=== PATIENT | female | born 1940 | race Asian ===

== ENCOUNTER 2018-09-05 22:19 | Inpatient (IN) | payer OTHER ==
[2018-09-05] MEDS ORDERED: ACETAMINOPHEN 1000 MG/100 ML VIAL (NON FORMULARY) IVPB ONE (22:27)
[2018-09-05] MEDS ORDERED: ACETAMINOPHEN INJECTION 100 ML IVPB ONE (22:27)
[2018-09-05] MEDS ORDERED: ETOMIDATE 20 MG/10 ML AMPUL IVPUSH ONE ×2 (22:30→22:34)
[2018-09-05] MEDS ORDERED: LACTATED RINGERS SOLUTION 1,000 ML/1,000 ML INFUS.BAG IV SCH ×2 (22:30→22:45)
[2018-09-05] MEDS ORDERED: SUCCINYLCHOLINE CHLORIDE 200 MG/10 ML VIAL ONE (22:31)
[2018-09-05] MEDS ORDERED: SUCCINYLCHOLINE CHLORIDE 200 MG/10 ML VIAL IVPUSH ONE (22:34)
--- NOTE | 2018-09-05 22:46 | PDOC ---
Attending Attestation - HPI HPI: 09/05/18 23:02 The patient is a 81-year-old female, with a past medical history of dementia, hypertension, hyperlipidemia, and arthritis, who was BIBA from [facility] for sepsis workup. The patient was found unresponsive, tachycardic, with a fever of 106 and a respiratory rate of 46. Patient was intubated upon arrival to protect her airway. HPI limited due to patients clinical condition. - Physicial Exam PE: 09/05/18 23:02 GENERAL: Patient is unresponsive HEENT: (+)Very dry mucous membranes. Normocephalic, atraumatic. Oropharynx is clear. NECK: Supple. No JVD. Carotid pulses 2+ and symmetric, without bruits. No thyromegaly. No lymphadenopathy. CARDIOVASCULAR: (+)Tachycardic. No murmurs, rubs, or gallops. Distal pulses are 2+ and symmetric. PULMONARY: (+)Scattered rhonchi in lungs. No wheezing or rales. ABDOMINAL: Soft. Non-distended. Normoactive bowel sounds. EXTREMITIES: No cyanosis. No clubbing. No edema. No calf tenderness. SKIN: Warm and dry. Normal capillary refill. No rashes. No jaundice. NEUROLOGICAL: Unresponsive - Medical Decision Making 09/05/18 23:56 Patient was intubated, central line was placed, fluids given, antibiotics given , pressors given. <Rasheeda Kim - Last Filed: 09/05/18 23:56> - Resident Resident Name: Parish Astudillo - ED Attending Attestation I have performed the following: I have examined & evaluated the patient, The case was reviewed & discussed with the resident, I agree w/resident's findings & plan, Exceptions are as noted - HPI HPI: 09/05/18 22:45 78 yo female BIBA from [facility] unresponsive,tachycardic,febrile 106.2 - Physicial Exam PE: 09/05/18 22:46 slender 78 yo female found to be unresponsive with fever,tachycardia and respiratory rate of 46 head ncat oropharynx edentulous arches neck supple lungs +rhonchi cvs tachycardia very dry mucus meembranes abd soft skin dry neuro unresponsive - Medical Decision Making 09/06/18 01:33 IMP SEPSIS /SIRS ICU admission <Tammy Etienne - Last Filed: 09/06/18 01:33> Attestations - Attestations 09/05/18 23:09 Documentation prepared by Rasheeda Kim, acting as durable medical equipment repairer for Tammy Etienne MD. <Rasheeda Kim - Last Filed: 09/05/18 23:56> Critical Care Total Critical Care Time (in minutes): 90 Critical Care Statement: The care of this patient involved high complexity decision making to prevent further life threatening deterioration of the patient 's condition and/or to evaluate & treat vital organ system(s) failure or risk of failure. <Rasheeda Kim - Last Filed: 09/05/18 23:56>
--- NOTE | 2018-09-05 23:05 | PDOC ---
History of Present Illness - General Chief Complaint: SIRS, Suspected/Possible Stated Complaint: UNRESPONSIVE Time Seen by Provider: 09/05/18 22:45 - History of Present Illness Initial Comments: 09/05/18 23:00 Ms. Perea is a 78 yo female w/ pmh of HTN, HLD, dementia, and parkinson's BIBA from OR for unresponsiveness. Per usp patient was in her usual state of health at 6pm. Upon arrival patient was non-responsive w/ noted rectal temperature of 106.2. Blood glucose from EMS in 200 range. EMS unable to establish a BP and patient satting in high 80's on non-rebreather. Past History - Past Medical History Allergies/Adverse Reactions: Allergies Allergy/AdvReac Type Severity Reaction Status Date / Time bee pollen Allergy Verified 09/05/18 22:39 Home Medications: Ambulatory Orders Aa/[place] John,[place]/Arg/C/Zn/Cu [Lps Critical Care Liquid] 960 ml PO DAILY Benzocaine/Menthol [Cepacol Sore Throat Lozenge] 1 each MM DAILY 07/08/16 Calcium Carbonate [Calcium Antacid] 300 mg PO DAILY 07/08/16 Calcium Carbonate [Oyster Shell Calcium] 500 mg PO DAILY 07/08/16 Cetirizine HCl [Zyrtec -] 10 mg PO DAILY 07/08/16 Gabapentin 300 mg PO DAILY 07/08/16 Guaifenesin [Siltussin SA] 100 mg PO QID 07/08/16 Hypromellose 0.5% Opth Soln [Artificial Tears] 1 - 2 drop OU QID 07/08/16 [place] 3/Dha/Epa/Other Om3/D3 [[place]-3 + Vitamin D3 Liquid] 200 ml PO DAILY 07/08 Pramipexole Di-HCl [Mirapex] 0.125 mg PO DAILY 07/08/16 Ranitidine [Zantac -] 150 mg PO BID 07/08/16 Simvastatin 20 mg PO DAILY 07/08/16 Venlafaxine HCl ER [Effexor Xr -] 75 mg PO DAILY 07/08/16 Anemia: Yes Cancer: Yes (Brain Tumor (?)) COPD: No HTN: Yes Hypercholesterolemia: Yes - Surgical History Neurologic Surgery: Yes (brain 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 *Physical Exam - Vital Signs Last Vital Signs Temp Pulse Resp BP Pulse Ox 106.1 F H 156 H 46 H 106/80 97 09/05/18 22:20 09/05/18 22:20 09/05/18 22:20 09/05/18 22:20 09/05/18 22:20 - Physical Exam Comments: 09/05/18 23:04 GENERAL: +Patient non-responsive, mucous membranes extremely dry. HEAD: No signs of trauma, normocephalic, atraumatic EYES: PERRLA, sclera anicteric, conjunctiva clear NECK: Normal ROM, supple, no lymphadenopathy, JVD, or masses LUNGS: +Coarse breath sounds appreciated throughout. HEART: +Sinus tach at presentation, normal S1 and S2, no murmurs, rubs or gallops, peripheral pulses normal and equal bilaterally. ABDOMEN: Soft, normoactive bowel sounds. No guarding, no rebound. No masses EXTREMITIES: Normal inspection, Normal range of motion, no edema. No clubbing or cyanosis. NEUROLOGICAL: +Unable to assess SKIN: +Hot, Dry, normal turgor, no rashes or lesions noted. Moderate Sedation - Procedure Monitoring Vital Signs: Procedure Monitoring Vital Signs Temperature 106.1 F H 09/05/18 22:20 Pulse Rate 156 H 09/05/18 22:20 Respiratory Rate 46 H 09/05/18 22:20 Blood Pressure 106/80 09/05/18 22:20 O2 Sat by Pulse Oximetry (%) 97 09/05/18 22:20 Procedures - Central Line Central Line Lumen: triple Central Line Position: internal jugular (R) Anesthesia: 1% Lidocaine Amount of anesthesia (ccs): 1 Complications: none Post Central Line Insertion: sutured, good blood return, position confirmed w/ CXR - Intubation Time of Intubation: 23:00 Intubation Method: orotracheal Blade used: Mac Tube Size (Fr): 7.5 Medications: Etomidate, Succinylcholine Tube position @ lip (cm): 21 Tube position confirmed by: Direct visualization, CO2 detector, Chest x-ray, Breath sounds Breath Sounds after Intubation: equal Intubation Complications: no complications Post Intubation Xray: Yes ED Treatment Course - LABORATORY CBC & Chemistry Diagram: 09/05/18 23:02 09/05/18 23:02 Medical Decision Making - Medical Decision Making 09/05/18 23:03 Sepsis protocol started upon arrival for rectal temp 106.2. Patient was intubated for airway protection using 20mg etomidate and 100mg succinylcholine. De Anda catheter was placed and 2L fluids + tylenol started. Patient currently on ventilator undergoing workup for suspected sepsis. Will also evaluate with Head CT for r/o CVA. 09/06/18 00:26 Central line placed for pressure control. Levophed running as well as versed for sedation. Vanc/Zosyn started for prophylaxis. Patient admitted to ICU for further care. 09/06/18 00:58 Patient noted to go into self limited 30 seconds of vtach. Episode ended before amiodarone could be given. 2gm Magnesium given for prophylaxis. *DC/Admit/Observation/Transfer Diagnosis at time of Disposition: Septic shock - Discharge Dispostion Decision to Admit order: Yes - Referrals - Patient Instructions - Post Discharge Activity
[2018-09-05 23:17] LABS: BASO % 0.2 % (0-2.0); HEMATOCRIT 39.9 % (32.4-45.2); LYMPH % 11.1 % (8-40); MCH 30.4 pg (25.7-33.7); MCHC 32.7 g/dl (32.0-36.0); MEAN CELL VOLUME 93.1 fl (80-96); MEAN PLT VOLUME 8.4 fl (7.5-11.1); MONO % 5.4 % (3.8-10.2); NEUT % 83.3 % (42.8-82.8); PLATELET COUNT 381 K/MM3 (134-434); RBC 4.28 M/mm3 (3.60-5.2); RDW 13.5 % (11.6-15.6); WHITE BLOOD COUNT 20.5 K/mm3 (4.0-10.0)
[2018-09-05 23:19] LABS: URINE APPEARANCE SLCLOUDY; URINE BILIRUBIN NEGATIVE (<2.0 mg/dL); URINE COLOR AMBER; URINE GLUCOSE (UA) NEGATIVE (NEGATIVE); URINE KETONE NEGATIVE (NEGATIVE); URINE LEUK ESTERASE NEGATIVE (NEGATIVE); URINE NITRITE NEGATIVE (NEGATIVE); URINE PROTEIN 1+ (NEGATIVE); URINE UROBILINOGEN 4.0 E.U/dl mg/dL (0.2-1.0)
[2018-09-05 23:23] LABS: EPI CELLS RARE /HPF (FEW); URINE BACTERIA RARE /hpf (NONE SEEN); URINE HYALINE CAST 8 /lpf; URINE MUCUS MANY
[2018-09-05 23:24] LABS: VENOUS PC02 48.4 mmHg (38-52); VENOUS PH 7.26 (7.32-7.42); VENOUS PO2 39.9 mmHg (28-48)
[2018-09-05] MEDS ORDERED: MIDAZOLAM 100 MG/100 ML MG IVPB ONE (23:30)
[2018-09-05 23:31] LABS: INR 1.73 (0.83-1.09); PROTHROMBIN TIME (PATIENT) 20.5 SEC (9.7-13.0)
[2018-09-05 23:34] LABS: ACTIVATED PTT 64.4 SECONDS (25.2-36.5)
[2018-09-05] MEDS: MIDAZOLAM 100 MG in SODIUM CHLORIDE 100 ML IVPB SCH (23:37)
[2018-09-05 23:48] LABS: ALK PHOS 67 U/L (45-117); ANION GAP 14 MMOL/L (8-16); BILIRUBIN,TOTAL 1.3 mg/dL (0.2-1); BLOOD UREA NITROGEN 77 mg/dL (7-18); CALCIUM 10.1 mg/dL (8.5-10.1); CHLORIDE 119 mmol/L (98-107); CO2 21 mmol/L (21-32); CREATININE 3.6 mg/dL (0.55-1.3); GLUCOSE,RANDOM 180 mg/dL (74-106); SGOT/AST 34 U/L (15-37); SGPT/ALT 22 U/L (13-61); SODIUM 153 mmol/L (136-145); TOT PROT 6.7 g/dl (6.4-8.2)
[2018-09-05 23:52] LABS: PLATELET ESTIMATE ADEQUATE
[2018-09-05] MEDS ORDERED: PIPERACILLIN/TAZOB 3.375 GM 3.375 GM in DEXTROSE 5%-WATER - 50 ML IVPB ONE (23:52)
[2018-09-05] MEDS ORDERED: VANCOMYCIN 1 GRAM (PRE-DOCKED) 1,000 MG/250 ML BAG IVPB ONE (23:52)
[2018-09-06] MEDS ORDERED: VANCOMYCIN 1 GRAM (PRE-DOCKED) 1,000 MG/250 ML BAG IVPB ONE (00:03)
[2018-09-06] MEDS ORDERED: PIPERACILLIN/TAZOB 3.375 GM 3.375 GM/50 ML BAG IVPB ONE (00:04)
--- NOTE | 2018-09-06 00:22 | CONSULT ---
Consult Consult Specialty:: Critical Care Referred by:: Dr. Etienne Reason for Consultation:: Intubated needs ICU care - History of Present Illness Chief Complaint: unresponsiveness History of Present Illness: 78F with history of HTN, HLD, Dementia, brought in from [facility]dc for altered mental status eventually being unresponsive. According to sign out received from ER team the patient was in her usual state of health per fdc staff at [facility] around 6pm before becoming unresponsive. Patient presented to the ER BIBA and was noted to be tachycardic, tachypenic, desaturating to 80' s on 100% non rebreather, and febrile to 106.2 per ER staff. ER describes the patient as being very "dry" and under resuscitated and she was given IVF, antipyretics, central line placed, orogastric tube placed, and she was eventually intubated. Per EMS report her blood glucose was 200 in the field. Review of systems not done due to patient being intubated and sedated. - History Source History Provided By: Medical Record, Transfer Record Limitations to Obtaining History: Intubated - Past Medical History Cardio/Vascular: Yes: Hyperlipdemia Gastrointestinal: Yes: GERD Musculoskeletal: Yes: Other (neuropathy, RLS) Rheumatology: Yes: Other (osteoarthritis) - Alcohol/Substance Use Hx Alcohol Use: No - Smoking History Smoking history: Never smoked Have you smoked in the past 12 months: No Home Medications - Allergies Allergies/Adverse Reactions: Allergies Allergy/AdvReac Type Severity Reaction Status Date / Time bee pollen Allergy Verified 09/05/18 22:39 - Home Medications Home Medications: Ambulatory Orders Aa/[place] John,[place]/Arg/C/Zn/Cu [Lps Critical Care Liquid] 960 ml PO DAILY Benzocaine/Menthol [Cepacol Sore Throat Lozenge] 1 each MM DAILY 07/08/16 Calcium Carbonate [Calcium Antacid] 300 mg PO DAILY 07/08/16 Calcium Carbonate [Oyster Shell Calcium] 500 mg PO DAILY 07/08/16 Cetirizine HCl [Zyrtec -] 10 mg PO DAILY 07/08/16 Gabapentin 300 mg PO DAILY 07/08/16 Guaifenesin [Siltussin SA] 100 mg PO QID 07/08/16 Hypromellose 0.5% Opth Soln [Artificial Tears] 1 - 2 drop OU QID 07/08/16 [place] 3/Dha/Epa/Other Om3/D3 [[place]-3 + Vitamin D3 Liquid] 200 ml PO DAILY 07/08 Pramipexole Di-HCl [Mirapex] 0.125 mg PO DAILY 07/08/16 Ranitidine [Zantac -] 150 mg PO BID 07/08/16 Simvastatin 20 mg PO DAILY 07/08/16 Venlafaxine HCl ER [Effexor Xr -] 75 mg PO DAILY 07/08/16 Family Disease History - Family Disease History Family History: Unable to Obtain (intubated) Review of Systems Unable to obtain ROS, reason: intubated/unresponsive - Review of Systems Constitutional: reports: Fever Physical Exam Vital Signs: Vital Signs Temperature 106.1 F H 09/05/18 22:20 Pulse Rate 156 H 09/05/18 22:20 Respiratory Rate 12 09/05/18 22:40 Blood Pressure 106/80 09/05/18 22:20 O2 Sat by Pulse Oximetry (%) 97 09/05/18 22:20 Constitutional: Yes: Other (intubated and sedated) Eyes: Yes: Other (pupils reactive but sluggish; senile arcus) HENT: Yes: Atraumatic, Other (dry mucous membranes) Neck: Yes: Supple, Trachea Midline Cardiovascular: Yes: Regular Rate and Rhythm, Murmur (3/6 systolic murmur best heard at RUSB. Difficult to hear heart sounds due to loud ventilatory sounds and loud ER environement) Respiratory: Yes: Intubated, Other (bronchial breath sounds bilaterally; coarse breath sounds bilaterally) Gastrointestinal: Yes: Soft, Other (bruising all over abdomen) Renal/: Yes: De Anda Present Edema: No Integumentary: Yes: Bruising Neurological: Yes: Other (sedated) Labs: CBC, BMP 09/05/18 23:02 09/05/18 23:02 Imaging - Results Chest X-ray: Image Reviewed EKG: Image Reviewed Assessment/Plan 78F presents from [facility] unresponsive found to be febrile to 106.2 now s/ p intubated. Problem List: Fever Severe Hyperthermia Septic Shock Acute 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 Acute kidney injury Troponinemia-R/O ACS vs Demand Ischemia Hypernatremia coagulopathy r/o DIC Lactic Acidosis Hyperbilirubinemia HTN HLD GERD Alzheimer's Dementia Restless leg syndrome Neuropathy osteoarthritis history of hypocalcemia Plan: Admit to ICU Continue to bolus IVF/Maintenance IVF CVP monitoring Levophed for pressor support Antibiotics-Continue renally doses Zosyn Got vancomycin-check random vanco level and redose PRN ID consult Antipyretics PRN trend lactic acid Unknown source-negative UA negative CXR. consider french scanning patient (CT head chest ABD Pelv) to try and find a source f/u BCx F/U UCx UA negative check urine studies for Osm Urea sodium electrolytes Nephrology consult Cardiology consult trend troponin Check CK CXR noted to show tube at meka and slightly going into the right bronchus. Called respiratory therapist and asked to pull the tube from 22cm at the lip to 19cm at the lip. Repeat CXR ordered Echo Temperature now 100.0 when i assessed the patient trend sodium level trend calcium level replete electrolytes PRN Protonix Hold chemical DVT PPx due to patient being hypercoagulable-INR 1.75 and PTT 65 Will send D Dimer and Fibrinogen to asses if patient is going into DIC Get ABG Trend Bilirubin level Strict I/O's De Anda for urine output monitoring - Keep UOP at least 0.5ml/kg/hr CCTime 60 minutes Case discussed with Dr. Mora-Attending Hospitalist
[2018-09-06] MEDS: NOREPINEPHRINE BITARTRATE 8,000 MCG in DEXTROSE 5%-WATER - 492 ML IV SCH (00:36)
[2018-09-06] MEDS ORDERED: AMIODARONE HCL 150 MG/3 ML VIAL IVPUSH ONE (00:56)
[2018-09-06] MEDS ORDERED: MAGNESIUM SULF 50% (8.12 MEQ/2 ML-1 GM VIAL) IVPB ONE (00:57)
[2018-09-06] MEDS ORDERED: MAGNESIUM 1GM/D5W - 2 GM/200 ML IVPB IVPB ONE (01:00)
[2018-09-06] MEDS ORDERED: SODIUM CHLORIDE 1,000 ML IV STA (01:12)
[2018-09-06] MEDS ORDERED: SODIUM CHLORIDE 1,000 ML IV SCH (01:15)
[2018-09-06] MEDS ORDERED: LACTATED RINGERS SOLUTION 1000 ML INFUS.BAG IV ONE (01:32)
--- NOTE | 2018-09-06 02:06 | HP ---
CHIEF COMPLAINT: unresponsiveness PCP: Kylie History obtained from EMR as patient is unresponsive and nonverbal HISTORY OF PRESENT ILLNESS: 78 yo female w/ pmh of HTN, HLD, dementia, and parkinson's BIBA from [place] for unresponsiveness. Patient was in her usual state of health at 6pm on 09/05. Upon arrival patient was non-responsive w/ noted rectal temperature of 106.2. Patient was intubated for 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 and right IJ was placed for pressor administration. Broad spectrum antibiotics- vancomycin and zosyn were administered. ER course was notable for: (1) right IJ (2) intubation (3) zosyn, vancomycin Recent Travel: unknown PAST MEDICAL HISTORY: HTN, HLD, dementia, and parkinsonism PAST SURGICAL HISTORY: unknown Social History: unknown Smoking: Alcohol: Drugs: Family History: unknown Allergies bee pollen Allergy (Verified 09/05/18 22:39) HOME MEDICATIONS: Home Medications Medication Instructions Recorded Aa/[place] John,[place]/Arg/C/Zn/Cu 960 ml PO DAILY 07/08/16 [Lps Critical Care Liquid] Benzocaine/Menthol [Cepacol Sore 1 each MM DAILY 07/08/16 Throat Lozenge] Calcium Carbonate [Calcium Antacid] 300 mg PO DAILY 07/08/16 Calcium Carbonate [Oyster Shell 500 mg PO DAILY 07/08/16 Calcium] Cetirizine HCl [Zyrtec -] 10 mg PO DAILY 07/08/16 Gabapentin 300 mg PO DAILY 07/08/16 Guaifenesin [Siltussin SA] 100 mg PO QID 07/08/16 Hypromellose 0.5% Opth Soln 1 - 2 drop OU QID 07/08/16 [Artificial Tears] [place] 3/Dha/Epa/Other Om3/D3 200 ml PO DAILY 07/08/16 [[place]-3 + Vitamin D3 Liquid] Pramipexole Di-HCl [Mirapex] 0.125 mg PO DAILY 07/08/16 Ranitidine [Zantac -] 150 mg PO BID 07/08/16 Simvastatin 20 mg PO DAILY 07/08/16 Venlafaxine HCl ER [Effexor Xr -] 75 mg PO DAILY 07/08/16 REVIEW OF SYSTEMS -unable to obtain PHYSICAL EXAMINATION Vital Signs - 24 hr 09/05/18 09/05/18 09/05/18 22:20 22:40 23:00 Temperature 106.1 F H 106.1 F H Pulse Rate 156 H 156 H Pulse Rate [ 156 H Left Radial] Respiratory 46 H 12 156 H Rate Blood Pressure 106/80 106/80 Blood Pressure 106/80 [Right Arm] O2 Sat by Pulse 97 97 Oximetry (%) 09/06/18 09/06/18 09/06/18 00:33 00:36 00:56 Temperature 100 F H Pulse Rate 96 H Pulse Rate [ 94 H 102 H Left Radial] Respiratory 14 Rate Blood Pressure 66/46 L Blood Pressure 66/46 L 99/59 L [Right Arm] O2 Sat by Pulse 100 Oximetry (%) 09/06/18 09/06/18 09/06/18 01:02 01:20 01:24 Temperature Pulse Rate Pulse Rate [ 99 H 95 H Left Radial] Respiratory 15 15 18 Rate Blood Pressure Blood Pressure 93/54 L 92/56 L [Right Arm] O2 Sat by Pulse 100 100 Oximetry (%) 09/06/18 01:44 Temperature Pulse Rate Pulse Rate [ 96 H Left Radial] Respiratory 15 Rate Blood Pressure Blood Pressure 97/59 L [Right Arm] O2 Sat by Pulse 100 Oximetry (%) GENERAL: intubated, unresponsive, sedated HEAD: Normal with no signs of trauma. EYES: Pupils equal, round and reactive to light, extraocular movements intact, sclera anicteric, conjunctiva clear. No lid lag. EARS, NOSE, THROAT: Ears normal, nares patent, oropharynx clear without exudates. Moist mucous membranes. NECK: Normal range of motion, supple without lymphadenopathy, JVD, or masses, right IJ LUNGS: Breath sounds equal, mechanical, no wheezing or crackles appreciated HEART: tachycardia, normal S1 and S2 without murmur, rub or gallop. ABDOMEN: Soft, nontender, not distended, normoactive bowel sounds, no guarding, no rebound, no masses. No hepatomegaly or splenomegaly. MUSCULOSKELETAL: Normal range of motion at all joints. No bony deformities or tenderness. No CVA tenderness. UPPER EXTREMITIES: 2+ pulses, warm, well-perfused. No cyanosis. No clubbing. No peripheral edema. LOWER EXTREMITIES: 2+ pulses, warm, well-perfused. No calf tenderness. No peripheral edema. NEUROLOGICAL: sedated SKIN: Warm, dry, normal turgor, no rashes or lesions noted Elder+ Laboratory Results - last 24 hr 09/05/18 09/05/18 09/05/18 22:45 23:02 23:02 WBC 20.5 H RBC 4.28 Hgb 13.0 Hct 39.9 MCV 93.1 MCH 30.4 MCHC 32.7 RDW 13.5 D Plt Count 381 MPV 8.4 D Absolute Neuts (auto) 17.0 H Total Counted 100 Neutrophils % 83.3 H Neutrophils % (Manual) 85.0 H Band Neutrophils % 2.0 Lymphocytes % 11.1 D Lymphocytes % (Manual) 7.0 L Monocytes % 5.4 Monocytes % (Manual) 6 Eosinophils % 0.0 D Basophils % 0.2 Nucleated RBC % 0 Platelet Estimate Adequate Platelet Comment No clumping noted PT with INR 20.50 H INR 1.73 H PTT (Actin FS) 64.4 H VBG pH POC VBG pCO2 POC VBG pO2 Mixed VBG HCO3 Sodium Potassium Chloride Carbon Dioxide Anion Gap BUN Creatinine Creat Clearance w eGFR Random Glucose Lactic Acid 6.7 H* Calcium Total Bilirubin AST ALT Alkaline Phosphatase Troponin I Total Protein Albumin Urine Color Urine Appearance Urine pH Ur Specific [place] Urine Protein Urine Glucose (UA) Urine Ketones Urine Blood Urine Nitrite Urine Bilirubin Urine Urobilinogen Ur Leukocyte Esterase Urine WBC (Auto) Urine RBC (Auto) Ur Epithelial Cells Urine Bacteria Hyaline Casts Urine Mucus 09/05/18 09/05/18 09/05/18 23:02 23:02 23:02 WBC RBC Hgb Hct MCV MCH MCHC RDW Plt Count MPV Absolute Neuts (auto) Total Counted Neutrophils % Neutrophils % (Manual) Band Neutrophils % Lymphocytes % Lymphocytes % (Manual) Monocytes % Monocytes % (Manual) Eosinophils % Basophils % Nucleated RBC % Platelet Estimate Platelet Comment PT with INR INR PTT (Actin FS) VBG pH 7.26 L POC VBG pCO2 48.4 POC VBG pO2 39.9 Mixed VBG HCO3 20.8 Sodium 153 H Potassium 5.0 Chloride 119 H Carbon Dioxide 21 Anion Gap 14 BUN 77 H Creatinine 3.6 H Creat Clearance w eGFR 12.29 Random Glucose 180 H Lactic Acid Calcium 10.1 Total Bilirubin 1.3 H AST 34 ALT 22 Alkaline Phosphatase 67 Troponin I 2.59 H* Total Protein 6.7 Albumin 3.0 L Urine Color Carli Urine Appearance Slcloudy Urine pH 5.0 Ur Specific [place] 1.024 Urine Protein 1+ H Urine Glucose (UA) Negative Urine Ketones Negative Urine Blood Negative Urine Nitrite Negative Urine Bilirubin Negative Urine Urobilinogen 4.0 e.u/dl H Ur Leukocyte Esterase Negative Urine WBC (Auto) 2 Urine RBC (Auto) 1 Ur Epithelial Cells Rare Urine Bacteria Rare Hyaline Casts 8 Urine Mucus Many EKG reviewed- sinus tachycardia cxr - ET tube appeared to be in past meka in right bronchus, will reposition ASSESSMENT/PLAN: 78yo woman with septic shock with unknown source of infection 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, MODS, HAGMA, severe lactic acidosis. Hypernatremia likely from dehydration. Renal failure may be secondary to sepsis vs prerenal. +troponin might be from demand ischemia but cannot r/o ACS. NO signs of acute ischemia on ekg. -admit to ICU -ventilator and manage setting as per ABG result -blood cultures -urine culture -i/o -daily weight -elder catheter for accurate i/o -trend lactate -send ddimer and fibronogen to r/o DIC -repeat bmp q 4hrs, careful not to overcorrect sodium -IV fluid hydration -c/w pressor, maintain MAP >65 -CT of head/ chest/ abd/pelvis to r/o occult source of infection and r/o acute intracranial insults -avoid contrast due to CROW -zosyn -vancomycin -ID consult -renal consult -cardiology consult -aspirin -plavix -renal lytes, serum and urine osm -avoid uneccessary nephrotoxins -blood glucose monitoring -aim for glucose <180 mg/dl -NPO for now -reposition ET, repeat CXR -SCDs for DVT ppx -patient is full code DIscussed with housestaff critical care time 35min Visit type - Emergency Visit Emergency Visit: Yes ED Registration Date: 09/06/18 Care time: The patient presented to the Emergency Department on the above date and was hospitalized for further evaluation of their emergent condition. - New Patient This patient is new to me today: Yes Date on this admission: 09/06/18 - Critical Care Critical Care patient: Yes Total Critical Care Time (in minutes): 35 Critical Care Statement: The care of this patient involved high complexity decision making to prevent further life threatening deterioration of the patient 's condition and/or to evaluate & treat vital organ system(s) failure or risk of failure.
[2018-09-06] MEDS: LACTATED RINGERS SOLUTION 1,000 ML/1,000 ML INFUS.BAG IV SCH (04:00)
[2018-09-06] MEDS ORDERED: DEXAMETHASONE SOD PHOSPHATE 10 MG/1 ML VIAL IVPUSH ONE (05:22)
[2018-09-06 06:13] LABS: INR 1.4 (0.83-1.09); PROTHROMBIN TIME (PATIENT) 16.6 SEC (9.7-13.0)
[2018-09-06 06:16] LABS: ACTIVATED PTT 52.5 SECONDS (25.2-36.5)
[2018-09-06] MEDS: levETIRAcetam 500 MG/5 ML INJECTION VIAL IVPB SCH ×2 (06:19→21:37)
[2018-09-06 06:27] LABS: BASO % 0.3 % (0-2.0); HEMATOCRIT 35.8 % (32.4-45.2); HEMOGLOBIN 11.2 GM/dL (10.7-15.3); LYMPH % 14.9 % (8-40); MCH 29.2 pg (25.7-33.7); MCHC 31.3 g/dl (32.0-36.0); MEAN CELL VOLUME 93.2 fl (80-96); MEAN PLT VOLUME 8.7 fl (7.5-11.1); MONO % 9.1 % (3.8-10.2); NEUT % 75.7 % (42.8-82.8); PLATELET COUNT 317 K/MM3 (134-434); RBC 3.84 M/mm3 (3.60-5.2); RDW 12.9 % (11.6-15.6); WHITE BLOOD COUNT 16.3 K/mm3 (4.0-10.0)
[2018-09-06 06:28] LABS: ALBUMIN 2.7 g/dl (3.4-5.0); ALK PHOS 58 U/L (45-117); ANION GAP 11 MMOL/L (8-16); BILIRUBIN,TOTAL 1.8 mg/dL (0.2-1); BLOOD UREA NITROGEN 65 mg/dL (7-18); CALCIUM 9.1 mg/dL (8.5-10.1); CHLORIDE 114 mmol/L (98-107); CO2 21 mmol/L (21-32); CREATININE 2.7 mg/dL (0.55-1.3); GLUCOSE,RANDOM 287 mg/dL (74-106); PHOSPHOROUS 2.8 mg/dL (2.5-4.9); POTASSIUM 3.1 mmol/L (3.5-5.1); SGOT/AST 37 U/L (15-37); SGPT/ALT 24 U/L (13-61); SODIUM 147 mmol/L (136-145); TOT PROT 5.8 g/dl (6.4-8.2)
[2018-09-06 07:04] LABS: CARBOXYHEMOGLOBIN 0.9 gm% (0.5-2.0)
--- NOTE | 2018-09-06 07:33 | PN ---
Physical Exam: SUBJECTIVE: Patient seen and examined at bedside. Pt placed on pressors, IV fluids. Off sedation, but nonresponsive and stable overnight. OBJECTIVE: Vital Signs Period Temp Pulse Resp BP Sys/Fried Pulse Ox Last 24 Hr 99 F-106.1 F 90-156 12-156 66-114/46-80 95-100 GENERAL: Intubated. NAD. HEENT: AT/NC. Pupils constricted b/l. Dry mucus membranes. NECK: Supple. LUNGS: CTA B/L. No wheezes noted. HEART: RRR. Normal S1, S2. ABDOMEN: Soft, NT/ND. Normoactive BS in all 4Qs. EXTREMITIES: 2+ pulses, warm, well-perfused, no edema. NEUROLOGICAL: Unable to assess. SKIN: Warm, dry. Laboratory Results - last 24 hr 09/05/18 09/05/18 09/05/18 22:45 23:02 23:02 WBC 20.5 H RBC 4.28 Hgb 13.0 Hct 39.9 MCV 93.1 MCH 30.4 MCHC 32.7 RDW 13.5 D Plt Count 381 MPV 8.4 D Absolute Neuts (auto) 17.0 H Total Counted 100 Neutrophils % 83.3 H Neutrophils % (Manual) 85.0 H Band Neutrophils % 2.0 Lymphocytes % 11.1 D Lymphocytes % (Manual) 7.0 L Monocytes % 5.4 Monocytes % (Manual) 6 Eosinophils % 0.0 D Basophils % 0.2 Nucleated RBC % 0 Platelet Estimate Adequate Platelet Comment No clumping noted PT with INR 20.50 H INR 1.73 H PTT (Actin FS) 64.4 H Fibrinogen D-Dimer VBG pH POC VBG pCO2 POC VBG pO2 Mixed VBG HCO3 Carboxyhemoglobin Methemoglobin Sodium Potassium Chloride Carbon Dioxide Anion Gap BUN Creatinine Creat Clearance w eGFR Random Glucose Lactic Acid 6.7 H* Calcium Phosphorus Magnesium Total Bilirubin AST ALT Alkaline Phosphatase Creatine Kinase Creatine Kinase Index CK-MB (CK-2) Troponin I Total Protein Albumin Urine Color Urine Appearance Urine pH Ur Specific [place] Urine Protein Urine Glucose (UA) Urine Ketones Urine Blood Urine Nitrite Urine Bilirubin Urine Urobilinogen Ur Leukocyte Esterase Urine WBC (Auto) Urine RBC (Auto) Ur Epithelial Cells Urine Bacteria Hyaline Casts Urine Mucus Urine Osmolality Ur Random Sodium Ur Random Potassium Ur Random Chloride Ur Random Urea Nitrogn Urine Creatinine Random Vancomycin 09/05/18 09/05/18 09/05/18 23:02 23:02 23:02 WBC RBC Hgb Hct MCV MCH MCHC RDW Plt Count MPV Absolute Neuts (auto) Total Counted Neutrophils % Neutrophils % (Manual) Band Neutrophils % Lymphocytes % Lymphocytes % (Manual) Monocytes % Monocytes % (Manual) Eosinophils % Basophils % Nucleated RBC % Platelet Estimate Platelet Comment PT with INR INR PTT (Actin FS) Fibrinogen D-Dimer VBG pH 7.26 L POC VBG pCO2 48.4 POC VBG pO2 39.9 Mixed VBG HCO3 20.8 Carboxyhemoglobin Methemoglobin Sodium 153 H Potassium 5.0 Chloride 119 H Carbon Dioxide 21 Anion Gap 14 BUN 77 H Creatinine 3.6 H Creat Clearance w eGFR 12.29 Random Glucose 180 H Lactic Acid Calcium 10.1 Phosphorus Magnesium Total Bilirubin 1.3 H AST 34 ALT 22 Alkaline Phosphatase 67 Creatine Kinase Creatine Kinase Index CK-MB (CK-2) Troponin I 2.59 H* Total Protein 6.7 Albumin 3.0 L Urine Color Carli Urine Appearance Slcloudy Urine pH 5.0 Ur Specific [place] 1.024 Urine Protein 1+ H Urine Glucose (UA) Negative Urine Ketones Negative Urine Blood Negative Urine Nitrite Negative Urine Bilirubin Negative Urine Urobilinogen 4.0 e.u/dl H Ur Leukocyte Esterase Negative Urine WBC (Auto) 2 Urine RBC (Auto) 1 Ur Epithelial Cells Rare Urine Bacteria Rare Hyaline Casts 8 Urine Mucus Many Urine Osmolality Ur Random Sodium Ur Random Potassium Ur Random Chloride Ur Random Urea Nitrogn Urine Creatinine Random Vancomycin 09/06/18 09/06/18 09/06/18 02:08 02:08 02:08 WBC RBC Hgb Hct MCV MCH MCHC RDW Plt Count MPV Absolute Neuts (auto) Total Counted Neutrophils % Neutrophils % (Manual) Band Neutrophils % Lymphocytes % Lymphocytes % (Manual) Monocytes % Monocytes % (Manual) Eosinophils % Basophils % Nucleated RBC % Platelet Estimate Platelet Comment PT with INR INR PTT (Actin FS) Fibrinogen 238.0 D-Dimer 4076 H VBG pH POC VBG pCO2 POC VBG pO2 Mixed VBG HCO3 Carboxyhemoglobin Methemoglobin Sodium Potassium Chloride Carbon Dioxide Anion Gap BUN Creatinine Creat Clearance w eGFR Random Glucose Lactic Acid 3.2 H* Calcium Phosphorus Magnesium Total Bilirubin AST ALT Alkaline Phosphatase Creatine Kinase 191 Creatine Kinase Index 2.2 CK-MB (CK-2) 4.3 H Troponin I 3.41 H* Total Protein Albumin Urine Color Urine Appearance Urine pH Ur Specific [place] Urine Protein Urine Glucose (UA) Urine Ketones Urine Blood Urine Nitrite Urine Bilirubin Urine Urobilinogen Ur Leukocyte Esterase Urine WBC (Auto) Urine RBC (Auto) Ur Epithelial Cells Urine Bacteria Hyaline Casts Urine Mucus Urine Osmolality Ur Random Sodium Ur Random Potassium Ur Random Chloride Ur Random Urea Nitrogn Urine Creatinine Random Vancomycin 09/06/18 09/06/18 09/06/18 02:12 02:12 05:15 WBC RBC Hgb Hct MCV MCH MCHC RDW Plt Count MPV Absolute Neuts (auto) Total Counted Neutrophils % Neutrophils % (Manual) Band Neutrophils % Lymphocytes % Lymphocytes % (Manual) Monocytes % Monocytes % (Manual) Eosinophils % Basophils % Nucleated RBC % Platelet Estimate Platelet Comment PT with INR 16.60 H INR 1.40 H PTT (Actin FS) 52.5 H Fibrinogen D-Dimer VBG pH POC VBG pCO2 POC VBG pO2 Mixed VBG HCO3 Carboxyhemoglobin Methemoglobin Sodium Potassium Chloride Carbon Dioxide Anion Gap BUN Creatinine Creat Clearance w eGFR Random Glucose Lactic Acid Calcium Phosphorus Magnesium Total Bilirubin AST ALT Alkaline Phosphatase Creatine Kinase Creatine Kinase Index CK-MB (CK-2) Troponin I Total Protein Albumin Urine Color Urine Appearance Urine pH Ur Specific [place] Urine Protein Urine Glucose (UA) Urine Ketones Urine Blood Urine Nitrite Urine Bilirubin Urine Urobilinogen Ur Leukocyte Esterase Urine WBC (Auto) Urine RBC (Auto) Ur Epithelial Cells Urine Bacteria Hyaline Casts Urine Mucus Urine Osmolality 589 Ur Random Sodium < 18 L Ur Random Potassium 92.0 Ur Random Chloride 12 L Ur Random Urea Nitrogn 719 Urine Creatinine 339.0 H Random Vancomycin 09/06/18 09/06/18 09/06/18 05:15 05:15 05:15 WBC RBC Hgb Hct MCV MCH MCHC RDW Plt Count MPV Absolute Neuts (auto) Total Counted Neutrophils % Neutrophils % (Manual) Band Neutrophils % Lymphocytes % Lymphocytes % (Manual) Monocytes % Monocytes % (Manual) Eosinophils % Basophils % Nucleated RBC % Platelet Estimate Platelet Comment PT with INR INR PTT (Actin FS) Fibrinogen D-Dimer VBG pH POC VBG pCO2 POC VBG pO2 Mixed VBG HCO3 Carboxyhemoglobin Methemoglobin Sodium 147 H Potassium 3.1 L Chloride 114 H Carbon Dioxide 21 Anion Gap 11 BUN 65 H Creatinine 2.7 H Creat Clearance w eGFR 17.13 Random Glucose 287 H Lactic Acid 2.1 H Calcium 9.1 Phosphorus 2.8 Magnesium 3.0 H Total Bilirubin 1.8 H AST 37 ALT 24 Alkaline Phosphatase 58 Creatine Kinase 298 H Creatine Kinase Index 2.7 CK-MB (CK-2) 8.2 H Troponin I 3.82 H* Total Protein 5.8 L Albumin 2.7 L Urine Color Urine Appearance Urine pH Ur Specific [place] Urine Protein Urine Glucose (UA) Urine Ketones Urine Blood Urine Nitrite Urine Bilirubin Urine Urobilinogen Ur Leukocyte Esterase Urine WBC (Auto) Urine RBC (Auto) Ur Epithelial Cells Urine Bacteria Hyaline Casts Urine Mucus Urine Osmolality Ur Random Sodium Ur Random Potassium Ur Random Chloride Ur Random Urea Nitrogn Urine Creatinine Random Vancomycin 20.2 09/06/18 06:10 WBC RBC Hgb Hct MCV MCH MCHC RDW Plt Count MPV Absolute Neuts (auto) Total Counted Neutrophils % Neutrophils % (Manual) Band Neutrophils % Lymphocytes % Lymphocytes % (Manual) Monocytes % Monocytes % (Manual) Eosinophils % Basophils % Nucleated RBC % Platelet Estimate Platelet Comment PT with INR INR PTT (Actin FS) Fibrinogen D-Dimer VBG pH POC VBG pCO2 POC VBG pO2 Mixed VBG HCO3 Carboxyhemoglobin 0.9 Methemoglobin 0.2 L Sodium Potassium Chloride Carbon Dioxide Anion Gap BUN Creatinine Creat Clearance w eGFR Random Glucose Lactic Acid Calcium Phosphorus Magnesium Total Bilirubin AST ALT Alkaline Phosphatase Creatine Kinase Creatine Kinase Index CK-MB (CK-2) Troponin I Total Protein Albumin Urine Color Urine Appearance Urine pH Ur Specific [place] Urine Protein Urine Glucose (UA) Urine Ketones Urine Blood Urine Nitrite Urine Bilirubin Urine Urobilinogen Ur Leukocyte Esterase Urine WBC (Auto) Urine RBC (Auto) Ur Epithelial Cells Urine Bacteria Hyaline Casts Urine Mucus Urine Osmolality Ur Random Sodium Ur Random Potassium Ur Random Chloride Ur Random Urea Nitrogn Urine Creatinine Random Vancomycin Active Medications Generic Name Dose Route Start Last Admin Trade Name Freq PRN Reason Stop Dose Admin Chlorhexidine Gluconate 1 applic 09/06/18 22:00 Hibiclens For Decolonization - TP HS [facility] Dexamethasone Sodium Phosphate 6 mg 09/06/18 09:00 Decadron Injection - IVPUSH Q6H-IV G[facility] Midazolam HCl 100 mg/ Sodium 100 mls @ 1 mls/hr 09/05/18 23:00 09/05/18 23:37 Chloride IVPB 1 mg/hr TITR GARRISON 1 mls/hr Administration Protocol 1 MG/HR Norepinephrine Bitartrate 8, 500 mls @ 18.75 mls/hr 09/05/18 23:45 09/06/18 00:36 000 mcg/ Dextrose IV 5 mcg/min TITR G[facility]ISON 18.75 mls/hr Administration Protocol 5 MCG/MIN Piperacillin Sod/Tazobactam 50 mls @ 100 mls/hr 09/06/18 18:00 Sod 2.25 gm/ Dextrose IVPB Q8H-IV [facility]ISON Protocol Lactated Ringer's 1,000 ml in 1,000 mls @ 125 mls/hr 09/06/18 01:45 09/06/18 04:00 Lactated Ringers Solution IV 125 mls/hr ASDIR GARR[facility] Administration Piperacillin Sod/Tazobactam 50 mls @ 100 mls/hr 09/06/18 08:00 Sod 2.25 gm/ Dextrose IVPB 09/06/18 08:29 ONCE ONE Protocol Levetiracetam 500 mg 09/06/18 06:15 09/06/18 06:19 Keppra Injection - IVPB 500 mg BID G[facility] Administration Mupirocin 1 applic 09/06/18 10:00 Bactroban Ointment (For Decolonization) - NS 09/11/18 09:59 BID G[facility] Pantoprazole Sodium 40 mg 09/06/18 10:00 Protonix Iv IVPUSH DAILY [facility] ASSESSMENT/PLAN: 78yo woman with septic shock with unknown source of infection 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, MODS, HAGMA, severe lactic acidosis. Hypernatremia likely from dehydration. Renal failure may be secondary to sepsis vs prerenal. Neurology #Multiple brain lesions, edema, midline shift found on head CT -Decadron 6 mg Q6H -Keppra 500 BID -monitor CVP, maintain at 8-12 -Pt came in with fever of 106.9 rectally, there is a possibility this may be central vs. infectious etiology due to significant multiple lesion w/ midline shift on head CT -Neurosurg consulted, recommended to transfer to [facility]. Per night resident , report was given to [facility] neurosurg resident as well as ICU attending. Awaiting callback for accepting physician and available bed at [facility]. #Alzheimer's Dementia -hold home meds Pulmonary #Acute Respiratory Failure 2/2 ? septic shock -Intubated. 12/400/60%/5 -CT chest showed honeycombing and cystic changes w/ pleural thickening and small calcifications on R lung apex. Bibasal atelectatic changes w/ mild pleural thickening and trace b/l pleural effusion; cannot r/o superimposed infiltrates. No evid of SBO. Cardiology #Shock 2/2 sepsis vs. neurogenic -cont IVf -IV pressors, maintain MAP >65 #Elevated troponins, likely 2/2 demand ischemia -2.49>3.41>3.82; repeat trops ordered -EKG showed sinus tachycardia, no evidence of ST-T changes or acute ischemic changes -Echo ordered #HTN -Currently hypotensive 2/2 septic shock -On Levophed 10 #HLD -hold home meds for now GI #GERD -Protonix 40 QD #Hyperbilirubinemia -CTAP showed unremarkable spleen/liver. GB overdistended w/ tiny stones layering at fundus. Pancreas and adrenal glands both unremarkable. Renal #CROW, likely 2/2 dehydration -no evidence of hydronephrosis -IVf -recheck CMP #Hypernatremia -LR @ 125 -recheck CMP #Hypokalemia -KCl 10 mEq x3 bags -replete PRN -recheck K+ ID #Septic Shock 2/2 unknown etiology -Vancomycin and Zosyn given -Per ID, add Cefepime -106.9 rectal temp; may be due to central process, but need to r/o infection first -f/u BCx, UCx -CXR showed b/l apical pleural thickening, chronic post-inflammatory changes noted in R apex w/ peribronchial thickening, cystic changes. #Lactic acidosis -6.7 > 3.2 > 2.1 -IVf given Hematology #Coagulopathy; elevated INR -2U FFP ordered Prophylaxis GI- Protonix 40 IVP QD DVT- SCDs; hold chemical ppx due to elevated INR FEN -LR @ 125 -K+ repleted; recheck CMP -NPO dispo -Spoke to Santos at [facility] regarding status pt transfer. Pt has been accepted to the ICU under Dr. Cueto, however, waiting for available bed. Awaiting call back. Visit type - Emergency Visit Emergency Visit: Yes ED Registration Date: 09/06/18 Care time: The patient presented to the Emergency Department on the above date and was hospitalized for further evaluation of their emergent condition. - New Patient This patient is new to me today: Yes Date on this admission: 09/06/18 - Critical Care Critical Care patient: Yes Total Critical Care Time (in minutes): 40 Critical Care Statement: The care of this patient involved high complexity decision making to prevent further life threatening deterioration of the patient 's condition and/or to evaluate & treat vital organ system(s) failure or risk of failure.
[2018-09-06] MEDS ORDERED: PIPERACILLIN/TAZOB 2.25 GM 2.25 GM in DEXTROSE 5%-WATER - 50 ML IVPB ONE (08:00)
[2018-09-06] MEDS ORDERED: NOREPINEPHRINE BITARTRATE 4 MG/4 ML ML IV ONE (08:44)
[2018-09-06] MEDS: DEXAMETHASONE SOD PHOSPHATE 10 MG/1 ML VIAL IVPUSH SCH ×3 (09:35→21:37)
--- NOTE | 2018-09-06 09:43 | CON.ID ---
Consult Consult Specialty:: infectious disease Referred by:: dr keating - History of Present Illness Chief Complaint: fever 106 History of Present Illness: 78 yo female NHR prior brain surgery 2013 found unresponsive with fever 106 at the [place] she was sent to ED where she was intubated for airway protection she was treated with IVF and vancomycin/zosyn she was started on levophed ct scans of chest abd/pelvis were done- prelim report with bronchiectasis RUL head ct with larg right brain mass with edema and question of bleeding into the orbit there is midline shift now on steroids and keppra she is unresponsive and intubated - History Source History Provided By: Medical Record Limitations to Obtaining History: Clinical Condition - Past Medical History AUDIT INTERN: Yes: Dementia Cardio/Vascular: Yes: HTN, Hyperlipdemia Gastrointestinal: Yes: GERD Musculoskeletal: Yes: Other (neuropathy, RLS) Rheumatology: Yes: Other (osteoarthritis) - Past Surgical History Additional Surgical History: prior brain surgery 2012- details unknown - Alcohol/Substance Use Hx Alcohol Use: No - Smoking History Smoking history: Never smoked Have you smoked in the past 12 months: No - Social History Usual Living Arrangement: [facility] ADL: Support Services 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 Place of : Other ([facility]) History of Recent Travel: No Home Medications - Allergies Allergies/Adverse Reactions: Allergies Allergy/AdvReac Type Severity Reaction Status Date / Time bee pollen Allergy Verified 09/05/18 22:39 - Home Medications Home Medications: Ambulatory Orders Calcium Carbonate [Oyster Shell Calcium] 500 mg PO DAILY 07/08/16 Gabapentin 300 mg PO TID 07/08/16 Pramipexole Di-HCl [Mirapex] 0.125 mg PO DAILY 07/08/16 Ranitidine [Zantac -] 150 mg PO DAILY 07/08/16 Simvastatin 20 mg PO DAILY 07/08/16 Albuterol 2.5/Ipratropium 0.5 [Duoneb -] 3 ml IH QID 09/06/18 Heparin - 5,000 unit SQ BID 09/06/18 Polyvinyl Alcohol [Artificial Tears] 1 drop OD DAILY 09/06/18 Family Disease History - Family Disease History Family History: Unable to Obtain Review of Systems Unable to obtain ROS, reason: unable to obtain Physical Exam Vital Signs: Vital Signs Temperature 97.4 F L 09/06/18 08:00 Pulse Rate 89 09/06/18 08:23 Respiratory Rate 17 09/06/18 08:23 Blood Pressure 124/75 09/06/18 08:00 O2 Sat by Pulse Oximetry (%) 98 09/06/18 08:23 Constitutional: Yes: Thin HENT: Yes: Atraumatic, Normocephalic, Other (orally intubated) Cardiovascular: Yes: Regular Rate and Rhythm Respiratory: Yes: CTA Bilaterally, Diminished Gastrointestinal: Yes: Normal Bowel Sounds, Soft ...Rectal Exam: Yes: Deferred Renal/: No: Bladder Distention Musculoskeletal: Yes: WNL Extremities: Yes: WNL Edema: No Integumentary: Yes: Other (no skin breakdown). No: Rash Neurological: Yes: Unresponsive Labs: CBC, BMP 09/06/18 05:15 09/06/18 05:15 UA negative cultures pending Laboratory Tests 09/05/18 09/05/18 09/06/18 22:45 23:02 02:08 Lactic Acid 6.7 H* Troponin I 2.59 H* 3.41 H* Random Vancomycin 09/06/18 09/06/18 09/06/18 02:08 05:15 05:15 Lactic Acid 3.2 H* Troponin I 3.82 H* Random Vancomycin 20.2 09/06/18 05:15 Lactic Acid 2.1 H Troponin I Random Vancomycin Imaging - Results Chest X-ray: Report Reviewed Cat Scan: Report Reviewed Problem List - Problems (1) Septic shock Code(s): A41.9 - SEPSIS, UNSPECIFIED ORGANISM; R65.21 - SEVERE SEPSIS WITH SEPTIC SHOCK (2) Fever Code(s): R50.9 - FEVER, UNSPECIFIED (3) Hypotension Code(s): I95.9 - HYPOTENSION, UNSPECIFIED (4) 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 Assessment/Plan sepsis suspect fever/hypotension due to AUDIT INTERN process but agree with cultures/antiibotics no history of MDRO vancomycin "on board"- redose by levels will add cefepime and flagyl received zosyn overnight CROW (new)- no evidence of hydronelphrosis- dose antibiotics for crcl 15 positive troponins- f/u cardiology f/u cultures for transfer to [facility] over 45 minutes spent in the care of this critically ill icu patient overall prognosis is poor
[2018-09-06] MEDS ORDERED: PIPERACILLIN/TAZOBACTAM 2.25 GM VIAL IVPB ONE (09:45)
[2018-09-06] MEDS ORDERED: DEXTROSE 5%-WATER - 50 ML IVPB ONE (09:45)
[2018-09-06] MEDS: PANTOPRAZOLE SODIUM 40 MG VIAL IVPUSH SCH (09:49)
[2018-09-06] MEDS ORDERED: CEFEPIME 1 GM in DEXTROSE 5%-WATER - 100 ML IVPB SCH (10:00)
[2018-09-06] MEDS ORDERED: HEPARIN NA (PORCINE) 5,000 UNITS/ML 1ML VIAL SQ SCH (10:00)
[2018-09-06] MEDS: ALBUTEROL SO4 2.5/IPRATROPIUM 0.5 INH SOL 3 ML VIAL.NEB. NEB SCH ×3 (12:00→20:17)
--- NOTE | 2018-09-06 12:26 | PN ---
Progress Note, Physician - Current Medication List Current Medications: Active Medications Albuterol/Ipratropium (Duoneb -) 1 amp NEB RQID [facility]ARRISON Chlorhexidine Gluconate (Hibiclens For Decolonization -) 1 applic TP HS [facility] Dexamethasone Sodium Phosphate (Decadron Injection -) 6 mg IVPUSH Q6H-IV GARRISON Last Admin: 09/06/18 09:35 Dose: 6 mg Midazolam HCl 100 mg/ Sodium (Chloride) 100 mls @ 1 mls/hr IVPB TITR [facility]; Protocol Last Titration: 09/06/18 07:00 Dose: 0 mg/hr, 0 mls/hr Norepinephrine Bitartrate 8, (000 mcg/ Dextrose) 500 mls @ 18.75 mls/hr IV TITR [facility]; Protocol Last Titration: 09/06/18 09:00 Dose: 10 mcg/min, 37.5 mls/hr Lactated Ringer's (Lactated Ringers Solution) 1,000 ml in 1,000 mls @ 125 mls/ hr IV ASDIR [facility] Last Admin: 09/06/18 04:00 Dose: 125 mls/hr Cefepime HCl 1 gm/ Dextrose 100 mls @ 100 mls/hr IVPB DAILY [facility]; Protocol Potassium Chloride (Potassium Chloride 10 Meq Premix Ivpb -) 10 meq in 100 mls @ 100 mls/hr IVPB Q60M [facility] Stop: 09/06/18 13:44 Levetiracetam (Keppra Injection -) 500 mg IVPB BID [facility] Last Admin: 09/06/18 06:19 Dose: 500 mg Mupirocin (Bactroban Ointment (For Decolonization) -) 1 applic NS BID [facility] Stop: 09/11/18 09:59 Pantoprazole Sodium (Protonix Iv) 40 mg IVPUSH DAILY [facility] Last Admin: 09/06/18 09:49 Dose: 40 mg - Objective Vital Signs: Vital Signs Temperature 97.1 F L 09/06/18 10:00 Pulse Rate 85 09/06/18 10:00 Respiratory Rate 12 09/06/18 11:05 Blood Pressure 97/63 09/06/18 10:00 O2 Sat by Pulse Oximetry (%) 98 09/06/18 09:00 Cardiovascular: Yes: S1, S2 Respiratory: Yes: Mechanically Ventilated Gastrointestinal: Yes: Normal Bowel Sounds, Soft Neurological: Yes: Unresponsive Labs: CBC, BMP 12/05/18 05:15 09/06/18 05:15 INR, PTT INR 1.40 (0.83-1.09) H 09/06/18 05:15 Fibrinogen 238.0 mg/dL (238-498) 09/06/18 02:08 Problem List - Problems (1) Neoplasm of brain causing mass effect on adjacent structures Assessment/Plan: Events noted Continue with decadron for tranfer to [facility] neuro Code(s): D49.6 - NEOPLASM OF UNSPECIFIED BEHAVIOR OF BRAIN (2) Elevated troponin Assessment/Plan: Monitor trends cardio Code(s): R74.8 - ABNORMAL LEVELS OF OTHER SERUM ENZYMES (3) Septic shock Assessment/Plan: -must r/o sepsis vs central fever -cultures abx per id Code(s): A41.9 - SEPSIS, UNSPECIFIED ORGANISM; R65.21 - SEVERE SEPSIS WITH SEPTIC SHOCK
--- NOTE | 2018-09-06 12:55 | PN ---
Teaching Attending Note Name of Resident: Naomi Manuel ATTENDING PHYSICIAN STATEMENT I saw and evaluated the patient. I reviewed the resident's note and discussed the case with the resident. I agree with the resident's findings and plan as documented. SUBJECTIVE: Pt seen and examined in the ICU. Remains intubated, unresponsive off sedation. On levophed gtt. OBJECTIVE: Vital Signs Period Temp Pulse Resp BP Sys/Fried Pulse Ox Last 24 Hr 97.1 F-106.1 F 85-156 12-156 66-124/46-80 95-100 Intake & Output 09/03/18 09/04/18 09/05/18 09/06/18 23:59 23:59 23:59 23:59 Intake Total 200 Output Total 400 Balance -200 Weight 69.127 kg 60.237 kg Gen: intubated, unresponsive Neck: supple Heart: RRR Lung: decreased breath sounds at the bases Abd: soft, nontender Ext: no edema CBC, BMP 09/06/18 05:15 09/06/18 05:15 Active Medications Albuterol/Ipratropium (Duoneb -) 1 amp NEB RQID GARRISON Last Admin: 09/06/18 12:00 Dose: 1 amp Chlorhexidine Gluconate (Hibiclens For Decolonization -) 1 applic TP HS GARRISON Dexamethasone Sodium Phosphate (Decadron Injection -) 6 mg IVPUSH Q6H-IV GARRISON Last Admin: 09/06/18 09:35 Dose: 6 mg Midazolam HCl 100 mg/ Sodium (Chloride) 100 mls @ 1 mls/hr IVPB TITR [facility]ARRISON; Protocol Last Titration: 09/06/18 07:00 Dose: 0 mg/hr, 0 mls/hr Norepinephrine Bitartrate 8, (000 mcg/ Dextrose) 500 mls @ 18.75 mls/hr IV TITR GARRISON; Protocol Last Titration: 09/06/18 09:00 Dose: 10 mcg/min, 37.5 mls/hr Lactated Ringer's (Lactated Ringers Solution) 1,000 ml in 1,000 mls @ 125 mls/ hr IV ASDIR GARRISON Last Admin: 09/06/18 04:00 Dose: 125 mls/hr Cefepime HCl 1 gm/ Dextrose 100 mls @ 100 mls/hr IVPB DAILY [facility]ISON; Protocol Potassium Chloride (Potassium Chloride 10 Meq Premix Ivpb -) 10 meq in 100 mls @ 100 mls/hr IVPB Q60M [facility] Stop: 09/06/18 13:44 Levetiracetam (Keppra Injection -) 500 mg IVPB BID [facility] Last Admin: 09/06/18 06:19 Dose: 500 mg Mupirocin (Bactroban Ointment (For Decolonization) -) 1 applic NS BID [facility] Stop: 09/11/18 09:59 Pantoprazole Sodium (Protonix Iv) 40 mg IVPUSH DAILY [facility] Last Admin: 09/06/18 09:49 Dose: 40 mg ASSESSMENT AND PLAN: Multiple Brain Masses with midline shift Acute Hypoxic Respiratory Failure Shock - Septic vs Neurogenic Acute Kidney Injury Lactic Acidosis +Troponins likely Demand Ischemia - empiric antibiotics - f/u cultures - IVF - check CVP, keep 8-12 - titrate pressors to maintain MAP >65 - continue decadron, empiric antiepileptics - EEG - replete lytes - minimize sedation to assess mental status - DVT/GI prophylaxis - transfer to tertiary medical center per neurosurgery recommendations critical care time spent in reviewing chart, evaluating patient and formulating plan 35 min
--- NOTE | 2018-09-06 13:00 | EKG ---
Test Reason : Blood Pressure : / mmHG Vent. Rate : 117 BPM Atrial Rate : 117 BPM P-R Int : 124 ms QRS Dur : 060 ms QT Int : 316 ms P-R-T Axes : 075 074 066 degrees QTc Int : 440 ms SINUS TACHYCARDIA NONSPECIFIC ST ABNORMALITY ABNORMAL ECG WHEN COMPARED WITH ECG OF 08-JUL-2016 14:57, VENT. RATE HAS INCREASED BY 46 BPM Confirmed by DALILA PENA MD ([id number]) on 09/06/2018 12:59:58 PM Referred By: Confirmed By:DALILA PENA MD
[2018-09-06] MEDS: MUPIROCIN 2% TOPICAL OINTMENT FOR DECOLONIZATION NS SCH ×2 (13:33→21:37)
[2018-09-06] MEDS: KCL 10 MEQ IVPB 10 MEQ/100 ML INFUS.BAG IVPB SCH ×3 (13:46→15:03)
--- NOTE | 2018-09-06 13:58 | CONSULT ---
Consult Consult Specialty:: Nephrology Reason for Consultation:: CROW - History of Present Illness Chief Complaint: sent in from [place] for unresponsiveness History of Present Illness: Pt is a 78 year old female with pmhx of HTN, HLD, parkinsons and dementia who was sent in from the [place] for unresponsiveness. Pt was also hypotensive and had a fever of 106.2. She was intubated and admitted to the ICU. She was found to have brain masses with midline shift. I was called to evaluate her for renal failure. She was also hypotensive and required pressors. She is lethargic and unable to give history. 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 History of Recent Travel: No Home Medications - Allergies Allergies/Adverse Reactions: Allergies Allergy/AdvReac Type Severity Reaction Status Date / Time bee pollen Allergy Verified 09/05/18 22:39 - Home Medications Home Medications: Ambulatory Orders Calcium Carbonate [Oyster Shell Calcium] 500 mg PO DAILY 07/08/16 Gabapentin 300 mg PO TID 07/08/16 Pramipexole Di-HCl [Mirapex] 0.125 mg PO DAILY 07/08/16 Ranitidine [Zantac -] 150 mg PO DAILY 07/08/16 Simvastatin 20 mg PO DAILY 07/08/16 Albuterol 2.5/Ipratropium 0.5 [Duoneb -] 3 ml IH QID 09/06/18 Heparin - 5,000 unit SQ BID 09/06/18 Polyvinyl Alcohol [Artificial Tears] 1 drop OD DAILY 09/06/18 Family Disease History - Family Disease History Family History: Unable to Obtain Review of Systems Unable to obtain ROS, reason: intubated, lethargic Physical Exam Vital Signs: Vital Signs Temperature 97.1 F L 09/06/18 10:00 Pulse Rate 76 09/06/18 12:00 Respiratory Rate 12 09/06/18 12:00 Blood Pressure 126/74 09/06/18 12:00 O2 Sat by Pulse Oximetry (%) 98 09/06/18 09:00 Constitutional: Yes: Calm, Moderate Distress HENT: Yes: Atraumatic Cardiovascular: Yes: S1, S2 Respiratory: Yes: Mechanically Ventilated Gastrointestinal: Yes: Soft Renal/: Yes: [place] Present Musculoskeletal: Yes: Muscle Weakness Edema: No Neurological: Yes: Lethargy Labs: CBC, BMP 09/06/18 05:15 09/06/18 05:15 Laboratory Tests 09/05/18 09/05/18 09/05/18 22:45 23:02 23:02 WBC 20.5 H Sodium 153 H Potassium Chloride BUN Creatinine 3.6 H Lactic Acid 6.7 H* Troponin I 09/06/18 09/06/18 09/06/18 02:08 02:08 05:15 WBC 16.3 H Sodium Potassium Chloride BUN Creatinine Lactic Acid 3.2 H* Troponin I 3.41 H* 09/06/18 09/06/18 05:15 05:15 WBC Sodium 147 H Potassium 3.1 L Chloride 114 H BUN 65 H Creatinine 2.7 H Lactic Acid 2.1 H Troponin I 3.82 H* Imaging - Results Chest X-ray: Report Reviewed Cat Scan: Report Reviewed Assessment/Plan Current Medications Generic Name Dose Route Start Last Admin Trade Name Freq PRN Reason Stop Dose Admin Albuterol/Ipratropium 1 amp 09/06/18 12:00 09/06/18 12:00 Duoneb - NEB 1 amp RQID GARRISON Administration Chlorhexidine Gluconate 1 applic 09/06/18 22:00 Hibiclens For Decolonization - TP HS GARRISON Dexamethasone Sodium Phosphate 6 mg 09/06/18 09:00 09/06/18 09:35 Decadron Injection - IVPUSH 6 mg Q6H-IV GARRISON Administration Midazolam HCl 100 mg/ Sodium 100 mls @ 1 mls/hr 09/05/18 23:00 09/06/18 07:00 Chloride IVPB 0 mg/hr TITR GARRISON 0 mls/hr Titration Protocol 1 MG/HR Norepinephrine Bitartrate 8, 500 mls @ 18.75 mls/hr 09/05/18 23:45 09/06/18 09:00 000 mcg/ Dextrose IV 10 mcg/min TITR GARRISON 37.5 mls/hr Titration Protocol 5 MCG/MIN Lactated Ringer's 1,000 ml in 1,000 mls @ 125 mls/hr 09/06/18 01:45 09/06/18 04:00 Lactated Ringers Solution IV 125 mls/hr ASDIR GARRISON Administration Cefepime HCl 1 gm/ Dextrose 100 mls @ 100 mls/hr 09/06/18 10:00 IVPB DAILY GARRISON Protocol Levetiracetam 500 mg 09/06/18 06:15 09/06/18 06:19 Keppra Injection - IVPB 500 mg BID GARRISON Administration Mupirocin 1 applic 09/06/18 10:00 09/06/18 13:33 Bactroban Ointment (For Decolonization) - NS 09/11/18 09:59 1 applic BID GARRISON Administration Pantoprazole Sodium 40 mg 09/06/18 10:00 09/06/18 09:49 Protonix Iv IVPUSH 40 mg DAILY GARRISON Administration Impression 1. CROW 2. shock 3. hypotension 4. acute resp failure 5. brain masses with midline shift 6. lactic acidosis 7. positive troponins 8. hypernatremia 9. hypokalemia Plan - renal function is improving - crow likely from hypotension and shock, likely has atn - cont fluids - sodium is improving - replace potassium - monitor urine output - cont pressors - vent support - pt is being transferred to a [facility] - discussed with ICU team - lactic acid is improving
[2018-09-06] MEDS ORDERED: PT OWN MED DRAWER 7, Y5N ONE (15:00)
--- NOTE | 2018-09-06 15:09 | ECHO ---
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: PHILLIP AMBER Exam:Adult Echocardiogram Study Date: 09/06/2018 12:05 PM Age: 78 yrs Reason For Study: sepsis assess heart fxn to guide resus Doppler Measurements & Calculations MV E max daniel: 53.4 cm/sec Ao V2 max: 127.9 cm/sec MV A max daniel: 78.1 cm/sec Ao max P.5 mmHg MV E/A: 0.68 AI P1/2t: 476.6 msec MV dec time: 0.17 sec AI max daniel: 320.4 cm/sec LV V1 max P.6 mmHg AI max P.5 mmHg LV V1 max: 94.6 cm/sec AI dec slope: 196.9 cm/sec2 PA V2 max: 88.1 cm/sec Med Peak E' Daniel: 4.9 cm/sec PA max P.1 mmHg Med E/e': 10.9 Lat Peak E' Daniel: 7.9 cm/sec Lat E/e': 6.7 Procedure The study was technically difficult with many images being suboptimal in quality. Left Ventricle The left ventricle is not well visualized. The left ventricle is grossly normal size. The left ventri cular ejection fraction is normal. Regional wall motion abnormalities cannot be excluded due to limited visualization. Atria The left atrium is not well visualized. Right atrium not well visualized. Mitral Valve The mitral valve is not well visualized. Tricuspid Valve The tricuspid valve is not well visualized. There is Trace to mild tricuspid regurgitation. Right pauline tricular systolic pressure is normal. Aortic Valve The aortic valve is not well visualized. Mild to moderate aortic regurgitation. Pulmonic Valve The pulmonic valve is not well visualized. Great Vessels The aortic root is not well visualized. Interpretation Summary The study was technically difficult with many images being suboptimal in quality. The left ventricle is not well visualized. The left ventricle is grossly normal size. The left ventricular ejection fraction is normal. Regional wall motion abnormalities cannot be excluded due to limited visualization. The tricuspid valve is not well visualized. The pulmonic valve is not well visualized. The aortic valve is not well visualized. Mild to moderate aortic regurgitation. The mitral valve is not well visualized. The left atrium is not well visualized. Right atrium not well visualized. There is Trace to mild tricuspid regurgitation. Right ventricular systolic pressure is normal. MD Vladimir Reece 09/06/2018 03:08 PM
--- NOTE | 2018-09-06 15:40 | CON.CARD ---
Consult Consult Specialty:: Cardiology Referred by:: Dr. Espinal Reason for Consultation:: elevated troponin - History of Present Illness Chief Complaint: sent from [place] for fever, ams History of Present Illness: 78 year old woman with pmh htn, hld, dementia, parkinsons admitted from [place] with unresponsiveness, fever of 106.2, 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 requiring intubation and mechanical ventilation. JULIANA, elevated lactate, found to have multiple brain masses with edema, midline shift and some hemorrhage and incidentally noted to have an elevated troponin with relatively normal CK. no report of chest pain or sob from [place] pt seen and examined, intubated not on sedation but unresponsive. pt is being transferred to [facility] for neurosurgical evaluation. 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 Cardio/Vascular: Yes: HTN, Hyperlipdemia Gastrointestinal: Yes: GERD Musculoskeletal: Yes: Other (neuropathy, RLS) Rheumatology: Yes: Other (osteoarthritis) - Past Surgical History Additional Surgical History: prior brain surgery 2012- details unknown - Alcohol/Substance Use Hx Alcohol Use: No - Smoking History Smoking history: Never smoked Have you smoked in the past 12 months: No - Social History Usual Living Arrangement: Residential ADL: Support Services 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 History of Recent Travel: No Home Medications - Allergies Allergies/Adverse Reactions: Allergies Allergy/AdvReac Type Severity Reaction Status Date / Time bee pollen Allergy Verified 09/05/18 22:39 - Home Medications Home Medications: Ambulatory Orders Calcium Carbonate [Oyster Shell Calcium] 500 mg PO DAILY 07/08/16 Gabapentin 300 mg PO TID 07/08/16 Pramipexole Di-HCl [Mirapex] 0.125 mg PO DAILY 07/08/16 Ranitidine [Zantac -] 150 mg PO DAILY 07/08/16 Simvastatin 20 mg PO DAILY 07/08/16 Albuterol 2.5/Ipratropium 0.5 [Duoneb -] 3 ml IH QID 09/06/18 Heparin - 5,000 unit SQ BID 09/06/18 Polyvinyl Alcohol [Artificial Tears] 1 drop OD DAILY 09/06/18 Family Disease History - Family Disease History Family History: Denies Review of Systems - Review of Systems Constitutional: reports: Fever, Lethargy. denies: No Symptoms, Chills, Diaphoresis, Loss of Appetite, Malaise, Night Sweats, Unintentional Wgt. Loss, Weakness, Other Eyes: denies: No Symptoms, Blind Spots, Blurred Vision, Double Vision, Eye Pain , Floaters, Photophobia, Recent Change in Vision, Other HENT: denies: No Symptoms, Difficult Swallowing, Ear Discharge, Ear Pain, Epistaxis, Gingival Bleeding, Hearing Loss, Mouth Swelling, Nasal Congestion, Ocular Prosthesis, Throat Pain, Toothache, Ringing in Ears, Other Neck: denies: No Symptoms, Decreased ROM, Lumps, Pain on Movement, Stiffness, Swollen Glands, Tenderness, Other Cardiovascular: denies: No Symptoms, Chest Pain, Edema, Palpitations, Shortness of Breath, Other Respiratory: denies: No Symptoms, Cough, Exercise Intolerance, Hemoptysis, Orthopnea, PND, Snoring, SOB, SOB on Exertion, Wheezing, Other Gastrointestinal: denies: No Symptoms, Abdominal Pain, Bloating, Constipation, Diarrhea, Dysphagia, Indigestion, Melena, Nausea, Rectal Bleeding, Vomiting, Vomiting Blood, Other Genitourinary: denies: No Symptoms, Burning, Discharge, Dysuria, Flank Pain, Frequency, Hematuria, Incontinence, Lesions, Menses, Pain, Testicular Mass, Testicular Pain, Testicular Swelling, Urgency, Vaginal Bleeding, Other Breasts: denies: No Symptoms Reported, See HPI, Breast Implants, Discharge from Nipple, Lumps, Pain, Skin Changes, Other Musculoskeletal: denies: No Symptoms, Back Pain, Crepitus, Decreased ROM, Extremity Pain, Joint Pain, Joint Swelling, Muscle Pain, Muscle Cramps, Muscle Weakness, Other Integumentary: denies: No Symptoms, Blister, Bruising, Change in Color, Eczema, Erythema, Incision, Lesions, Lump, Pallor, Pruritis, Rash, Wound, Other Neurological: reports: Change in LOC, Confusion, Weakness. denies: No Symptoms , Change in Speech, Dizziness, Headache, Incoordination, Numbness, Parasthesia, Pre-Existing Deficit, Seizure, Syncope, Tremors, Unsteady Gait, Other Endocrine: denies: No Symptoms, Excessive Sweating, Flushing, Increased Hunger, Increased Thirst, Intolerance to Cold, Intolerance to Heat, Unexplained Weight Gain, Unexplained Weight Loss, Other Hematology/Lymphatic: denies: No Symptoms, Easily Bruised, Excessive Bleeding, Swollen Glands, Other Psychiatric: denies: No Symptoms, Altered Sleep Pattern, Anxiety, Depression, Hallucinations, Panic, Paranoia, Suicidal, Other Vital Signs: Vital Signs Temperature 96.7 F L 09/06/18 14:00 Pulse Rate 82 09/06/18 14:00 Respiratory Rate 12 09/06/18 14:08 Blood Pressure 124/75 09/06/18 14:00 O2 Sat by Pulse Oximetry (%) 98 09/06/18 09:00 Constitutional: Yes: No Distress HENT: Yes: Atraumatic Respiratory: Yes: Regular, Intubated, Mechanically Ventilated. No: Rales, Rhonchi, SOB, Wheezes Gastrointestinal: Yes: Normal Bowel Sounds Cardiovascular: Yes: Regular Rate and Rhythm. No: Bradycardia, Tachycardia, Pulse Irregular, Gallop, Rub, Varicosities JVD: No Carotid Bruit: No PMI: Non-Displaced Heart Sounds: Yes: S1, S2. No: Split S2, S3, S4, Clicks, Gallop, Rub, Bruit Murmur: No: Systolic Murmur, Diastolic Murmur Edema: No Neurological: Yes: Unresponsive. No: Alert, Oriented Psychiatric: No: Alert, Oriented - Other Data Labs, Other Data: CBC, BMP 09/06/18 05:15 09/06/18 05:15 INR, PTT INR 1.40 (0.83-1.09) H 09/06/18 05:15 Fibrinogen 238.0 mg/dL (238-498) 09/06/18 02:08 Troponin, BNP 09/05/18 09/06/18 09/06/18 23:02 02:08 05:15 Troponin I 2.59 H* 3.41 H* 3.82 H* 09/06/18 13:25 Troponin I 1.65 H* Troponin, BNP 09/05/18 09/06/18 09/06/18 23:02 02:08 05:15 Troponin I 2.59 H* 3.41 H* 3.82 H* 09/06/18 13:25 Troponin I 1.65 H* ekg sinus tach 117bpm no sig st abnl Echo: Report Reviewed Imaging - Results Chest X-ray: Report Reviewed, Image Reviewed EKG: Report Reviewed, Image Reviewed Other: Report Reviewed, Image Reviewed (tele-nsr, sinus tach, sinus arrhythmia, brief episodes psvt) Assessment/Plan 78 year old woman with pmh htn, hld, dementia, parkinsons admitted from [place] with unresponsiveness, fever of 106.2, 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 requiring intubation and mechanical ventilation. JULIANA, elevated lactate, found to have multiple brain masses with edema, midline shift and some hemorrhage and incidentally noted to have an elevated troponin with relatively normal CK. 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
[2018-09-06] MEDS ORDERED: PIPERACILLIN/TAZOB 2.25 GM 2.25 GM in DEXTROSE 5%-WATER - 50 ML IVPB SCH (18:00)
[2018-09-06 19:02] LABS: URINE APPEARANCE CLOUDY; URINE BILIRUBIN NEGATIVE (<2.0 mg/dL); URINE COLOR LTYELLOW; URINE GLUCOSE (UA) 1+ (NEGATIVE); URINE KETONE NEGATIVE (NEGATIVE); URINE LEUK ESTERASE NEGATIVE (NEGATIVE); URINE NITRITE NEGATIVE (NEGATIVE); URINE PROTEIN NEGATIVE (NEGATIVE); URINE UROBILINOGEN NEGATIVE mg/dL (0.2-1.0)
[2018-09-06 19:15] LABS: EPI CELLS RARE /HPF (FEW); URINE MUCUS RARE
[2018-09-06] MEDS: CHLORHEXIDINE GLUCONATE 4% CLEANSER FOR DECOLONIZATION TP SCH (21:37)
[2018-09-06] MEDS: MIDAZOLAM 100 MG in SODIUM CHLORIDE 100 ML IVPB SCH (23:09)
[2018-09-07] MEDS: DEXAMETHASONE SOD PHOSPHATE 10 MG/1 ML VIAL IVPUSH SCH ×4 (02:15→21:18)
[2018-09-07 06:14] LABS: BASO % 0.2 % (0-2.0); HEMATOCRIT 32.2 % (32.4-45.2); HEMOGLOBIN 10.2 GM/dL (10.7-15.3); LYMPH % 7.3 % (8-40); MCH 29.2 pg (25.7-33.7); MCHC 31.6 g/dl (32.0-36.0); MEAN CELL VOLUME 92.2 fl (80-96); MEAN PLT VOLUME 8.9 fl (7.5-11.1); MONO % 2.3 % (3.8-10.2); NEUT % 90.2 % (42.8-82.8); PLATELET COUNT 268 K/MM3 (134-434); RBC 3.49 M/mm3 (3.60-5.2); RDW 12.8 % (11.6-15.6); WHITE BLOOD COUNT 18.8 K/mm3 (4.0-10.0)
[2018-09-07] MEDS: NOREPINEPHRINE BITARTRATE 8,000 MCG in DEXTROSE 5%-WATER - 492 ML IV SCH ×2 (06:46→23:58)
[2018-09-07] MEDS: LACTATED RINGERS SOLUTION 1,000 ML/1,000 ML INFUS.BAG IV SCH (06:47)
--- NOTE | 2018-09-07 07:39 | PN ---
Physical Exam: SUBJECTIVE: Patient seen and examined at bedside. No acute events overnight. Pt now opening eyes. Grimaces to pain. OBJECTIVE: Vital Signs Period Temp Pulse Resp BP Sys/Fried Pulse Ox Last 24 Hr 96.7 F-99.0 F 67-89 12-17 92-129/62-80 98-98 GENERAL: Intubated. NAD. HEENT: AT/NC. LEIGHA. Opens eyes spontaneously. Dry mucus membranes. NECK: Supple. LUNGS: CTA B/L. No wheezes noted. HEART: RRR. Normal S1, S2. ABDOMEN: Soft, NT/ND. Normoactive BS in all 4Qs. EXTREMITIES: 2+ pulses, warm, well-perfused, no edema. NEUROLOGICAL: Grimaces to pain. SKIN: Warm, dry. CBCD WBC 18.8 K/mm3 (4.0-10.0) H 09/07/18 05:30 RBC 3.49 M/mm3 (3.60-5.2) L 09/07/18 05:30 Hgb 10.2 GM/dL (10.7-15.3) L 09/07/18 05:30 Hct 32.2 % (32.4-45.2) L 09/07/18 05:30 MCV 92.2 fl (80-96) 09/07/18 05:30 MCHC 31.6 g/dl (32.0-36.0) L 09/07/18 05:30 RDW 12.8 % (11.6-15.6) 09/07/18 05:30 Plt Count 268 K/MM3 (134-434) 09/07/18 05:30 MPV 8.9 fl (7.5-11.1) 09/07/18 05:30 CMP Sodium 147 mmol/L (136-145) H 09/06/18 05:15 Potassium 3.1 mmol/L (3.5-5.1) L 09/06/18 05:15 Chloride 114 mmol/L (98-107) H 09/06/18 05:15 Carbon Dioxide 21 mmol/L (21-32) 09/06/18 05:15 Anion Gap 11 MMOL/L (8-16) 09/06/18 05:15 BUN 65 mg/dL (7-18) H 09/06/18 05:15 Creatinine 2.7 mg/dL (0.55-1.3) H 09/06/18 05:15 Creat Clearance w eGFR 17.13 (>60) 09/06/18 05:15 Calcium 9.1 mg/dL (8.5-10.1) 09/06/18 05:15 Total Bilirubin 1.8 mg/dL (0.2-1) H 09/06/18 05:15 AST 37 U/L (15-37) 09/06/18 05:15 ALT 24 U/L (13-61) 09/06/18 05:15 Alkaline Phosphatase 58 U/L (45-117) 09/06/18 05:15 Total Protein 5.8 g/dl (6.4-8.2) L 09/06/18 05:15 Albumin 2.7 g/dl (3.4-5.0) L 09/06/18 05:15 Active Medications Albuterol/Ipratropium (Duoneb -) 1 amp NEB RQID GARRISON Last Admin: 09/06/18 20:17 Dose: 1 amp Chlorhexidine Gluconate (Hibiclens For Decolonization -) 1 applic TP HS GARRISON Last Admin: 09/06/18 21:37 Dose: 1 applic Dexamethasone Sodium Phosphate (Decadron Injection -) 6 mg IVPUSH Q6H-IV GARRISON Last Admin: 09/07/18 02:15 Dose: 6 mg Midazolam HCl 100 mg/ Sodium (Chloride) 100 mls @ 1 mls/hr IVPB TITR GARRISON; Protocol Last Admin: 09/06/18 23:09 Dose: Not Given Norepinephrine Bitartrate 8, (000 mcg/ Dextrose) 500 mls @ 18.75 mls/hr IV TITR GARRISON; Protocol Last Admin: 09/07/18 06:46 Dose: Not Given Lactated Ringer's (Lactated Ringers Solution) 1,000 ml in 1,000 mls @ 125 mls/ hr IV ASDIR GARRISON Last Admin: 09/07/18 06:47 Dose: Not Given Metronidazole (Flagyl 500mg Premixed Ivpb -) 500 mg in 100 mls @ 100 mls/hr IVPB TID GARRISON Last Admin: 09/07/18 07:00 Dose: 100 mls/hr Cefepime HCl 2 gm/ Dextrose 100 mls @ 100 mls/hr IVPB DAILY GARRISON; Protocol Levetiracetam (Keppra Injection -) 500 mg IVPB BID COUNT INCLUDES THE [facility] Last Admin: 09/06/18 21:37 Dose: 500 mg Mupirocin (Bactroban Ointment (For Decolonization) -) 1 applic NS BID COUNT INCLUDES THE [facility] Stop: 09/11/18 09:59 Last Admin: 09/06/18 21:37 Dose: 1 applic Pantoprazole Sodium (Protonix Iv) 40 mg IVPUSH DAILY COUNT INCLUDES THE [facility] Last Admin: 09/06/18 09:49 Dose: 40 mg ASSESSMENT/PLAN: 78yo woman with septic shock with unknown source of infection 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, MODS, HAGMA, severe lactic acidosis. Hypernatremia likely from dehydration. Renal failure may be secondary to sepsis vs prerenal. Neurology #Multiple brain lesions, edema, midline shift found on head CT -Decadron 6 mg Q6H -Keppra 500 BID -monitor CVP, maintain at 8-12 -Pt came in with fever of 106.9 rectally, there is a possibility this may be central vs. infectious etiology due to significant multiple lesion w/ midline shift on head CT -09/06: Neurosurg consulted, recommended to transfer to [facility]. Per night resident, report was given to [facility] neurosurg resident as well as ICU attending. Awaiting callback for accepting physician and available bed at [facility]. -09/07: Contacted [facility] again. Still awaiting bed. #Alzheimer's Dementia -hold home meds Pulmonary #Acute Respiratory Failure 2/2 ? septic shock -Intubated. 12/400/60%/5 -CT chest showed honeycombing and cystic changes w/ pleural thickening and small calcifications on R lung apex. Bibasal atelectatic changes w/ mild pleural thickening and trace b/l pleural effusion; cannot r/o superimposed infiltrates. No evid of SBO. Cardiology #Shock 2/2 sepsis vs. neurogenic -cont IVf -IV pressors, maintain MAP >65 #Elevated troponins, likely 2/2 demand ischemia -2.49>3.41>3.82> 1.37 -EKG showed sinus tachycardia, no evidence of ST-T changes or acute ischemic changes -Per cardio: echo tds but showed grossly normal LV systolic function with no significant valvular abnormalities; unlikely ACS #HTN -Currently hypotensive 2/2 septic shock -On Levophed 10 #HLD -hold home meds for now GI #GERD -Protonix 40 QD #Hyperbilirubinemia -CTAP showed unremarkable spleen/liver. GB overdistended w/ tiny stones layering at fundus. Pancreas and adrenal glands both unremarkable. Renal #CROW, likely 2/2 dehydration -no evidence of hydronephrosis -IVf -recheck CMP #Hypernatremia -LR @ 125 -recheck CMP #Hypokalemia -KCl 10 mEq x3 bags -replete PRN -recheck K+ ID #Septic Shock 2/2 unknown etiology -Vancomycin and Zosyn given -Per ID, add Cefepime -106.9 rectal temp; may be due to central process, but need to r/o infection first -f/u BCx, UCx -CXR showed b/l apical pleural thickening, chronic post-inflammatory changes noted in R apex w/ peribronchial thickening, cystic changes. #Lactic acidosis -6.7 > 3.2 > 2.1 -IVf given Hematology #Coagulopathy; elevated INR -2U FFP ordered Prophylaxis GI- Protonix 40 IVP QD DVT- SCDs; hold chemical ppx due to elevated INR FEN -LR @ 125 -recheck lytes in AM -NPO dispo -Spoke to Santos at [facility] regarding status pt transfer. Pt has been accepted to the ICU under Dr. Cueto, however, waiting for available bed. Awaiting call back. -Unable to contact family at this time. Multiple attempts to contact daughter Visit type - Emergency Visit Emergency Visit: Yes ED Registration Date: 09/06/18 Care time: The patient presented to the Emergency Department on the above date and was hospitalized for further evaluation of their emergent condition. - New Patient This patient is new to me today: No - Critical Care Critical Care patient: Yes Total Critical Care Time (in minutes): 36 Critical Care Statement: The care of this patient involved high complexity decision making to prevent further life threatening deterioration of the patient 's condition and/or to evaluate & treat vital organ system(s) failure or risk of failure.
[2018-09-07] MEDS: ALBUTEROL SO4 2.5/IPRATROPIUM 0.5 INH SOL 3 ML VIAL.NEB. NEB SCH ×4 (08:00→20:46)
[2018-09-07 08:04] LABS: BASO % 0.2 % (0-2.0); HEMATOCRIT 34.7 % (32.4-45.2); HEMOGLOBIN 10.7 GM/dL (10.7-15.3); LYMPH % 6.2 % (8-40); MCH 28.7 pg (25.7-33.7); MCHC 30.8 g/dl (32.0-36.0); MEAN CELL VOLUME 93.2 fl (80-96); MEAN PLT VOLUME 8.9 fl (7.5-11.1); MONO % 3.1 % (3.8-10.2); NEUT % 90.5 % (42.8-82.8); PLATELET COUNT 257 K/MM3 (134-434); RBC 3.72 M/mm3 (3.60-5.2); RDW 13.3 % (11.6-15.6); WHITE BLOOD COUNT 18.8 K/mm3 (4.0-10.0)
[2018-09-07 08:30] LABS: ALBUMIN 2.6 g/dl (3.4-5.0); ALK PHOS 63 U/L (45-117); ANION GAP 7 MMOL/L (8-16); BILIRUBIN,TOTAL 0.8 mg/dL (0.2-1); BLOOD UREA NITROGEN 36 mg/dL (7-18); CALCIUM 10.4 mg/dL (8.5-10.1); CHLORIDE 114 mmol/L (98-107); CO2 26 mmol/L (21-32); GLUCOSE,RANDOM 170 mg/dL (74-106); MAGNESIUM 1.9 mg/dL (1.8-2.4); PHOSPHOROUS 2.7 mg/dL (2.5-4.9); POTASSIUM 3.7 mmol/L (3.5-5.1); SGOT/AST 27 U/L (15-37); SGPT/ALT 27 U/L (13-61); SODIUM 147 mmol/L (136-145); TOT PROT 5.9 g/dl (6.4-8.2)
[2018-09-07] MEDS: levETIRAcetam 500 MG/5 ML INJECTION VIAL IVPB SCH ×2 (09:27→21:19)
[2018-09-07] MEDS: PANTOPRAZOLE SODIUM 40 MG VIAL IVPUSH SCH (09:27)
[2018-09-07] MEDS: MUPIROCIN 2% TOPICAL OINTMENT FOR DECOLONIZATION NS SCH ×2 (09:28→21:19)
[2018-09-07] MEDS ORDERED: CEFEPIME 2 GM in DEXTROSE 5%-WATER 100 ML IVPB SCH ×2 (10:00→16:45)
[2018-09-07 10:18] LABS: ARTERIAL BLD GAS O2 SATURATION 99.2 % (90-98.9); ARTERIAL BLOOD GAS BASE EXCESS -0.6 meq/l (-2-2); ARTERIAL BLOOD GAS PCO2 33.2 mmHg (35-45); ARTERIAL BLOOD GAS pH 7.45 (7.35-7.45)
--- NOTE | 2018-09-07 11:11 | PN ---
Progress Note, Physician Chief Complaint: patient seen and examined in icu awaiting bed at [facility] has been accepted by critical care doctor over there intubated on levophed - Current Medication List Current Medications: Active Medications Albuterol/Ipratropium (Duoneb -) 1 amp NEB RQID [facility] Last Admin: 09/07/18 08:00 Dose: 1 amp Chlorhexidine Gluconate (Hibiclens For Decolonization -) 1 applic TP HS [facility] Last Admin: 09/06/18 21:37 Dose: 1 applic Dexamethasone Sodium Phosphate (Decadron Injection -) 6 mg IVPUSH Q6H-IV [facility] Last Admin: 09/07/18 09:28 Dose: 6 mg Midazolam HCl 100 mg/ Sodium (Chloride) 100 mls @ 1 mls/hr IVPB TITR [facility]; Protocol Last Admin: 09/06/18 23:09 Dose: Not Given Norepinephrine Bitartrate 8, (000 mcg/ Dextrose) 500 mls @ 18.75 mls/hr IV TITR [facility]; Protocol Last Admin: 09/07/18 06:46 Dose: Not Given Lactated Ringer's (Lactated Ringers Solution) 1,000 ml in 1,000 mls @ 125 mls/ hr IV ASDIR [facility] Last Admin: 09/07/18 06:47 Dose: Not Given Metronidazole (Flagyl 500mg Premixed Ivpb -) 500 mg in 100 mls @ 100 mls/hr IVPB TID [facility] Last Admin: 09/07/18 07:00 Dose: 100 mls/hr Cefepime HCl 2 gm/ Dextrose 100 mls @ 100 mls/hr IVPB DAILY [facility]; Protocol Last Admin: 09/07/18 09:27 Dose: 100 mls/hr Levetiracetam (Keppra Injection -) 500 mg IVPB BID [facility] Last Admin: 09/07/18 09:27 Dose: 500 mg Mupirocin (Bactroban Ointment (For Decolonization) -) 1 applic NS BID [facility] Stop: 09/11/18 09:59 Last Admin: 09/07/18 09:28 Dose: 1 applic Pantoprazole Sodium (Protonix Iv) 40 mg IVPUSH DAILY [facility] Last Admin: 09/07/18 09:27 Dose: 40 mg - Objective Vital Signs: Vital Signs Temperature 98.6 F 09/07/18 10:00 Pulse Rate 73 09/07/18 10:00 Respiratory Rate 12 09/07/18 10:00 Blood Pressure 114/72 09/07/18 10:00 O2 Sat by Pulse Oximetry (%) 100 09/07/18 09:00 Constitutional: Yes: Calm Cardiovascular: Yes: S1, S2 Respiratory: Yes: Mechanically Ventilated Gastrointestinal: Yes: Normal Bowel Sounds, Soft Edema: No Labs: CBC, BMP 09/07/18 07:33 09/07/18 07:33 INR, PTT INR 1.40 (0.83-1.09) H 09/06/18 05:15 Fibrinogen 238.0 mg/dL (238-498) 09/06/18 02:08 Problem List - Problems (1) Hypotension Assessment/Plan: iv pressors cultures no growth cefepime and flagyl acute resp failure s/p intubation CROW- ranl function improved on ivf keep MAP > 65 Microbiology 09/05/18 23:02 Urine - Urine De [place]a Urine Culture - Final NO GROWTH OBTAINED 09/05/18 23:03 Blood - Peripheral Venous Blood Culture - Preliminary NO GROWTH OBTAINED AFTER 24 HOURS, INCUBATION TO CONTINUE FOR 4 DAYS. 09/05/18 22:50 Blood - Peripheral Venous Blood Culture - Preliminary NO GROWTH OBTAINED AFTER 24 HOURS, INCUBATION TO CONTINUE FOR 4 DAYS. Code(s): I95.9 - HYPOTENSION, UNSPECIFIED (2) Neoplasm of brain causing mass effect on adjacent structures Assessment/Plan: keppra and decadron accepted to [facility] at [facility] awaiting bed [facility] consulted- neurology consult ordered ct head noted vasogenic edema Code(s): D49.6 - NEOPLASM OF UNSPECIFIED BEHAVIOR OF BRAIN (3) Elevated troponin Assessment/Plan: troponin trending down,cardiology consulted echo done Code(s): R74.8 - ABNORMAL LEVELS OF OTHER SERUM ENZYMES
--- NOTE | 2018-09-07 12:14 | PN ---
Teaching Attending Note Name of Resident: Naomi Manuel ATTENDING PHYSICIAN STATEMENT I saw and evaluated the patient. I reviewed the resident's note and discussed the case with the resident. I agree with the resident's findings and plan as documented. SUBJECTIVE: Patient seen and examined in the ICU. Remains intubated, AC mode of vent, 40% FiO2. No pressors. Grimaces to noxious stimuli. OBJECTIVE: Intake & Output 09/04/18 09/05/18 09/06/18 09/07/18 23:59 23:59 23:59 23:59 Intake Total 1125 1696 Output Total 1650 400 Balance -525 1296 Weight 152 lb 6.4 oz 132 lb 12.8 oz 133 lb 12.8 oz Last Vital Signs Temp Pulse Resp BP Pulse Ox 98.6 F 73 16 114/72 100 09/07/18 10:00 09/07/18 10:00 09/07/18 11:15 09/07/18 10:00 09/07/18 11:09 Active Medications Albuterol/Ipratropium (Duoneb -) 1 amp NEB RQID [facility] Last Admin: 09/07/18 11:44 Dose: 1 amp Chlorhexidine Gluconate (Hibiclens For Decolonization -) 1 applic TP HS [facility] Last Admin: 09/06/18 21:37 Dose: 1 applic Dexamethasone Sodium Phosphate (Decadron Injection -) 6 mg IVPUSH Q6H-IV [facility] Last Admin: 09/07/18 09:28 Dose: 6 mg Norepinephrine Bitartrate 8, (000 mcg/ Dextrose) 500 mls @ 18.75 mls/hr IV TITR [facility]; Protocol Last Admin: 09/07/18 06:46 Dose: Not Given Lactated Ringer's (Lactated Ringers Solution) 1,000 ml in 1,000 mls @ 125 mls/ hr IV ASDIR [facility] Last Admin: 09/07/18 06:47 Dose: Not Given Metronidazole (Flagyl 500mg Premixed Ivpb -) 500 mg in 100 mls @ 100 mls/hr IVPB TID [facility] Last Admin: 09/07/18 07:00 Dose: 100 mls/hr Cefepime HCl 2 gm/ Dextrose 100 mls @ 100 mls/hr IVPB DAILY [facility]; Protocol Last Admin: 09/07/18 09:27 Dose: 100 mls/hr Levetiracetam (Keppra Injection -) 500 mg IVPB BID [facility] Last Admin: 09/07/18 09:27 Dose: 500 mg Mupirocin (Bactroban Ointment (For Decolonization) -) 1 applic NS BID [facility] Stop: 09/11/18 09:59 Last Admin: 09/07/18 09:28 Dose: 1 applic Pantoprazole Sodium (Protonix Iv) 40 mg IVPUSH DAILY [facility] Last Admin: 09/07/18 09:27 Dose: 40 mg Gen: intubated, grimaces to pain Neck: supple Heart: RRR Lung: decreased breath sounds at the bases Abd: soft, nontender Ext: no edema Laboratory Results - last 24 hr 09/06/18 09/06/18 09/06/18 13:25 17:00 17:00 WBC RBC Hgb Hct MCV MCH MCHC RDW Plt Count MPV Absolute Neuts (auto) Neutrophils % Lymphocytes % Monocytes % Eosinophils % Basophils % Nucleated RBC % Puncture Site ABG pH ABG pCO2 at Pt Temp ABG pO2 at Pt Temp ABG HCO3 ABG O2 Sat (Measured) ABG O2 Content ABG Base Excess Giancarlo Test Oxygen Flow Rate Vent Rate Mechanical Rate PEEP Sodium Potassium Chloride Carbon Dioxide Anion Gap BUN Creatinine Creat Clearance w eGFR Random Glucose Calcium Phosphorus Magnesium Total Bilirubin AST ALT Alkaline Phosphatase Creatine Kinase Creatine Kinase Index CK-MB (CK-2) Troponin I 1.65 H* Total Protein Albumin Urine Color Ltyellow Urine Appearance Cloudy Urine pH 5.0 Ur Specific [place] 1.015 Urine Protein Negative Urine Glucose (UA) 1+ H Urine Ketones Negative Urine Blood 1+ H Urine Nitrite Negative Urine Bilirubin Negative Urine Urobilinogen Negative Ur Leukocyte Esterase Negative Urine WBC (Auto) 3 Urine RBC (Auto) 19 Ur Epithelial Cells Rare Urine Mucus Rare Ur Random Sodium 63 Ur Random Potassium 19.0 L Ur Random Chloride 52 L Urine Creatinine Random Vancomycin 09/06/18 09/06/18 09/07/18 17:00 18:00 05:30 WBC RBC Hgb Hct MCV MCH MCHC RDW Plt Count MPV Absolute Neuts (auto) Neutrophils % Lymphocytes % Monocytes % Eosinophils % Basophils % Nucleated RBC % Puncture Site ABG pH ABG pCO2 at Pt Temp ABG pO2 at Pt Temp ABG HCO3 ABG O2 Sat (Measured) ABG O2 Content ABG Base Excess Giancarlo Test Oxygen Flow Rate Vent Rate Mechanical Rate PEEP Sodium Potassium Chloride Carbon Dioxide Anion Gap BUN Creatinine Creat Clearance w eGFR Random Glucose Calcium Phosphorus Magnesium Total Bilirubin AST ALT Alkaline Phosphatase Creatine Kinase 225 H Creatine Kinase Index 3.2 CK-MB (CK-2) 7.4 H Troponin I 1.37 H* Total Protein Albumin Urine Color Urine Appearance Urine pH Ur Specific [place] Urine Protein Urine Glucose (UA) Urine Ketones Urine Blood Urine Nitrite Urine Bilirubin Urine Urobilinogen Ur Leukocyte Esterase Urine WBC (Auto) Urine RBC (Auto) Ur Epithelial Cells Urine Mucus Ur Random Sodium Ur Random Potassium Ur Random Chloride Urine Creatinine 40.0 Random Vancomycin 9.1 L 09/07/18 09/07/18 09/07/18 05:30 05:30 07:33 WBC 18.8 H 18.8 H RBC 3.49 L 3.72 Hgb 10.2 L 10.7 Hct 32.2 L 34.7 MCV 92.2 93.2 MCH 29.2 28.7 MCHC 31.6 L 30.8 L RDW 12.8 13.3 Plt Count 268 257 MPV 8.9 8.9 Absolute Neuts (auto) 17.0 H 17.0 H Neutrophils % 90.2 H 90.5 H Lymphocytes % 7.3 L D 6.2 L Monocytes % 2.3 L 3.1 L Eosinophils % 0.0 0.0 Basophils % 0.2 0.2 Nucleated RBC % 0 0 Puncture Site ABG pH ABG pCO2 at Pt Temp ABG pO2 at Pt Temp ABG HCO3 ABG O2 Sat (Measured) ABG O2 Content ABG Base Excess Giancarlo Test Oxygen Flow Rate Vent Rate Mechanical Rate PEEP Sodium Cancelled Potassium Cancelled Chloride Cancelled Carbon Dioxide Cancelled Anion Gap Cancelled BUN Cancelled Creatinine Cancelled Creat Clearance w eGFR Cancelled Random Glucose Cancelled Calcium Cancelled Phosphorus Cancelled Magnesium Cancelled Total Bilirubin Cancelled AST Cancelled ALT Cancelled Alkaline Phosphatase Cancelled Creatine Kinase Creatine Kinase Index CK-MB (CK-2) Troponin I Total Protein Cancelled Albumin Cancelled Urine Color Urine Appearance Urine pH Ur Specific [place] Urine Protein Urine Glucose (UA) Urine Ketones Urine Blood Urine Nitrite Urine Bilirubin Urine Urobilinogen Ur Leukocyte Esterase Urine WBC (Auto) Urine RBC (Auto) Ur Epithelial Cells Urine Mucus Ur Random Sodium Ur Random Potassium Ur Random Chloride Urine Creatinine Random Vancomycin 09/07/18 09/07/18 07:33 10:20 WBC RBC Hgb Hct MCV MCH MCHC RDW Plt Count MPV Absolute Neuts (auto) Neutrophils % Lymphocytes % Monocytes % Eosinophils % Basophils % Nucleated RBC % Puncture Site Right brachial ABG pH 7.45 ABG pCO2 at Pt Temp 33.2 L ABG pO2 at Pt Temp 135.0 H ABG HCO3 22.6 ABG O2 Sat (Measured) 99.2 H ABG O2 Content 13.7 L ABG Base Excess -0.6 Giancarlo Test Not applicable Oxygen Flow Rate 40% Vent Rate 12 Mechanical Rate Ac PEEP 5.0 Sodium 147 H Potassium 3.7 Chloride 114 H Carbon Dioxide 26 Anion Gap 7 L BUN 36 H Creatinine 1.0 Creat Clearance w eGFR 53.91 Random Glucose 170 H Calcium 10.4 H Phosphorus 2.7 Magnesium 1.9 Total Bilirubin 0.8 AST 27 ALT 27 Alkaline Phosphatase 63 Creatine Kinase Creatine Kinase Index CK-MB (CK-2) Troponin I Total Protein 5.9 L Albumin 2.6 L Urine Color Urine Appearance Urine pH Ur Specific [place] Urine Protein Urine Glucose (UA) Urine Ketones Urine Blood Urine Nitrite Urine Bilirubin Urine Urobilinogen Ur Leukocyte Esterase Urine WBC (Auto) Urine RBC (Auto) Ur Epithelial Cells Urine Mucus Ur Random Sodium Ur Random Potassium Ur Random Chloride Urine Creatinine Random Vancomycin ASSESSMENT AND PLAN: Multiple Brain Masses with midline shift Acute Hypoxic Respiratory Failure Resolving Shock Acute Kidney Injury Lactic Acidosis +Troponins likely Demand Ischemia - empiric antibiotics: If cultures are negative can stop - IVF - Pressors if needed to maintain MAP >65 - continue decadron, empiric antiepileptics - replete lytes - minimize sedation to assess mental status - DVT/GI prophylaxis - There is a consideration for transfer to tertiary [facility] per neurosurgery recommendations Dr Louie Critical care time spent in reviewing chart, evaluating patient and formulating plan 36 min
--- NOTE | 2018-09-07 14:43 | PN ---
Progress Note (short form) - Note Progress Note: more responsive off pressors on steroids/antibiotics Vital Signs Period Temp Pulse Resp BP Sys/Fried Pulse Ox Last 24 Hr 96.8 F-99.0 F 67-86 12-16 92-129/62-80 98-100 intubated cor-rrr lungs decreased bs at bases abd soft,nt ext no edema CBC, BMP 09/07/18 07:33 09/07/18 07:33 Microbiology 09/05/18 23:02 Urine - Urine De Anda Urine Culture - Final NO GROWTH OBTAINED 09/05/18 23:03 Blood - Peripheral Venous Blood Culture - Preliminary NO GROWTH OBTAINED AFTER 24 HOURS, INCUBATION TO CONTINUE FOR 4 DAYS. 09/05/18 22:50 Blood - Peripheral Venous Blood Culture - Preliminary NO GROWTH OBTAINED AFTER 24 HOURS, INCUBATION TO CONTINUE FOR [address]. cxray no infiltrate ct scan reviewed with dr benitez Current Medications Albuterol/Ipratropium (Duoneb -) 1 amp NEB RQID [facility] Last Admin: 09/07/18 11:44 Dose: 1 amp Chlorhexidine Gluconate (Hibiclens For Decolonization -) 1 applic TP HS [facility] Last Admin: 09/06/18 21:37 Dose: 1 applic Dexamethasone Sodium Phosphate (Decadron Injection -) 6 mg IVPUSH Q6H-IV [facility] Last Admin: 09/07/18 14:39 Dose: 6 mg Norepinephrine Bitartrate 8, (000 mcg/ Dextrose) 500 mls @ 18.75 mls/hr IV TITR [facility]; Protocol Last Admin: 09/07/18 06:46 Dose: Not Given Lactated Ringer's (Lactated Ringers Solution) 1,000 ml in 1,000 mls @ 125 mls/ hr IV ASDIR [facility] Last Admin: 09/07/18 06:47 Dose: Not Given Metronidazole (Flagyl 500mg Premixed Ivpb -) 500 mg in 100 mls @ 100 mls/hr IVPB TID [facility] Last Admin: 09/07/18 14:39 Dose: 100 mls/hr Cefepime HCl (Maxipime 2gm Ivpb (Premix)) 2 gm in 50 mls @ 100 mls/hr IVPB BID [facility]; Protocol Levetiracetam (Keppra Injection -) 500 mg IVPB BID [facility] Last Admin: 09/07/18 09:27 Dose: 500 mg Mupirocin (Bactroban Ointment (For Decolonization) -) 1 applic NS BID [facility] Stop: 09/11/18 09:59 Last Admin: 09/07/18 09:28 Dose: 1 applic Pantoprazole Sodium (Protonix Iv) 40 mg IVPUSH DAILY [facility] Last Admin: 09/07/18 09:27 Dose: 40 mg a/p fever/leukocytosis hypotension resolved crow resolved brain masses with edema continue cefepime/flagyl- ?aspiration- dose adjusted for resolving crow for transfer to [facility] over 40 minutes spent in the care of this critically ill ICU patient Problem List - Problems (1) Septic shock Code(s): A41.9 - SEPSIS, UNSPECIFIED ORGANISM; R65.21 - SEVERE SEPSIS WITH SEPTIC SHOCK (2) Fever Code(s): R50.9 - FEVER, UNSPECIFIED (3) Hypotension Code(s): I95.9 - HYPOTENSION, UNSPECIFIED (4) 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
--- NOTE | 2018-09-07 16:09 | PN ---
Progress Note, Physician History of Present Illness: Pt seen and examined at bedside. She remains in the ICU. She remains intubated. - Current Medication List Current Medications: Active Medications Albuterol/Ipratropium (Duoneb -) 1 amp NEB RQID [facility] Last Admin: 09/07/18 11:44 Dose: 1 amp Chlorhexidine Gluconate (Hibiclens For Decolonization -) 1 applic TP HS [facility] Last Admin: 09/06/18 21:37 Dose: 1 applic Dexamethasone Sodium Phosphate (Decadron Injection -) 6 mg IVPUSH Q6H-IV [facility] Last Admin: 09/07/18 14:39 Dose: 6 mg Norepinephrine Bitartrate 8, (000 mcg/ Dextrose) 500 mls @ 18.75 mls/hr IV TITR [facility]; Protocol Last Admin: 09/07/18 06:46 Dose: Not Given Lactated Ringer's (Lactated Ringers Solution) 1,000 ml in 1,000 mls @ 125 mls/ hr IV ASDIR [facility] Last Admin: 09/07/18 06:47 Dose: Not Given Metronidazole (Flagyl 500mg Premixed Ivpb -) 500 mg in 100 mls @ 100 mls/hr IVPB TID [facility] Last Admin: 09/07/18 14:39 Dose: 100 mls/hr Cefepime HCl 2 gm/ Dextrose 100 mls @ 100 mls/hr IVPB DAILY [facility]; Protocol Last Admin: 09/07/18 09:27 Dose: 100 mls/hr Levetiracetam (Keppra Injection -) 500 mg IVPB BID [facility] Last Admin: 09/07/18 09:27 Dose: 500 mg Mupirocin (Bactroban Ointment (For Decolonization) -) 1 applic NS BID [facility] Stop: 09/11/18 09:59 Last Admin: 09/07/18 09:28 Dose: 1 applic Pantoprazole Sodium (Protonix Iv) 40 mg IVPUSH DAILY [facility] Last Admin: 09/07/18 09:27 Dose: 40 mg - Objective Vital Signs: Vital Signs Temperature 96.6 F L 09/07/18 14:00 Pulse Rate 77 09/07/18 14:00 Respiratory Rate 12 09/07/18 14:00 Blood Pressure 93/61 09/07/18 14:00 O2 Sat by Pulse Oximetry (%) 100 09/07/18 11:09 Constitutional: Yes: Calm Eyes: Yes: Conjunctiva Clear Cardiovascular: Yes: S1, S2 Respiratory: Yes: Mechanically Ventilated Gastrointestinal: Yes: Soft Genitourinary: Yes: De Anda Present Musculoskeletal: Yes: Muscle Weakness Edema: No Neurological: Yes: Lethargy Labs: CBC, BMP 09/07/18 07:33 09/07/18 07:33 INR, PTT INR 1.40 (0.83-1.09) H 09/06/18 05:15 Fibrinogen 238.0 mg/dL (238-498) 09/06/18 02:08 Assessment/Plan Current Medications Generic Name Dose Route Start Last Admin Trade Name Freq PRN Reason Stop Dose Admin Albuterol/Ipratropium 1 amp 09/06/18 12:00 09/07/18 11:44 Duoneb - NEB 1 amp RQID [facility] Administration Chlorhexidine Gluconate 1 applic 09/06/18 22:00 09/06/18 21:37 Hibiclens For Decolonization - TP 1 applic HS [facility] Administration Dexamethasone Sodium Phosphate 6 mg 09/06/18 09:00 09/07/18 14:39 Decadron Injection - IVPUSH 6 mg Q6H-IV [facility] Administration Norepinephrine Bitartrate 8, 500 mls @ 18.75 mls/hr 09/05/18 23:45 09/07/18 06:46 000 mcg/ Dextrose IV Not Given TITR [facility] Protocol 5 MCG/MIN Lactated Ringer's 1,000 ml in 1,000 mls @ 125 mls/hr 09/06/18 01:45 09/07/18 06:47 Lactated Ringers Solution IV Not Given ASDIR [facility] Metronidazole 500 mg in 100 mls @ 100 mls/hr 09/07/18 06:00 09/07/18 14:39 Flagyl 500mg Premixed Ivpb - IVPB 100 mls/hr TID [facility] Administration Cefepime HCl 2 gm/ Dextrose 100 mls @ 100 mls/hr 09/07/18 10:00 09/07/18 09: 27 IVPB 100 mls/hr DAILY [facility] Administration Protocol Levetiracetam 500 mg 09/06/18 06:15 09/07/18 09:27 Keppra Injection - IVPB 500 mg BID [facility] Administration Mupirocin 1 applic 09/06/18 10:00 09/07/18 09:28 Bactroban Ointment (For Decolonization) - NS 09/11/18 09:59 1 applic BID [facility] Administration Pantoprazole Sodium 40 mg 09/06/18 10:00 09/07/18 09:27 Protonix Iv IVPUSH 40 mg DAILY [facility] Administration Impression 1. CROW 2. shock 3. hypotension 4. acute resp failure 5. brain masses with midline shift 6. lactic acidosis 7. positive troponins 8. hypernatremia 9. hypokalemia Plan - cont to monitor renal function - cont hypotonic fluids - pt pending transfer to tertiary care facility - monitor bp and pressors as needed - cont ICU care - crow likely from hypotension and shock, likely has atn - monitor urine output - vent support - discussed with ICU team
[2018-09-07] MEDS: CHLORHEXIDINE GLUCONATE 4% CLEANSER FOR DECOLONIZATION TP SCH (21:19)
[2018-09-07] MEDS: CEFEPIME 2 GM in DEXTROSE 5%-WATER - 100 ML IVPB SCH (21:19)
--- NOTE | 2018-09-07 21:39 | CONSULT ---
Consult - text type - Consultation Consultation Note: NEUROLOGY CONSULTATION is greatly appreciated: This 78 yo woman is an [facility] resident with h/o right brain pathology for at least [address]of the head (2006) shows a right frontal isodense mass with edema and mass effect. MRI of brain from 2009 now shows the patient to be s/p Right craniectomy with two discrete masses in the right frontal lobe and a marger one in the right parietal region. These are large, circular and encapsulated but not cystic or fluid filled. A contrast study was not found. Now admitted from [facility] with unresponsiveness, temps to [address] of the head (C-) is reviewed and shows massive right cerebral edema with significant compression of the right ventricular system, effacement of the right gyral/sulcal pattern and massive right to left midline shift. Now on Decadron, cefepime, metrinidazole, and levetiracetam. EXAM: Intubated. + spontaneous respirations. Off narcotics and tranquilizers. Eyes closed. 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 Grasps right hand weakly, on command. Right arm responds to sternal pressure. Rigid tone on right with some cogwheeling (Is that why she was on Mirapex?) Flaccid left hemiplegia with left Babinski and triple flexion reflex withdrawal. Grimaces to pinch on right, not left. IMP: Moderate left and severe right cerebral dysfunction. 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 Fevers > 106 may be "Central" in origin due to hypothalamic compression via Uncal herniation. Cannot exclude right cerebral cerebritis/early abscess formation. SUGGEST: Continue current regimen, especially steroid Rx but also antibiotics, levetiracetam. MRI of the brain (C-C+) to better define any mass lesions. Review prior medical records, biopsy pathology, etc. Thank you very much, Santosh Denton MD
[2018-09-08] MEDS: DEXAMETHASONE SOD PHOSPHATE 10 MG/1 ML VIAL IVPUSH SCH ×4 (02:00→21:40)
[2018-09-08] MEDS: LACTATED RINGERS SOLUTION 1,000 ML/1,000 ML INFUS.BAG IV SCH (02:01)
[2018-09-08 05:57] LABS: BASO % 0.3 % (0-2.0); HEMATOCRIT 29.2 % (32.4-45.2); HEMOGLOBIN 8.9 GM/dL (10.7-15.3); LYMPH % 2.1 % (8-40); MCH 28.5 pg (25.7-33.7); MCHC 30.6 g/dl (32.0-36.0); MEAN PLT VOLUME 8.6 fl (7.5-11.1); MONO % 2.2 % (3.8-10.2); NEUT % 95.4 % (42.8-82.8); PLATELET COUNT 219 K/MM3 (134-434); RBC 3.14 M/mm3 (3.60-5.2); RDW 13.3 % (11.6-15.6); WHITE BLOOD COUNT 15.3 K/mm3 (4.0-10.0)
[2018-09-08 06:19] LABS: ALBUMIN 2.2 g/dl (3.4-5.0); ALK PHOS 54 U/L (45-117); ANION GAP 5 MMOL/L (8-16); BILIRUBIN,TOTAL 0.7 mg/dL (0.2-1); BLOOD UREA NITROGEN 28 mg/dL (7-18); CALCIUM 9.4 mg/dL (8.5-10.1); CHLORIDE 113 mmol/L (98-107); CO2 26 mmol/L (21-32); CREATININE 0.6 mg/dL (0.55-1.3); GLUCOSE,RANDOM 213 mg/dL (74-106); MAGNESIUM 1.9 mg/dL (1.8-2.4); PHOSPHOROUS 1.3 mg/dL (2.5-4.9); POTASSIUM 3.7 mmol/L (3.5-5.1); SGOT/AST 19 U/L (15-37); SGPT/ALT 24 U/L (13-61); SODIUM 144 mmol/L (136-145); TOT PROT 5.1 g/dl (6.4-8.2)
[2018-09-08] MEDS ORDERED: LACTATED RINGERS SOLUTION 1,000 ML/1,000 ML INFUS.BAG IV SCH ×2 (06:27→11:23)
--- NOTE | 2018-09-08 07:11 | PN ---
Physical Exam: SUBJECTIVE: Patient seen and examined at bedside. No acute events overnight. Pt more alert today. Opens eyes on command. Squeezes R hand on command. Not able to move b/l feet. OBJECTIVE: Vital Signs Period Temp Pulse Resp BP Sys/Fried Pulse Ox Last 24 Hr 96.6 F-98.8 F 63-86 12-20 92-122/57-87 100-100 GENERAL: Intubated. NAD. Responds to commands. HEENT: AT/NC. LEIGHA. Opens eyes spontaneously. Dry mucus membranes. NECK: Supple. LUNGS: CTA B/L. No wheezes noted. HEART: RRR. Normal S1, S2. ABDOMEN: Soft, NT/ND. Normoactive BS in all 4Qs. EXTREMITIES: 2+ pulses, warm, well-perfused, no edema. NEUROLOGICAL: Grimaces to pain. SKIN: Warm, dry. CBCD WBC 15.3 K/mm3 (4.0-10.0) H 09/08/18 05:30 RBC 3.14 M/mm3 (3.60-5.2) L 09/08/18 05:30 Hgb 8.9 GM/dL (10.7-15.3) L 09/08/18 05:30 Hct 29.2 % (32.4-45.2) L D 09/08/18 05:30 MCV 93.0 fl (80-96) 09/08/18 05:30 MCHC 30.6 g/dl (32.0-36.0) L 09/08/18 05:30 RDW 13.3 % (11.6-15.6) 09/08/18 05:30 Plt Count 219 K/MM3 (134-434) 09/08/18 05:30 MPV 8.6 fl (7.5-11.1) 09/08/18 05:30 CMP Sodium 144 mmol/L (136-145) 09/08/18 05:30 Potassium 3.7 mmol/L (3.5-5.1) 09/08/18 05:30 Chloride 113 mmol/L (98-107) H 09/08/18 05:30 Carbon Dioxide 26 mmol/L (21-32) 09/08/18 05:30 Anion Gap 5 MMOL/L (8-16) L 09/08/18 05:30 BUN 28 mg/dL (7-18) H 09/08/18 05:30 Creatinine 0.6 mg/dL (0.55-1.3) 09/08/18 05:30 Creat Clearance w eGFR > 60 (>60) 09/08/18 05:30 Calcium 9.4 mg/dL (8.5-10.1) 09/08/18 05:30 Total Bilirubin 0.7 mg/dL (0.2-1) 09/08/18 05:30 AST 19 U/L (15-37) 09/08/18 05:30 ALT 24 U/L (13-61) 09/08/18 05:30 Alkaline Phosphatase 54 U/L (45-117) 09/08/18 05:30 Total Protein 5.1 g/dl (6.4-8.2) L 09/08/18 05:30 Albumin 2.2 g/dl (3.4-5.0) L 09/08/18 05:30 Active Medications Albuterol/Ipratropium (Duoneb -) 1 amp NEB RQID [facility] Last Admin: 09/07/18 20:46 Dose: 1 amp Chlorhexidine Gluconate (Hibiclens For Decolonization -) 1 applic TP HS [facility] Last Admin: 09/07/18 21:19 Dose: 1 applic Dexamethasone Sodium Phosphate (Decadron Injection -) 6 mg IVPUSH Q6H-IV [facility] Last Admin: 09/08/18 02:00 Dose: 6 mg Norepinephrine Bitartrate 8, (000 mcg/ Dextrose) 500 mls @ 18.75 mls/hr IV TITR [facility]; Protocol Last Admin: 09/07/18 23:58 Dose: Not Given Metronidazole (Flagyl 500mg Premixed Ivpb -) 500 mg in 100 mls @ 100 mls/hr IVPB TID [facility] Last Admin: 09/08/18 05:23 Dose: 100 mls/hr Cefepime HCl 2 gm/ Dextrose 100 mls @ 200 mls/hr IVPB BID [facility]; Protocol Last Admin: 09/07/18 21:19 Dose: 200 mls/hr Lactated Ringer's (Lactated Ringers Solution) 1,000 ml in 1,000 mls @ 42 mls/ hr IV ASDIR [facility] Levetiracetam (Keppra Injection -) 500 mg IVPB BID [facility] Last Admin: 09/07/18 21:19 Dose: 500 mg Mupirocin (Bactroban Ointment (For Decolonization) -) 1 applic NS BID [facility] Stop: 09/11/18 09:59 Last Admin: 09/07/18 21:19 Dose: 1 applic Pantoprazole Sodium (Protonix Iv) 40 mg IVPUSH DAILY [facility] Last Admin: 09/07/18 09:27 Dose: 40 mg ASSESSMENT/PLAN: 78yo woman with septic shock with unknown source of infection 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, MODS, HAGMA, severe lactic acidosis. Hypernatremia likely from dehydration. Renal failure may be secondary to sepsis vs prerenal. Neurology #Multiple brain lesions, edema, midline shift found on head CT -Decadron 6 mg Q6H -Keppra 500 BID -monitor CVP, maintain at 8-12 -Pt came in with fever of 106.9 rectally, there is a possibility this may be central vs. infectious etiology due to significant multiple lesion w/ midline shift on head CT -09/06: Neurosurg consulted, recommended to transfer to [facility]. Per night resident, report was given to [facility] neurosurg resident as well as ICU attending. Awaiting callback for accepting physician and available bed at [facility]. -09/07: Per neurosurg, no intervention recommended at this time. Advised to haveContacted [facility] again. Still awaiting bed. -09/08: [facility] aware of transfer. Will contact [facility] neuro ICU if intervention needed to be done at tertiary care center. If not, will plan to keep patient here. Additional consult placed to Dr. Mariee for further neurosurg eval. Await recs. #Alzheimer's Dementia -hold home meds Pulmonary #Acute Respiratory Failure 2/2 ? septic shock -Intubated. 12//60%/5 -CT chest showed honeycombing and cystic changes w/ pleural thickening and small calcifications on R lung apex. Bibasal atelectatic changes w/ mild pleural thickening and trace b/l pleural effusion; cannot r/o superimposed infiltrates. No evid of SBO. Cardiology #Shock 2/2 sepsis vs. neurogenic -cont IVf -Currently off pressors #Elevated troponins, likely 2/2 demand ischemia -2.49>3.41>3.82> 1.37 -EKG showed sinus tachycardia, no evidence of ST-T changes or acute ischemic changes -Per cardio: echo tds but showed grossly normal LV systolic function with no significant valvular abnormalities; unlikely ACS. No cardiac intervention needed at this time. #HTN -BP stable. -Currently hypotensive. Hold home anti-hypertensive meds. #HLD -hold home meds for now GI #GERD -Protonix 40 QD #Hyperbilirubinemia -CTAP showed unremarkable spleen/liver. GB overdistended w/ tiny stones layering at fundus. Pancreas and adrenal glands both unremarkable. Renal #CROW, likely 2/2 dehydration -no evidence of hydronephrosis -IVf -recheck CMP #Hypernatremia -Stable. Na 144 today. -LR @ 100 -recheck CMP #Hypokalemia -Stable. 3.7 today. -replete PRN ID #Septic Shock 2/2 unknown etiology; initial rectal temp 106.1 -Pt's initial presentation may be due to a central process vs. infectious given pt's significant head CT findings. -Afebrile overnight. -BCx neg x48h, UCx neg -CXR showed b/l apical pleural thickening, chronic post-inflammatory changes noted in R apex w/ peribronchial thickening, cystic changes. -Per ID, cont Cefepime/Flagyl -f/u ID recs #Lactic acidosis -6.7 > 3.2 > 2.1 -IVf given Hematology #Coagulopathy; elevated INR -Stable. Prophylaxis GI- Protonix 40 IVP QD DVT- SCDs; hold chemical ppx due to elevated INR FEN -LR @ 100 -recheck lytes in AM -Tube feeds Osmolite dispo -Spoke to Santos at [facility] regarding status pt transfer. Pt has been accepted to the ICU under Dr. Cueto, however, waiting for available bed. Awaiting call back. Will call [facility] if additional interventions will be done at their tertiary facility. If no further interventions needed, will plan have pt remain here. -Unable to contact family at this time. Multiple attempts to contact granddaughter. Palliative care consult placed. Visit type - Emergency Visit Emergency Visit: Yes ED Registration Date: 09/06/18 Care time: The patient presented to the Emergency Department on the above date and was hospitalized for further evaluation of their emergent condition. - New Patient This patient is new to me today: No - Critical Care Critical Care patient: Yes Total Critical Care Time (in minutes): 40 Critical Care Statement: The care of this patient involved high complexity decision making to prevent further life threatening deterioration of the patient 's condition and/or to evaluate & treat vital organ system(s) failure or risk of failure.
[2018-09-08] MEDS: ALBUTEROL SO4 2.5/IPRATROPIUM 0.5 INH SOL 3 ML VIAL.NEB. NEB SCH ×4 (07:52→20:50)
[2018-09-08] MEDS ORDERED: PT OWN MED DRAWER 7, Y5N ONE ×2 (08:05→21:35)
[2018-09-08] MEDS: CEFEPIME 2 GM in DEXTROSE 5%-WATER - 100 ML IVPB SCH ×2 (08:59→21:37)
[2018-09-08] MEDS: levETIRAcetam 500 MG/5 ML INJECTION VIAL IVPB SCH ×2 (09:00→21:37)
[2018-09-08] MEDS: PANTOPRAZOLE SODIUM 40 MG VIAL IVPUSH SCH (09:00)
[2018-09-08] MEDS: MUPIROCIN 2% TOPICAL OINTMENT FOR DECOLONIZATION NS SCH ×2 (09:00→21:39)
--- NOTE | 2018-09-08 09:43 | PN ---
Progress Note, Physician History of Present Illness: Intubated No acute distress WBC 15K on steroids BC (-) - Current Medication List Current Medications: Active Medications Albuterol/Ipratropium (Duoneb -) 1 amp NEB RQID [facility] Last Admin: 09/08/18 07:52 Dose: 1 amp Chlorhexidine Gluconate (Hibiclens For Decolonization -) 1 applic TP HS [facility] Last Admin: 09/07/18 21:19 Dose: 1 applic Dexamethasone Sodium Phosphate (Decadron Injection -) 6 mg IVPUSH Q6H-IV [facility] Last Admin: 09/08/18 08:14 Dose: 6 mg Norepinephrine Bitartrate 8, (000 mcg/ Dextrose) 500 mls @ 18.75 mls/hr IV TITR [facility]; Protocol Last Admin: 09/07/18 23:58 Dose: Not Given Metronidazole (Flagyl 500mg Premixed Ivpb -) 500 mg in 100 mls @ 100 mls/hr IVPB TID [facility] Last Admin: 09/08/18 05:23 Dose: 100 mls/hr Cefepime HCl 2 gm/ Dextrose 100 mls @ 200 mls/hr IVPB BID [facility]; Protocol Last Admin: 09/08/18 08:59 Dose: 200 mls/hr Lactated Ringer's (Lactated Ringers Solution) 1,000 ml in 1,000 mls @ 42 mls/ hr IV ASDIR [facility] Last Admin: 09/08/18 07:00 Dose: 42 mls/hr Levetiracetam (Keppra Injection -) 500 mg IVPB BID [facility] Last Admin: 09/08/18 09:00 Dose: 500 mg Mupirocin (Bactroban Ointment (For Decolonization) -) 1 applic NS BID [facility] Stop: 09/11/18 09:59 Last Admin: 09/08/18 09:00 Dose: 1 applic Pantoprazole Sodium (Protonix Iv) 40 mg IVPUSH DAILY [facility] Last Admin: 09/08/18 09:00 Dose: 40 mg - Objective Vital Signs: Vital Signs Temperature 98.8 F 09/08/18 06:00 Pulse Rate 63 09/08/18 06:00 Respiratory Rate 13 09/08/18 09:17 Blood Pressure 94/57 L 09/08/18 06:00 O2 Sat by Pulse Oximetry (%) 100 09/07/18 20:00 Constitutional: Yes: No Distress Cardiovascular: Yes: S1, S2. No: Regular Rate and Rhythm Respiratory: Yes: Mechanically Ventilated Gastrointestinal: Yes: Normal Bowel Sounds, Soft. No: Tenderness Edema: Yes Labs: CBC, BMP 09/08/18 05:30 09/08/18 05:30 INR, PTT INR 1.40 (0.83-1.09) H 09/06/18 05:15 Fibrinogen 238.0 mg/dL (238-498) 09/06/18 02:08 Assessment/Plan Brain masses Respiratory failure Bronchiectasis Fever/ leukocytosis Continue empiric cefepime/ flagyl Redose vancomycin
[2018-09-08] MEDS ORDERED: VANCOMYCIN 1 GRAM (PRE-DOCKED) 1,000 MG/250 ML BAG IVPB ONE (10:00)
--- NOTE | 2018-09-08 11:13 | PN ---
Teaching Attending Note Name of Resident: Naomi Manuel ATTENDING PHYSICIAN STATEMENT I saw and evaluated the patient. I reviewed the resident's note and discussed the case with the resident. I agree with the resident's findings and plan as documented. SUBJECTIVE: Patient seen and examined in the ICU. Remains intubated, AC mode of vent, 40% FiO2. No pressors. Opens eyes to voice command. Able to cutter gas when prompted. OBJECTIVE: Intake & Output 09/05/18 09/06/18 09/07/18 09/08/18 23:59 23:59 23:59 23:59 Intake Total 1125 3446 2009 Output Total 1650 600 500 Balance -525 2846 1510 Weight 152 lb 6.4 oz 132 lb 12.8 oz 133 lb 133 lb Last Vital Signs Temp Pulse Resp BP Pulse Ox 97.6 F 71 14 92/64 100 09/08/18 10:00 09/08/18 10:00 09/08/18 10:00 09/08/18 10:00 09/07/18 20:00 Active Medications Albuterol/Ipratropium (Duoneb -) 1 amp NEB RQID [facility] Last Admin: 09/08/18 07:52 Dose: 1 amp Chlorhexidine Gluconate (Hibiclens For Decolonization -) 1 applic TP HS [facility] Last Admin: 09/07/18 21:19 Dose: 1 applic Dexamethasone Sodium Phosphate (Decadron Injection -) 6 mg IVPUSH Q6H-IV [facility] Last Admin: 09/08/18 08:14 Dose: 6 mg Norepinephrine Bitartrate 8, (000 mcg/ Dextrose) 500 mls @ 18.75 mls/hr IV TITR [facility]; Protocol Last Admin: 09/07/18 23:58 Dose: Not Given Metronidazole (Flagyl 500mg Premixed Ivpb -) 500 mg in 100 mls @ 100 mls/hr IVPB TID [facility] Last Admin: 09/08/18 05:23 Dose: 100 mls/hr Cefepime HCl 2 gm/ Dextrose 100 mls @ 200 mls/hr IVPB BID [facility]; Protocol Last Admin: 09/08/18 08:59 Dose: 200 mls/hr Lactated Ringer's (Lactated Ringers Solution) 1,000 ml in 1,000 mls @ 42 mls/ hr IV ASDIR [facility] Last Admin: 09/08/18 07:00 Dose: 42 mls/hr Vancomycin HCl (Vancomycin (Pre-Docked)) 1,000 mg in 250 mls @ 166.667 mls/hr IVPB ONCE ONE; Protocol Stop: 09/08/18 11:29 Levetiracetam (Keppra Injection -) 500 mg IVPB BID [facility] Last Admin: 09/08/18 09:00 Dose: 500 mg Mupirocin (Bactroban Ointment (For Decolonization) -) 1 applic NS BID [facility] Stop: 09/11/18 09:59 Last Admin: 09/08/18 09:00 Dose: 1 applic Pantoprazole Sodium (Protonix Iv) 40 mg IVPUSH DAILY [facility] Last Admin: 09/08/18 09:00 Dose: 40 mg Gen: intubated, opens eyes to command Neck: supple Heart: RRR Lung: decreased breath sounds at the bases Abd: soft, nontender Ext: no edema Laboratory Results - last 24 hr 09/08/18 09/08/18 05:30 05:30 WBC 15.3 H RBC 3.14 L Hgb 8.9 L Hct 29.2 L D MCV 93.0 MCH 28.5 MCHC 30.6 L RDW 13.3 Plt Count 219 MPV 8.6 Absolute Neuts (auto) 14.6 H Neutrophils % 95.4 H Neutrophils % (Manual) 99.0 H Band Neutrophils % 0.0 Lymphocytes % 2.1 L D Lymphocytes % (Manual) 0.0 L Monocytes % 2.2 L Monocytes % (Manual) 1 L D Eosinophils % 0.0 Eosinophils % (Manual) 0.0 Basophils % 0.3 Basophils % (Manual) 0.0 Myelocytes % (Man) 0 Promyelocytes % (Man) 0 Blast Cells % (Manual) 0 Nucleated RBC % 0 Metamyelocytes 0 Sodium 144 Potassium 3.7 Chloride 113 H Carbon Dioxide 26 Anion Gap 5 L BUN 28 H Creatinine 0.6 Creat Clearance w eGFR > 60 Random Glucose 213 H Calcium 9.4 Phosphorus 1.3 L Magnesium 1.9 Total Bilirubin 0.7 AST 19 ALT 24 Alkaline Phosphatase 54 Total Protein 5.1 L Albumin 2.2 L ASSESSMENT AND PLAN: Multiple Brain Masses with midline shift Acute Hypoxic Respiratory Failure Resolving Shock Acute Kidney Injury Lactic Acidosis +Troponins likely Demand Ischemia - empiric antibiotics: If all cultures are negative can stop - IVF - continue decadron, empiric antiepileptics - replete lytes - minimize sedation to assess mental status - DVT/GI prophylaxis - There is a consideration for transfer to tertiary medical center per neurosurgery recommendations: Need to clarify what additional interventions, otherwise should remain here. - Enteral feeds Dr Louie Critical care time spent in reviewing chart, evaluating patient and formulating plan 36 min
--- NOTE | 2018-09-08 11:25 | PN ---
Progress Note, Physician Chief Complaint: AMS History of Present Illness: Remains intubated in ICU Awaiting NS consult for mass seen on CT head - Current Medication List Current Medications: Active Medications Albuterol/Ipratropium (Duoneb -) 1 amp NEB RQID [facility] Last Admin: 09/08/18 11:19 Dose: 1 amp Chlorhexidine Gluconate (Hibiclens For Decolonization -) 1 applic TP HS [facility] Last Admin: 09/07/18 21:19 Dose: 1 applic Dexamethasone Sodium Phosphate (Decadron Injection -) 6 mg IVPUSH Q6H-IV [facility] Last Admin: 09/08/18 08:14 Dose: 6 mg Metronidazole (Flagyl 500mg Premixed Ivpb -) 500 mg in 100 mls @ 100 mls/hr IVPB TID [facility] Last Admin: 09/08/18 05:23 Dose: 100 mls/hr Cefepime HCl 2 gm/ Dextrose 100 mls @ 200 mls/hr IVPB BID [facility]; Protocol Last Admin: 09/08/18 08:59 Dose: 200 mls/hr Vancomycin HCl (Vancomycin (Pre-Docked)) 1,000 mg in 250 mls @ 166.667 mls/hr IVPB ONCE ONE; Protocol Stop: 09/08/18 11:29 Last Admin: 09/08/18 11:14 Dose: 166.667 mls/hr Lactated Ringer's (Lactated Ringers Solution) 1,000 ml in 1,000 mls @ 100 mls/ hr IV ASDIR [facility] Levetiracetam (Keppra Injection -) 500 mg IVPB BID [facility] Last Admin: 09/08/18 09:00 Dose: 500 mg Mupirocin (Bactroban Ointment (For Decolonization) -) 1 applic NS BID [facility] Stop: 09/11/18 09:59 Last Admin: 09/08/18 09:00 Dose: 1 applic Pantoprazole Sodium (Protonix Iv) 40 mg IVPUSH DAILY [facility] Last Admin: 09/08/18 09:00 Dose: 40 mg - Objective Vital Signs: Vital Signs Temperature 97.6 F 09/08/18 10:00 Pulse Rate 71 09/08/18 10:00 Respiratory Rate 17 09/08/18 11:18 Blood Pressure 92/64 09/08/18 10:00 O2 Sat by Pulse Oximetry (%) 100 09/07/18 20:00 Constitutional: Yes: Well Nourished, No Distress, Calm Cardiovascular: Yes: Regular Rate and Rhythm Respiratory: Yes: Mechanically Ventilated Gastrointestinal: Yes: Normal Bowel Sounds, Soft Genitourinary: Yes: [place] Present Musculoskeletal: Yes: Muscle Weakness Labs: CBC, BMP 09/08/18 05:30 09/08/18 05:30 INR, PTT INR 1.40 (0.83-1.09) H 09/06/18 05:15 Fibrinogen 238.0 mg/dL (238-498) 09/06/18 02:08
--- NOTE | 2018-09-08 16:45 | CONSULT ---
Consultation: REQUESTING PROVIDER: Dr. Espinal CONSULT REQUEST FOR HEMATOLOGY/ONCOLOGY: We have been asked to medically evaluate this patient for Brain Metastasis. HISTORY OF PRESENT ILLNESS: Patient intubated. All information obtained from medical records and house staff Patient is a 78 year old female with a PMHx of HTN, HLD, Dementia, GERD, OA who [facility] status and unresponsiveness. According to medical records, patient was in her usual state of health in the prison and in the evening she became unresponsive. In the ED patient was found to be tachycardic, tachypneic, desaturated to the 80's with a fever of 106.2. Patient was eventually intubated and transferred to the ICU. CT of the head was done and showed multiple masses with brain edema, mass effect and 6mm shift from the mdiline with effacement of the right ventricle. Neurosurgeon was contacted immediately and recommended transfer to tertiary care center. Patient was accepted to [facility], pending bed availability. Patient was found to have coagulopathy and was given FFP to Raymond brown and Emanuel for the brain edema and brain mass. REVIEW OF SYSTEMS: Unable to obtain PHYSICAL EXAMINATION Vital Signs Temperature 97.5 F L 09/08/18 14:00 Pulse Rate 68 09/08/18 14:00 Respiratory Rate 18 09/08/18 16:19 Blood Pressure 89/56 L 09/08/18 14:00 O2 Sat by Pulse Oximetry (%) 100 09/07/18 20:00 GENERAL: Intubated but responds to verbal commands HEAD: Normal with no signs of trauma. EYES: Pupils equal, round and reactive to light, sclera anicteric, conjunctiva clear. ENT: Dry mucous membranes. LUNGS: Decreased breath sounds anteriorly. ET tube. No accessory muscle use. HEART: Regular rate and rhythm, normal S1 and S2. 2/6 systolic murmur in RUSB ABDOMEN: Soft, nontender, not distended, normoactive bowel sounds, no guarding, no rebound, no masses. No hepatomegaly or splenomegaly. MUSCULOSKELETAL: Normal range of motion at all joints. No bony deformities or tenderness. No CVA tenderness. EXTREMITIES: 2+ pulses, warm, well-perfused. No calf tenderness. No peripheral edema. NEUROLOGICAL: Unable to assess SKIN: Warm, dry, normal turgor, no rashes or lesions noted. Laboratory Results - last 24 hr 09/08/18 09/08/18 05:30 05:30 WBC 15.3 H RBC 3.14 L Hgb 8.9 L Hct 29.2 L D MCV 93.0 MCH 28.5 MCHC 30.6 L RDW 13.3 Plt Count 219 MPV 8.6 Absolute Neuts (auto) 14.6 H Neutrophils % 95.4 H Neutrophils % (Manual) 99.0 H Band Neutrophils % 0.0 Lymphocytes % 2.1 L D Lymphocytes % (Manual) 0.0 L Monocytes % 2.2 L Monocytes % (Manual) 1 L D Eosinophils % 0.0 Eosinophils % (Manual) 0.0 Basophils % 0.3 Basophils % (Manual) 0.0 Myelocytes % (Man) 0 Promyelocytes % (Man) 0 Blast Cells % (Manual) 0 Nucleated RBC % 0 Metamyelocytes 0 Sodium 144 Potassium 3.7 Chloride 113 H Carbon Dioxide 26 Anion Gap 5 L BUN 28 H Creatinine 0.6 Creat Clearance w eGFR > 60 Random Glucose 213 H Calcium 9.4 Phosphorus 1.3 L Magnesium 1.9 Total Bilirubin 0.7 AST 19 ALT 24 Alkaline Phosphatase 54 Total Protein 5.1 L Albumin 2.2 L Active Medications Generic Name Dose Route Start Last Admin Trade Name Freq PRN Reason Stop Dose Admin Albuterol/Ipratropium 1 amp 09/06/18 12:00 09/08/18 16:20 Duoneb - NEB 1 amp RQID [facility] Administration Chlorhexidine Gluconate 1 applic 09/06/18 22:00 09/07/18 21:19 Hibiclens For Decolonization - TP 1 applic HS [facility] Administration Dexamethasone Sodium Phosphate 6 mg 09/06/18 09:00 09/08/18 15:30 Decadron Injection - IVPUSH 6 mg Q6H-IV [facility] Administration Metronidazole 500 mg in 100 mls @ 100 mls/hr 09/07/18 06:00 09/08/18 14:00 Flagyl 500mg Premixed Ivpb - IVPB 100 mls/hr TID [facility] Administration Cefepime HCl 2 gm/ Dextrose 100 mls @ 200 mls/hr 09/07/18 22:00 09/08/18 08: 59 IVPB 200 mls/hr BID [facility] Administration Protocol Lactated Ringer's 1,000 ml in 1,000 mls @ 100 mls/hr 09/08/18 11:23 09/08/18 10:00 Lactated Ringers Solution IV 100 mls/hr ASDIR [facility] Administration Levetiracetam 500 mg 09/06/18 06:15 09/08/18 09:00 Keppra Injection - IVPB 500 mg BID [facility] Administration Mupirocin 1 applic 09/06/18 10:00 09/08/18 09:00 Bactroban Ointment (For Decolonization) - NS 09/11/18 09:59 1 applic BID [facility] Administration Pantoprazole Sodium 40 mg 09/06/18 10:00 09/08/18 09:00 Protonix Iv IVPUSH 40 mg DAILY [facility] Administration ASSESSMENT/PLAN: Patient is a 78 year old female who was BIBEMS for unresponsiveness and was found to have multiple brain masses with brain edema. We were consulted for further evaluation. Problem List: Unresponsiveness Multiple brain lesions, edema, midline shift Acute Respiratory failure Septic shock Previous craniotomy Acute Kidney Injury Lactic Acidosis +Troponins likely Demand Ischemia HTN HLD GERD Alzheimers Dementia Plan: -Brain MRI reviewed and patient found to have multiple brain lesions, probably metastatic malignancy, unsure of primary -CT revealed previous craniotomy, unsure when. Will need records from PCP or NH -Continue Steroids and seizure prophylaxis -Neurosurgery consult recommended Dispo: We will continue to follow the patient. Thank you for this consultative opportunity. Visit type - Emergency Visit Emergency Visit: Yes ED Registration Date: 09/06/18 Care time: The patient presented to the Emergency Department on the above date and was hospitalized for further evaluation of their emergent condition. - New Patient This patient is new to me today: Yes Date on this admission: 09/08/18 - Critical Care Critical Care patient: Yes Total Critical Care Time (in minutes): 45 Critical Care Statement: The care of this patient involved high complexity decision making to prevent further life threatening deterioration of the patient 's condition and/or to evaluate & treat vital organ system(s) failure or risk of failure.
--- NOTE | 2018-09-08 17:28 | PN ---
Progress Note, Physician History of Present Illness: Pt seen and examined at bedside earlier today. She responds to tactile stimuli. She remains in the ICU and remains intubated. - Current Medication List Current Medications: Active Medications Albuterol/Ipratropium (Duoneb -) 1 amp NEB RQID [facility] Last Admin: 09/08/18 16:20 Dose: 1 amp Chlorhexidine Gluconate (Hibiclens For Decolonization -) 1 applic TP HS [facility] Last Admin: 09/07/18 21:19 Dose: 1 applic Dexamethasone Sodium Phosphate (Decadron Injection -) 6 mg IVPUSH Q6H-IV [facility] Last Admin: 09/08/18 15:30 Dose: 6 mg Metronidazole (Flagyl 500mg Premixed Ivpb -) 500 mg in 100 mls @ 100 mls/hr IVPB TID [facility] Last Admin: 09/08/18 14:00 Dose: 100 mls/hr Cefepime HCl 2 gm/ Dextrose 100 mls @ 200 mls/hr IVPB BID [facility]; Protocol Last Admin: 09/08/18 08:59 Dose: 200 mls/hr Lactated Ringer's (Lactated Ringers Solution) 1,000 ml in 1,000 mls @ 100 mls/ hr IV ASDIR [facility] Last Admin: 09/08/18 10:00 Dose: 100 mls/hr Levetiracetam (Keppra Injection -) 500 mg IVPB BID [facility] Last Admin: 09/08/18 09:00 Dose: 500 mg Mupirocin (Bactroban Ointment (For Decolonization) -) 1 applic NS BID [facility] Stop: 09/11/18 09:59 Last Admin: 09/08/18 09:00 Dose: 1 applic Pantoprazole Sodium (Protonix Iv) 40 mg IVPUSH DAILY [facility] Last Admin: 09/08/18 09:00 Dose: 40 mg - Objective Vital Signs: Vital Signs Temperature 97.5 F L 09/08/18 14:00 Pulse Rate 68 09/08/18 14:00 Respiratory Rate 18 09/08/18 16:19 Blood Pressure 89/56 L 09/08/18 14:00 O2 Sat by Pulse Oximetry (%) 100 09/07/18 20:00 Constitutional: Yes: Calm Eyes: Yes: Conjunctiva Clear Cardiovascular: Yes: S1, S2 Respiratory: Yes: Mechanically Ventilated Gastrointestinal: Yes: Normal Bowel Sounds, Soft Genitourinary: Yes: [place] Present Musculoskeletal: Yes: Muscle Weakness Edema: No Neurological: Yes: Other (arousable) Labs: CBC, BMP 09/08/18 05:30 09/08/18 05:30 INR, PTT INR 1.40 (0.83-1.09) H 09/06/18 05:15 Fibrinogen 238.0 mg/dL (238-498) 09/06/18 02:08 Problem List - Problems (1) CROW (acute kidney injury) Code(s): N17.9 - ACUTE KIDNEY FAILURE, UNSPECIFIED (2) Hypotension Code(s): I95.9 - HYPOTENSION, UNSPECIFIED Assessment/Plan Current Medications Generic Name Dose Route Start Last Admin Trade Name Freq PRN Reason Stop Dose Admin Albuterol/Ipratropium 1 amp 09/06/18 12:00 09/08/18 16:20 Duoneb - NEB 1 amp RQID [facility] Administration Chlorhexidine Gluconate 1 applic 09/06/18 22:00 09/07/18 21:19 Hibiclens For Decolonization - TP 1 applic HS [facility] Administration Dexamethasone Sodium Phosphate 6 mg 09/06/18 09:00 09/08/18 15:30 Decadron Injection - IVPUSH 6 mg Q6H-IV [facility] Administration Metronidazole 500 mg in 100 mls @ 100 mls/hr 09/07/18 06:00 09/08/18 14:00 Flagyl 500mg Premixed Ivpb - IVPB 100 mls/hr TID [facility] Administration Cefepime HCl 2 gm/ Dextrose 100 mls @ 200 mls/hr 09/07/18 22:00 09/08/18 08: 59 IVPB 200 mls/hr BID [facility] Administration Protocol Lactated Ringer's 1,000 ml in 1,000 mls @ 100 mls/hr 09/08/18 11:23 09/08/18 10:00 Lactated Ringers Solution IV 100 mls/hr ASDIR [facility] Administration Levetiracetam 500 mg 09/06/18 06:15 09/08/18 09:00 Keppra Injection - IVPB 500 mg BID [facility] Administration Mupirocin 1 applic 09/06/18 10:00 09/08/18 09:00 Bactroban Ointment (For Decolonization) - NS 09/11/18 09:59 1 applic BID [facility] Administration Pantoprazole Sodium 40 mg 09/06/18 10:00 09/08/18 09:00 Protonix Iv IVPUSH 40 mg DAILY [facility] Administration Impression 1. CROW 2. shock 3. hypotension 4. acute resp failure 5. brain masses with midline shift 6. lactic acidosis 7. positive troponins 8. hypernatremia 9. hypokalemia Plan - renal function stabilizing - sodium is improving - vent support - repeat labs in am - pt tolerating feeds - will follow - cont ICU care - crow likely from hypotension and shock, likely has atn - monitor urine output
--- NOTE | 2018-09-08 17:39 | PN ---
Progress Note (short form) - Note Progress Note: NEUROSURGERY CONSULT DICTATED Chart reviewed Pt examined CT reviewed H/o HTN, HLD, dementia, and parkinson's from NH presented with unresponsiveness with high fever. Patient was intubated for 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. Prior history of craniotomy for tumor, path unknown. NH record did not reveal path. PE: 97.5, 89/56 on vent; not following commands HEENT- healed R hemipheric incision; Neck- supple; Cor- RR; Lungs- decreased BS ; Abd- benign; Ext- B UE/LE edema CN- PERRL, difficult to assess fully; Motor- R UE slight withdrawal to pain; Sensation- difficult to assess; DTR- hyporeflexic, B toes upgoing WBC 20.5 to 15.3;Troponin 1.65/1.37; BUN/Cr 28/0.[address]- R parietal > frontal ? dural-based isodense mass with mass effect, edema, and R to L shift. Prior R craniectomy and cranioplasty R parietal > frontal isodense possibly dural based lesions possibly invasive/ malignant meningiomas, with edema/mass effect Sepsis on broad spectrum iv abx Keppra for sz prophylaxis MRI if feasible, otherwise could consider CT with iv contrast Regardless, surgery for brain lesions is not recommended given poor current baseline neurological and medical condition including sepsis D/w ICU team
--- NOTE | 2018-09-08 18:19 | PN ---
Teaching Attending Note Name of Resident: Yola Poe ATTENDING PHYSICIAN STATEMENT I saw and evaluated the patient. I reviewed the resident's note and discussed the case with the resident. I agree with the resident's findings and plan as documented. ASSESSMENT AND PLAN: H/o HTN, HLD,bronchiectasis, dementia, and parkinson's from [place] presented with unresponsiveness with high fever. Patient was intubated for 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. Prior history of craniotomy for tumor, ?meningioma. PE: 97.5, 89/56 on vent; not following commands HEENT- healed R hemipheric incision; Neck- supple; Cor- RR; Lungs- decreased BS ; Abd- benign; Ext- B UE/LE edema CN- difficult to assess fully; not withdrawing Head CT- R parietal, frontal ? dural-based isodense mass with moderate mass effect, edema, and R to L shift. Prior R craniectomy and cranioplasty Being managed for septic shock On steroids/keppra for presumed recurrent meningioma with mass effect poor overall prognosis
[2018-09-08] MEDS: CHLORHEXIDINE GLUCONATE 4% CLEANSER FOR DECOLONIZATION TP SCH (21:37)
[2018-09-09] MEDS: DEXAMETHASONE SOD PHOSPHATE 10 MG/1 ML VIAL IVPUSH SCH ×4 (02:03→22:30)
[2018-09-09] MEDS ORDERED: PT OWN MED DRAWER 7, Y5N ONE ×3 (02:40→12:44)
[2018-09-09] MEDS ORDERED: POTASSIUM PHOSPHATE 30 MM in SODIUM CHLORIDE 250 ML IVPB ONE (06:50)
[2018-09-09] MEDS: ALBUTEROL SO4 2.5/IPRATROPIUM 0.5 INH SOL 3 ML VIAL.NEB. NEB SCH ×4 (07:30→20:52)
[2018-09-09] MEDS ORDERED: POTASSIUM PHOSPHATE 30 MM in DEXTROSE 5%-WATER - 250 ML IVPB ONE (07:50)
[2018-09-09 08:44] LABS: HEMATOCRIT 31.4 % (32.4-45.2); HEMOGLOBIN 10.6 GM/dL (10.7-15.3); MCH 30.8 pg (25.7-33.7); MCHC 33.8 g/dl (32.0-36.0); MEAN CELL VOLUME 91.3 fl (80-96); MEAN PLT VOLUME 9.1 fl (7.5-11.1); PLATELET COUNT 269 K/MM3 (134-434); RBC 3.44 M/mm3 (3.60-5.2); RDW 13.3 % (11.6-15.6); WHITE BLOOD COUNT 17.1 K/mm3 (4.0-10.0)
[2018-09-09] MEDS: levETIRAcetam 500 MG/5 ML INJECTION VIAL IVPB SCH ×2 (09:19→22:31)
[2018-09-09] MEDS: PANTOPRAZOLE SODIUM 40 MG VIAL IVPUSH SCH (09:20)
[2018-09-09 09:34] LABS: ALBUMIN 2.4 g/dl (3.4-5.0); ALK PHOS 67 U/L (45-117); ANION GAP 11 MMOL/L (8-16); BILIRUBIN,TOTAL 0.9 mg/dL (0.2-1); BLOOD UREA NITROGEN 24 mg/dL (7-18); CALCIUM 9.4 mg/dL (8.5-10.1); CHLORIDE 107 mmol/L (98-107); CO2 24 mmol/L (21-32); CREATININE 0.5 mg/dL (0.55-1.3); GLUCOSE,RANDOM 228 mg/dL (74-106); MAGNESIUM 1.9 mg/dL (1.8-2.4); PHOSPHOROUS 1.2 mg/dL (2.5-4.9); POTASSIUM 3.7 mmol/L (3.5-5.1); SGOT/AST 103 U/L (15-37); SGPT/ALT 106 U/L (13-61); SODIUM 142 mmol/L (136-145); TOT PROT 5.5 g/dl (6.4-8.2)
--- NOTE | 2018-09-09 09:40 | PN ---
Progress Note (short form) - Note Progress Note: NEUROSURGERY Intubated PE: T max 97.6, on vent; not following commands HEENT- healed R hemipheric incision; Neck- supple; Cor- RR; Lungs- decreased BS ; Abd- benign; Ext- B UE/LE edema CN- PERRL, difficult to assess fully; Motor- R UE slight withdrawal to pain, no L UE movement; R LE movement to pain >> L; Sensation- difficult to assess; DTR - hyporeflexic, B toes upgoing WBC 17.1, Hgb 10.6 Blood cultures negative to date Head CT- R parietal > frontal ? dural-based isodense mass with mass effect, edema, and R to L shift. Prior R craniectomy and cranioplasty R parietal > frontal isodense possibly dural based lesions possibly invasive/ malignant meningiomas, with edema/mass effect Sepsis on broad spectrum iv abx Keppra for sz prophylaxis MRI if feasible, otherwise could consider CT with iv contrast Regardless, surgery for brain lesions is not recommended given poor current baseline neurological and medical condition including sepsis Comfort care
--- NOTE | 2018-09-09 09:49 | CONS ---
DATE OF CONSULTATION: DATE OF DICTATION: 09/08/2018 REQUESTING PHYSICIAN: Zheng Espinal MD PRESSING MACHINE OPERATOR: Lowell Maria MD, Neurosurgery CHIEF COMPLAINT: Intracranial lesion. HISTORY OF PRESENT ILLNESS: The patient is a 78-year-old right-handed female with reported history of Parkinson disease, dementia, hypertension, hypercholesterolemia as well as prior craniotomies for a brain tumor who was admitted with high fever and altered mental status. She had been intubated for airway protection. She reportedly underwent prior craniotomy and has had imaging studies at this hospital dating back 10 years plus. The past is unknown to us unfortunately despite reviewing her chart as well as her senior living records. Presently, the patient is intubated. She could not cooperate for a full examination. PAST MEDICAL HISTORY: Significant for dementia, Parkinson, hypertension, hypercholesterolemia, craniotomy for brain tumors. CURRENT MEDICATIONS: Include cefepime, Decadron, Flagyl, Keppra, albuterol, and Protonix. ALLERGIES: There are no known drug allergies. FAMILY HISTORY: Unknown. SOCIAL HISTORY: Unknown. She is a senior living resident. REVIEW OF SYSTEMS: Not able to obtain. PHYSICAL EXAMINATION: Vital Signs: Temperature 97.5, blood pressure 89/56, pulse rate 68, O2 saturation 98% on 40% FiO2. HEENT: Shows a healed right-sided craniotomy incision. There is bumpiness under the incision likely secondary to osteophytes and the prior implants. Neck: Supple. Coronary: Demonstrates regular rhythm. Lungs: Shows decreased breath sounds. Abdomen: Benign. Extremities: Shows edema upper and lower extremities bilaterally. Neurologic: The patient has her eyes open but does not track or follow commands. Cranial nerve examination shows her pupils to be equal and reactive to light. Motor examination shows the right upper extremity to withdraw slightly to central painful stimulus. Sensory sensation is difficult to test. Deep tendon reflexes are hyporeflexive throughout. Toes are upgoing bilaterally. DIAGNOSTIC DATA: Laboratory examination shows sodium to be 144, potassium 3.7, BUN 28, creatinine 0.6, glucose 213, lactic acid last 2.1. Troponin 1.65 then 1.37. White blood cell count initially 20.5 and is now 15.3. Hemoglobin 8.9, platelet count 219,000, INR 1.4, PTT 52.5. Blood culture and urine culture are negative to date. CT scan of the head was compared to a prior CT scan from 2010. There is a large right parietal 7.5-cm x 5-cm lesion as well there is a right frontal 2.5-cm x 2-cm lesion, which is dural based with associated vasogenic edema and about a 7-mm [id number] shift. There is encephalomalacia of the right hemisphere. There is no acute intracranial hemorrhage. IMPRESSION: 1. Probable multifocal intracranial meningioma, possibly malignant meningioma with mass affect and midline shift. 2. Probable sepsis. IV antibiotic coverage. 3. Parkinson disease. 4. Dementia. 5. Hypertension. RECOMMENDATIONS: The patient presents with altered mental status and a high fever. She is being covered with a broad-spectrum IV antibiotic. Her examination is very limited at this time. CT scan of the head demonstrated probable recurrent meningioma in the right parietal greater than right frontal regions with associated mass affect, edema, and midline shift. These are not safely excisable lesions especially given her current neurological and medical conditions including sepsis. Continued treatment of ongoing infection as well as comfort care are the reasonable approach at this time. MRI could be obtained to better assess the size of these lesions; however, the patient is intubated, and our MRI cannot accommodate such an intubated patient at this time. A CT scan of the head with contrast could be considered for better delineating this lesion. Regardless, surgical evaluation is not recommended because of the patient's current poor neurological and general medical conditions. The above was discussed with the ICU team. LOWELL MARIA M.D. SHELLIE/[id number]
--- NOTE | 2018-09-09 09:59 | PN ---
Teaching Attending Note Name of Resident: Sekou Marquez ATTENDING PHYSICIAN STATEMENT I saw and evaluated the patient. I reviewed the resident's note and discussed the case with the resident. I agree with the resident's findings and plan as documented. SUBJECTIVE: Patient seen and examined in the ICU. Remains intubated, AC mode of vent, 40% FiO2. No pressors. Opens eyes to voice command. 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 OBJECTIVE: Intake & Output 09/06/18 09/07/18 09/08/18 09/09/18 23:59 23:59 23:59 23:59 Intake Total 1125 3446 3530 2258 Output Total 1650 600 800 900 Balance -525 2846 2730 1358 Weight 132 lb 12.8 oz 133 lb 133 lb 154 lb 8.705 oz Last Vital Signs Temp Pulse Resp BP Pulse Ox 97.6 F 82 17 130/70 100 09/09/18 08:00 09/09/18 08:00 09/09/18 09:07 09/09/18 08:00 09/08/18 21:00 Active Medications Albuterol/Ipratropium (Duoneb -) 1 amp NEB RQID [facility] Last Admin: 09/09/18 07:30 Dose: 1 amp Chlorhexidine Gluconate (Hibiclens For Decolonization -) 1 applic TP HS [facility] Last Admin: 09/08/18 21:37 Dose: 1 applic Dexamethasone Sodium Phosphate (Decadron Injection -) 6 mg IVPUSH Q6H-IV [facility] Last Admin: 09/09/18 09:20 Dose: 6 mg Metronidazole (Flagyl 500mg Premixed Ivpb -) 500 mg in 100 mls @ 100 mls/hr IVPB TID [facility] Last Admin: 09/09/18 06:21 Dose: 100 mls/hr Cefepime HCl 2 gm/ Dextrose 100 mls @ 200 mls/hr IVPB BID [facility]; Protocol Last Admin: 09/08/18 21:37 Dose: 200 mls/hr Lactated Ringer's (Lactated Ringers Solution) 1,000 ml in 1,000 mls @ 100 mls/ hr IV [facility] Last Admin: 09/08/18 10:00 Dose: 100 mls/hr Potassium Phosphate 30 mm/ (Sodium Chloride) 260 mls @ 62.5 mls/hr IVPB ONCE ONE Stop: 09/09/18 10:59 Last Admin: 09/09/18 09:14 Dose: 62.5 mls/hr Levetiracetam (Keppra Injection -) 500 mg IVPB BID [facility] Last Admin: 09/09/18 09:19 Dose: 500 mg Mupirocin (Bactroban Ointment (For Decolonization) -) 1 applic NS BID [facility] Stop: 09/11/18 09:59 Last Admin: 09/08/18 21:39 Dose: 1 applic Pantoprazole Sodium (Protonix Iv) 40 mg IVPUSH DAILY [facility] Last Admin: 09/09/18 09:20 Dose: 40 mg Gen: intubated, opens eyes to command Neck: supple Heart: RRR Lung: decreased breath sounds at the bases Abd: soft, nontender Ext: no edema Laboratory Results - last 24 hr 09/09/18 09/09/18 08:25 09:30 WBC 17.1 H RBC 3.44 L Hgb 10.6 L Hct 31.4 L MCV 91.3 MCH 30.8 MCHC 33.8 RDW 13.3 Plt Count 269 D MPV 9.1 Sodium 142 Potassium 3.7 Chloride 107 Carbon Dioxide 24 Anion Gap 11 BUN 24 H Creatinine 0.5 L Creat Clearance w eGFR > 60 Random Glucose 228 H Calcium 9.4 Phosphorus 1.2 L Magnesium 1.9 Total Bilirubin 0.9 AST 103 H ALT 106 H Alkaline Phosphatase 67 Total Protein 5.5 L Albumin 2.4 L ASSESSMENT AND PLAN: Multiple Brain Masses with midline shift Acute Hypoxic Respiratory Failure Resolving Shock Acute Kidney Injury Lactic Acidosis +Troponins likely Demand Ischemia - ABX per ID - IVF - continue decadron, empiric antiepileptics - replete lytes - minimize sedation to assess mental status - DVT/GI prophylaxis - No neurosurgical intervention - Enteral feeds Dr Louie Critical care time spent in reviewing chart, evaluating patient and formulating plan 36 min
[2018-09-09] MEDS: CEFEPIME 2 GM in DEXTROSE 5%-WATER - 100 ML IVPB SCH ×2 (10:18→22:38)
--- NOTE | 2018-09-09 10:59 | PN ---
Physical Exam: SUBJECTIVE: Patient seen and examined. No acute events overnight. -Intubated 40% FIO2 Awake, moves fingers, wiggles toes. OBJECTIVE: Vital Signs Period Temp Pulse Resp BP Sys/Fried Pulse Ox Last 24 Hr 97.2 F-97.8 F 66-85 10-20 86-140/54-85 98-100 GENERAL: lethargic. follows commands. EYES: pupils reactive ENT: moist mucous membranes. LUNGS: decreased breath sounds @ bases HEART: RRR ABDOMEN: Soft, no grimacing to palpation EXTREMITIES: 2+ pulses, no edema NEUROLOGICAL: wiggles toes, separations scientist hands when asked. Laboratory Results - last 24 hr 09/09/18 09/09/18 08:25 09:30 WBC 17.1 H RBC 3.44 L Hgb 10.6 L Hct 31.4 L MCV 91.3 MCH 30.8 MCHC 33.8 RDW 13.3 Plt Count 269 D MPV 9.1 Sodium 142 Potassium 3.7 Chloride 107 Carbon Dioxide 24 Anion Gap 11 BUN 24 H Creatinine 0.5 L Creat Clearance w eGFR > 60 Random Glucose 228 H Calcium 9.4 Phosphorus 1.2 L Magnesium 1.9 Total Bilirubin 0.9 AST 103 H ALT 106 H Alkaline Phosphatase 67 Total Protein 5.5 L Albumin 2.4 L Active Medications Generic Name Dose Route Start Last Admin Trade Name Freq PRN Reason Stop Dose Admin Albuterol/Ipratropium 1 amp 09/06/18 12:00 18 07:30 Duoneb - NEB 1 amp RQID [facility] Administration Chlorhexidine Gluconate 1 applic 09/06/18 22:00 09/08/18 21:37 Hibiclens For Decolonization - TP 1 applic HS [facility] Administration Dexamethasone Sodium Phosphate 6 mg 09/06/18 09:00 09/09/18 09:20 Decadron Injection - IVPUSH 6 mg Q6H-IV [facility] Administration Metronidazole 500 mg in 100 mls @ 100 mls/hr 09/07/18 06:00 09/09/18 06:21 Flagyl 500mg Premixed Ivpb - IVPB 100 mls/hr TID [facility] Administration Cefepime HCl 2 gm/ Dextrose 100 mls @ 200 mls/hr 09/07/18 22:00 09/09/18 10: 18 IVPB 200 mls/hr BID [facility] Administration Protocol Lactated Ringer's 1,000 ml in 1,000 mls @ 100 mls/hr 09/08/18 11:23 09/08/18 10:00 Lactated Ringers Solution IV 100 mls/hr ASDIR [facility] Administration Potassium Phosphate 30 mm/ 260 mls @ 62.5 mls/hr 09/09/18 06:50 09/09/18 09: 14 Sodium Chloride IVPB 09/09/18 10:59 62.5 mls/hr ONCE ONE Administration Levetiracetam 500 mg 09/06/18 06:15 09/09/18 09:19 Keppra Injection - IVPB 500 mg BID [facility] Administration Mupirocin 1 applic 09/06/18 10:00 09/08/18 21:39 Bactroban Ointment (For Decolonization) - NS 09/11/18 09:59 1 applic BID [facility] Administration Pantoprazole Sodium 40 mg 09/06/18 10:00 09/09/18 09:20 Protonix Iv IVPUSH 40 mg DAILY [facility] Administration ASSESSMENT/PLAN: 78yo woman with septic shock with unknown source of infection 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, MODS, HAGMA, severe lactic acidosis. Hypernatremia likely from dehydration. Renal failure may be secondary to sepsis vs prerenal. Neurology #Multiple brain lesions, edema, midline shift found on head CT -Decadron 6 mg Q6H -Keppra 500 BID -monitor CVP, maintain at 8-12 -09/06: Neurosurg consulted, recommended to transfer to [facility]. Per night resident, report was given to [facility] neurosurg resident as well as ICU attending. Awaiting callback for accepting physician and available bed at [facility]. -09/07: Per neurosurg, no intervention recommended at this time. Advised to haveContacted [facility] again. Still awaiting bed. -09/08: [facility] aware of transfer. Will contact [facility] neuro ICU if intervention needed to be done at tertiary care center. If not, will plan to keep patient here. Additional consult placed to Dr. Mariee for further neurosurg eval. Await recs. -09/09: no word from [facility]. Will likely hold Transfer, neurosurgery with recommendations of comfort care. Surgery for brain lesions is not recommended given poor current baseline neurological and medical condition including sepsis. #Alzheimer's Dementia -hold home meds Pulmonary #Acute Respiratory Failure -Intubated. 12/400/60%/5 -CT chest showed honeycombing and cystic changes w/ pleural thickening and small calcifications on R lung apex. Bibasal atelectatic changes w/ mild pleural thickening and trace b/l pleural effusion; cannot r/o superimposed infiltrates. No evid of SBO. -Will try to wean today. Cardiology #Shock 2/2 sepsis vs. neurogenic -cont IVf -Currently off pressors #Elevated troponins, likely 2/2 demand ischemia -likely demand. peaked. -EKG showed sinus tachycardia, no evidence of ST-T changes or acute ischemic changes -Per cardio: echo tds but showed grossly normal LV systolic function with no significant valvular abnormalities; unlikely ACS. No cardiac intervention needed at this time. #HTN -BP stable. -monitor #HLD -hold home meds for now GI #GERD -Protonix 40 QD #Hyperbilirubinemia -CTAP showed unremarkable spleen/liver. GB overdistended w/ tiny stones layering at fundus. Pancreas and adrenal glands both unremarkable. Renal #CROW, likely 2/2 dehydration -resolved -IVf #Hypernatremia -resolved #Hypokalemia -resolved ID #Septic Shock 2/2 unknown etiology -Pt's initial presentation may be due to a central process vs. infectious given pt's significant head CT findings. -Afebrile overnight. -BCx neg x48h, UCx neg -Per ID, cont Cefepime/Flagyl -f/u ID recs Hematology #Coagulopathy; -Stable. Prophylaxis GI- Protonix 40 IVP QD DVT- SCDs; hold chemical ppx due to elevated INR FEN -LR @ 100 -monitor -Tube feeds Osmolite dispo: [facility] palliative Visit type - Emergency Visit Emergency Visit: Yes ED Registration Date: 09/06/18 Care time: The patient presented to the Emergency Department on the above date and was hospitalized for further evaluation of their emergent condition. - New Patient This patient is new to me today: Yes Date on this admission: 09/11/18 - Critical Care Critical Care patient: Yes Total Critical Care Time (in minutes): 35 Critical Care Statement: The care of this patient involved high complexity decision making to prevent further life threatening deterioration of the patient 's condition and/or to evaluate & treat vital organ system(s) failure or risk of failure.
--- NOTE | 2018-09-09 11:26 | PN ---
Progress Note, Physician History of Present Illness: Intubated No acute distress WBC 17K on steroids BC (-) - Current Medication List Current Medications: Active Medications Albuterol/Ipratropium (Duoneb -) 1 amp NEB RQID [facility] Last Admin: 09/09/18 11:17 Dose: 1 amp Chlorhexidine Gluconate (Hibiclens For Decolonization -) 1 applic TP HS [facility] Last Admin: 09/08/18 21:37 Dose: 1 applic Dexamethasone Sodium Phosphate (Decadron Injection -) 6 mg IVPUSH Q6H-IV [facility] Last Admin: 09/09/18 09:20 Dose: 6 mg Metronidazole (Flagyl 500mg Premixed Ivpb -) 500 mg in 100 mls @ 100 mls/hr IVPB TID [facility] Last Admin: 09/09/18 06:21 Dose: 100 mls/hr Cefepime HCl 2 gm/ Dextrose 100 mls @ 200 mls/hr IVPB BID [facility]; Protocol Last Admin: 09/09/18 10:18 Dose: 200 mls/hr Lactated Ringer's (Lactated Ringers Solution) 1,000 ml in 1,000 mls @ 100 mls/ hr IV ASDIR [facility] Last Admin: 09/08/18 10:00 Dose: 100 mls/hr Levetiracetam (Keppra Injection -) 500 mg IVPB BID [facility] Last Admin: 09/09/18 09:19 Dose: 500 mg Mupirocin (Bactroban Ointment (For Decolonization) -) 1 applic NS BID [facility] Stop: 09/11/18 09:59 Last Admin: 09/08/18 21:39 Dose: 1 applic Pantoprazole Sodium (Protonix Iv) 40 mg IVPUSH DAILY [facility] Last Admin: 09/09/18 09:20 Dose: 40 mg - Objective Vital Signs: Vital Signs Temperature 97.4 F L 09/09/18 10:00 Pulse Rate 70 09/09/18 10:00 Respiratory Rate 19 09/09/18 11:12 Blood Pressure 106/53 L 09/09/18 10:00 O2 Sat by Pulse Oximetry (%) 98 09/09/18 09:00 Constitutional: Yes: No Distress Eyes: Yes: Conjunctiva Clear Cardiovascular: Yes: Regular Rate and Rhythm, S1, S2 Respiratory: Yes: Mechanically Ventilated Gastrointestinal: Yes: Normal Bowel Sounds, Soft, Palpable Mass. No: Tenderness Labs: CBC, BMP 09/09/18 08:25 09/09/18 09:30 INR, PTT INR 1.40 (0.83-1.09) H 09/06/18 05:15 Fibrinogen 238.0 mg/dL (238-498) 09/06/18 02:08 Assessment/Plan Brain masses Respiratory failure Bronchiectasis Fever/ leukocytosis Continue empiric cefepime/ flagyl Redose vancomycin
[2018-09-09] MEDS: MUPIROCIN 2% TOPICAL OINTMENT FOR DECOLONIZATION NS SCH ×2 (11:29→22:30)
[2018-09-09] MEDS ORDERED: VANCOMYCIN 1 GRAM (PRE-DOCKED) 1,000 MG/250 ML BAG IVPB ONE (11:45)
--- NOTE | 2018-09-09 11:53 | PN ---
Progress Note, Physician - Current Medication List Current Medications: Active Medications Albuterol/Ipratropium (Duoneb -) 1 amp NEB RQID [facility] Last Admin: 09/09/18 11:17 Dose: 1 amp Chlorhexidine Gluconate (Hibiclens For Decolonization -) 1 applic TP HS [facility] Last Admin: 09/08/18 21:37 Dose: 1 applic Dexamethasone Sodium Phosphate (Decadron Injection -) 6 mg IVPUSH Q6H-IV [facility] Last Admin: 09/09/18 09:20 Dose: 6 mg Metronidazole (Flagyl 500mg Premixed Ivpb -) 500 mg in 100 mls @ 100 mls/hr IVPB TID [facility] Last Admin: 09/09/18 06:21 Dose: 100 mls/hr Cefepime HCl 2 gm/ Dextrose 100 mls @ 200 mls/hr IVPB BID [facility]; Protocol Last Admin: 09/09/18 10:18 Dose: 200 mls/hr Lactated Ringer's (Lactated Ringers Solution) 1,000 ml in 1,000 mls @ 100 mls/ hr IV ASDIR [facility] Last Admin: 09/08/18 10:00 Dose: 100 mls/hr Vancomycin HCl (Vancomycin (Pre-Docked)) 1,000 mg in 250 mls @ 166.667 mls/hr IVPB ONCE ONE; Protocol Stop: 09/09/18 13:14 Levetiracetam (Keppra Injection -) 500 mg IVPB BID [facility] Last Admin: 09/09/18 09:19 Dose: 500 mg Mupirocin (Bactroban Ointment (For Decolonization) -) 1 applic NS BID [facility] Stop: 09/11/18 09:59 Last Admin: 09/09/18 11:29 Dose: 1 applic Pantoprazole Sodium (Protonix Iv) 40 mg IVPUSH DAILY [facility] Last Admin: 09/09/18 09:20 Dose: 40 mg - Objective Vital Signs: Vital Signs Temperature 97.4 F L 09/09/18 10:00 Pulse Rate 70 09/09/18 10:00 Respiratory Rate 19 09/09/18 11:12 Blood Pressure 106/53 L 09/09/18 10:00 O2 Sat by Pulse Oximetry (%) 98 09/09/18 09:00 Cardiovascular: Yes: S1, S2 Respiratory: Yes: Regular, CTA Bilaterally Gastrointestinal: Yes: Normal Bowel Sounds, Soft Labs: CBC, BMP 09/09/18 08:25 09/09/18 09:30 INR, PTT INR 1.40 (0.83-1.09) H 09/06/18 05:15 Fibrinogen 238.0 mg/dL (238-498) 09/06/18 02:08 Problem List - Problems (1) Neoplasm of brain causing mass effect on adjacent structures Assessment/Plan: Events noted Continue with decadron ns on case Code(s): D49.6 - NEOPLASM OF UNSPECIFIED BEHAVIOR OF BRAIN (2) Elevated troponin Assessment/Plan: Monitor trends cardio Code(s): R74.8 - ABNORMAL LEVELS OF OTHER SERUM ENZYMES (3) Septic shock Assessment/Plan: -must r/o sepsis vs central fever -cultures -abx per id -iv pressors -cultures Microbiology 09/05/18 23:03 Blood Culture - Preliminary Blood - Peripheral Venous NO GROWTH OBTAINED AFTER 72 HOURS, INCUBATION TO CONTINUE FOR 2 DAYS. 09/05/18 22:50 Blood Culture - Preliminary Blood - Peripheral Venous NO GROWTH OBTAINED AFTER 72 HOURS, INCUBATION TO CONTINUE FOR 2 DAYS. -cefepime and flagyl -acute resp failure s/p intubation -CROW- ranl function improved on ivf -keep MAP > 65 Code(s): A41.9 - SEPSIS, UNSPECIFIED ORGANISM; R65.21 - SEVERE SEPSIS WITH SEPTIC SHOCK
[2018-09-09] MEDS: CHLORHEXIDINE GLUCONATE 4% CLEANSER FOR DECOLONIZATION TP SCH ×2 (16:59→22:38)
[2018-09-09] MEDS: LACTATED RINGERS SOLUTION 1,000 ML/1,000 ML INFUS.BAG IV SCH (19:00)
--- NOTE | 2018-09-09 19:49 | PN ---
Progress Note, Physician History of Present Illness: Pt seen and examined at bedside earlier today. She remains in the ICU. She remain on vent. - Current Medication List Current Medications: Active Medications Albuterol/Ipratropium (Duoneb -) 1 amp NEB RQID [facility] Last Admin: 09/09/18 16:03 Dose: 1 amp Chlorhexidine Gluconate (Hibiclens For Decolonization -) 1 applic TP BID [facility] Last Admin: 09/09/18 16:59 Dose: Not Given Chlorhexidine Gluconate (Peridex -) 15 ml MM BID [facility] Dexamethasone Sodium Phosphate (Decadron Injection -) 6 mg IVPUSH Q6H-IV [facility] Last Admin: 09/09/18 15:21 Dose: 6 mg Metronidazole (Flagyl 500mg Premixed Ivpb -) 500 mg in 100 mls @ 100 mls/hr IVPB TID [facility] Last Admin: 09/09/18 15:21 Dose: 100 mls/hr Cefepime HCl 2 gm/ Dextrose 100 mls @ 200 mls/hr IVPB BID [facility]; Protocol Last Admin: 09/09/18 10:18 Dose: 200 mls/hr Lactated Ringer's (Lactated Ringers Solution) 1,000 ml in 1,000 mls @ 50 mls/ hr IV ASDIR [facility] Last Admin: 09/09/18 19:00 Dose: 50 mls/hr Levetiracetam (Keppra Injection -) 500 mg IVPB BID [facility] Last Admin: 09/09/18 09:19 Dose: 500 mg Mupirocin (Bactroban Ointment (For Decolonization) -) 1 applic NS BID [facility] Stop: 09/11/18 09:59 Last Admin: 09/09/18 11:29 Dose: 1 applic Pantoprazole Sodium (Protonix Iv) 40 mg IVPUSH DAILY [facility] Last Admin: 09/09/18 09:20 Dose: 40 mg - Objective Vital Signs: Vital Signs Temperature 97.2 F L 09/09/18 16:00 Pulse Rate 70 09/09/18 16:00 Respiratory Rate 15 09/09/18 18:42 Blood Pressure 122/78 09/09/18 18:00 O2 Sat by Pulse Oximetry (%) 98 09/09/18 12:03 Constitutional: Yes: Calm Eyes: Yes: Conjunctiva Clear Cardiovascular: Yes: S1, S2 Respiratory: Yes: Mechanically Ventilated Gastrointestinal: Yes: Soft Genitourinary: Yes: De [place]a Present Musculoskeletal: Yes: Muscle Weakness Edema: No Neurological: Yes: Lethargy Labs: CBC, BMP 09/09/18 08:25 09/09/18 09:30 INR, PTT INR 1.40 (0.83-1.09) H 09/06/18 05:15 Fibrinogen 238.0 mg/dL (238-498) 09/06/18 02:08 Problem List - Problems (1) CROW (acute kidney injury) Code(s): N17.9 - ACUTE KIDNEY FAILURE, UNSPECIFIED (2) Hypotension Code(s): I95.9 - HYPOTENSION, UNSPECIFIED Assessment/Plan Current Medications Generic Name Dose Route Start Last Admin Trade Name Freq PRN Reason Stop Dose Admin Albuterol/Ipratropium 1 amp 09/06/18 12:00 09/09/18 16:03 Duoneb - NEB 1 amp RQID [facility] Administration Chlorhexidine Gluconate 1 applic 09/09/18 13:30 09/09/18 16:59 Hibiclens For Decolonization - TP Not Given BID [facility] Chlorhexidine Gluconate 15 ml 09/09/18 22:00 Peridex - MM BID [facility] Dexamethasone Sodium Phosphate 6 mg 09/06/18 09:00 09/09/18 15:21 Decadron Injection - IVPUSH 6 mg Q6H-IV [facility] Administration Metronidazole 500 mg in 100 mls @ 100 mls/hr 09/07/18 06:00 09/09/18 15:21 Flagyl 500mg Premixed Ivpb - IVPB 100 mls/hr TID [facility] Administration Cefepime HCl 2 gm/ Dextrose 100 mls @ 200 mls/hr 09/07/18 22:00 09/09/18 10: 18 IVPB 200 mls/hr BID [facility] Administration Protocol Lactated Ringer's 1,000 ml in 1,000 mls @ 50 mls/hr 09/09/18 13:40 09/09/18 19:00 Lactated Ringers Solution IV 50 mls/hr ASDIR [facility] Administration Levetiracetam 500 mg 09/06/18 06:15 09/09/18 09:19 Keppra Injection - IVPB 500 mg BID [facility] Administration Mupirocin 1 applic 09/06/18 10:00 09/09/18 11:29 Bactroban Ointment (For Decolonization) - NS 09/11/18 09:59 1 applic BID [facility] Administration Pantoprazole Sodium 40 mg 09/06/18 10:00 09/09/18 09:20 Protonix Iv IVPUSH 40 mg DAILY [facility] Administration Impression 1. CROW 2. shock 3. hypotension 4. acute resp failure 5. brain masses with midline shift 6. lactic acidosis 7. positive troponins 8. hypernatremia 9. hypokalemia Plan - renal function improving - sodium is improved - pt tolerating diet - decrease fluids and stop them - pt tolerating feeds - replace phos - discussed with ICU team
[2018-09-09] MEDS: CHLORHEXIDINE GLUCONATE 0.12% 15ML CUP MM SCH (22:31)
[2018-09-10] MEDS: DEXAMETHASONE SOD PHOSPHATE 10 MG/1 ML VIAL IVPUSH SCH ×4 (02:09→21:11)
[2018-09-10 06:00] LABS: BASO % 0.2 % (0-2.0); HEMATOCRIT 32.5 % (32.4-45.2); HEMOGLOBIN 10.2 GM/dL (10.7-15.3); LYMPH % 2.6 % (8-40); MCH 28.8 pg (25.7-33.7); MCHC 31.4 g/dl (32.0-36.0); MEAN CELL VOLUME 91.9 fl (80-96); MEAN PLT VOLUME 9.4 fl (7.5-11.1); MONO % 3.2 % (3.8-10.2); PLATELET COUNT 252 K/MM3 (134-434); RBC 3.53 M/mm3 (3.60-5.2); WHITE BLOOD COUNT 17.8 K/mm3 (4.0-10.0)
[2018-09-10 06:39] LABS: ALBUMIN 2.3 g/dl (3.4-5.0); ALK PHOS 69 U/L (45-117); ANION GAP 9 MMOL/L (8-16); BILIRUBIN,TOTAL 1.2 mg/dL (0.2-1); BLOOD UREA NITROGEN 18 mg/dL (7-18); CHLORIDE 104 mmol/L (98-107); CO2 27 mmol/L (21-32); CREATININE 0.5 mg/dL (0.55-1.3); GLUCOSE,RANDOM 198 mg/dL (74-106); MAGNESIUM 1.9 mg/dL (1.8-2.4); PHOSPHOROUS 2.2 mg/dL (2.5-4.9); POTASSIUM 4.2 mmol/L (3.5-5.1); SGOT/AST 157 U/L (15-37); SGPT/ALT 223 U/L (13-61); SODIUM 139 mmol/L (136-145); TOT PROT 5.2 g/dl (6.4-8.2)
[2018-09-10] MEDS ORDERED: NAPH,MB-DB/K PH,MBDB POWDER PACKET PO ONE (07:32)
[2018-09-10] MEDS: ALBUTEROL SO4 2.5/IPRATROPIUM 0.5 INH SOL 3 ML VIAL.NEB. NEB SCH ×4 (07:56→20:10)
--- NOTE | 2018-09-10 10:17 | PN ---
Teaching Attending Note Name of Resident: Barbara Johnson ATTENDING PHYSICIAN STATEMENT I saw and evaluated the patient. I reviewed the resident's note and discussed the case with the resident. I agree with the resident's findings and plan as documented. SUBJECTIVE: Patient seen and examined in the ICU. Remains intubated, AC mode of vent, 40% FiO2. No pressors. Opens eyes to voice command. Able to certified low vision therapist and move her feet when prompted. OBJECTIVE: Intake & Output 09/07/18 09/08/18 09/09/18 09/10/18 23:59 23:59 23:59 23:59 Intake Total 3446 3530 3708 1952 Output Total 454 429 9590 600 Balance 2846 2730 1458 1352 Weight 133 lb 133 lb 154 lb 8.705 oz 152 lb 5.431 oz Last Vital Signs Temp Pulse Resp BP Pulse Ox 97.3 F L 65 16 119/65 100 09/10/18 07:58 09/10/18 07:58 09/10/18 07:58 09/10/18 07:58 09/09/18 21:00 Active Medications Albuterol/Ipratropium (Duoneb -) 1 amp NEB RQID [facility] Last Admin: 09/10/18 07:56 Dose: 1 amp Chlorhexidine Gluconate (Hibiclens For Decolonization -) 1 applic TP BID [facility] Last Admin: 09/09/18 22:38 Dose: 1 applic Chlorhexidine Gluconate (Peridex -) 15 ml MM BID [facility] Last Admin: 09/09/18 22:31 Dose: 15 ml Dexamethasone Sodium Phosphate (Decadron Injection -) 6 mg IVPUSH Q6H-IV [facility] Last Admin: 09/10/18 02:09 Dose: 6 mg Metronidazole (Flagyl 500mg Premixed Ivpb -) 500 mg in 100 mls @ 100 mls/hr IVPB TID [facility] Last Admin: 09/10/18 06:30 Dose: 100 mls/hr Cefepime HCl 2 gm/ Dextrose 100 mls @ 200 mls/hr IVPB BID [facility]; Protocol Last Admin: 09/09/18 22:38 Dose: 200 mls/hr Lactated Ringer's (Lactated Ringers Solution) 1,000 ml in 1,000 mls @ 50 mls/ hr IV ASDIR [facility] Last Admin: 09/09/18 19:00 Dose: 50 mls/hr Levetiracetam (Keppra Injection -) 500 mg IVPB BID [facility] Last Admin: 09/09/18 22:31 Dose: 500 mg Mupirocin (Bactroban Ointment (For Decolonization) -) 1 applic NS BID [facility] Stop: 09/11/18 09:59 Last Admin: 09/09/18 22:30 Dose: 1 applic Pantoprazole Sodium (Protonix Iv) 40 mg IVPUSH DAILY [facility] Last Admin: 09/09/18 09:20 Dose: 40 mg Gen: intubated, opens eyes to command Neck: supple Heart: RRR Lung: decreased breath sounds at the bases Abd: soft, nontender Ext: no edema ASSESSMENT AND PLAN: Multiple Brain Masses with midline shift Acute Hypoxic Respiratory Failure Resolving Shock Acute Kidney Injury Lactic Acidosis +Troponins likely Demand Ischemia - ABX per ID - IVF - continue decadron, empiric antiepileptics - replete lytes - D/C all sedation - DVT/GI prophylaxis - No neurosurgical intervention - Enteral feeds - Wean to extubate Dr Louie Critical care time spent in reviewing chart, evaluating patient and formulating plan 36 min
[2018-09-10] MEDS: levETIRAcetam 500 MG/5 ML INJECTION VIAL IVPB SCH ×2 (10:26→21:13)
[2018-09-10] MEDS: MUPIROCIN 2% TOPICAL OINTMENT FOR DECOLONIZATION NS SCH ×2 (10:27→21:14)
[2018-09-10] MEDS: CHLORHEXIDINE GLUCONATE 0.12% 15ML CUP MM SCH ×2 (10:28→21:13)
[2018-09-10] MEDS: PANTOPRAZOLE SODIUM 40 MG VIAL IVPUSH SCH (10:28)
[2018-09-10] MEDS: CHLORHEXIDINE GLUCONATE 4% CLEANSER FOR DECOLONIZATION TP SCH ×2 (10:29→21:13)
[2018-09-10] MEDS: LACTATED RINGERS SOLUTION 1,000 ML/1,000 ML INFUS.BAG IV SCH ×2 (10:45→21:11)
--- NOTE | 2018-09-10 10:55 | PN ---
Physical Exam: SUBJECTIVE: Patient seen and examined at bed side this morning. Intubated but not sedated. Started on CPAP trial and RSI was < 105, was following commands. Extubated at 9:25 am this morning and doing well on Venti 40 %, saturation is 100 %, BP 121/69, 67 bpm. No acute overnight events. OBJECTIVE: Vital Signs Period Temp Pulse Resp BP Sys/Fried Pulse Ox Last 24 Hr 97.2 F-97.8 F 60-76 12-22 99-130/52-89 98-100 GENERAL: The patient is awake, in no acute distress, venti mask @ 40 %. Central line: Right IJ De Anda in place. HEAD: Normal with no signs of trauma. EYES: No pallor or icterus. ENT: Ears normal, moist mucous membranes. NECK: Supple. LUNGS: B/L decreased breath sounds, no wheezes, no crackles, no accessory muscle use. HEART: Regular rate and rhythm, S1, S2 with systolic murmur. ABDOMEN: Soft, nontender, no organomegaly. EXTREMITIES: 2+ pulses, warm, well-perfused, no edema. NEUROLOGICAL: No facial droops, following commands- wingling toes, opens and closes eyes, non verbal. SKIN: Warm, dry, normal turgor, no rashes or lesions noted Laboratory Results - last 24 hr 09/10/18 09/10/18 09/10/18 05:30 05:30 05:30 WBC 17.8 H RBC 3.53 L Hgb 10.2 L Hct 32.5 MCV 91.9 MCH 28.8 MCHC 31.4 L RDW 13.0 Plt Count 252 MPV 9.4 Absolute Neuts (auto) 16.7 H Neutrophils % 94.0 H Lymphocytes % 2.6 L D Monocytes % 3.2 L Eosinophils % 0.0 Basophils % 0.2 Nucleated RBC % 0 Sodium 139 Potassium 4.2 Chloride 104 Carbon Dioxide 27 Anion Gap 9 BUN 18 Creatinine 0.5 L Creat Clearance w eGFR > 60 Random Glucose 198 H Calcium 9.0 Phosphorus 2.2 L Magnesium 1.9 Total Bilirubin 1.2 H AST 157 H ALT 223 H Alkaline Phosphatase 69 Total Protein 5.2 L Albumin 2.3 L Random Vancomycin 13.8 L Active Medications Generic Name Dose Route Start Last Admin Trade Name Freq PRN Reason Stop Dose Admin Albuterol/Ipratropium 1 amp 09/06/18 12:00 09/10/18 07:56 Duoneb - NEB 1 amp RQID [facility] Administration Chlorhexidine Gluconate 1 applic 09/09/18 13:30 09/09/18 22:38 Hibiclens For Decolonization - TP 1 applic BID [facility] Administration Chlorhexidine Gluconate 15 ml 09/09/18 22:00 09/09/18 22:31 Peridex - MM 15 ml BID [facility] Administration Dexamethasone Sodium Phosphate 6 mg 09/06/18 09:00 09/10/18 02:09 Decadron Injection - IVPUSH 6 mg Q6H-IV [facility] Administration Metronidazole 500 mg in 100 mls @ 100 mls/hr 09/07/18 06:00 09/10/18 06:30 Flagyl 500mg Premixed Ivpb - IVPB 100 mls/hr TID [facility] Administration Cefepime HCl 2 gm/ Dextrose 100 mls @ 200 mls/hr 09/07/18 22:00 09/09/18 22: 38 IVPB 200 mls/hr BID [facility] Administration Protocol Lactated Ringer's 1,000 ml in 1,000 mls @ 50 mls/hr 09/09/18 13:40 09/09/18 19:00 Lactated Ringers Solution IV 50 mls/hr ASDIR [facility] Administration Levetiracetam 500 mg 09/06/18 06:15 09/09/18 22:31 Keppra Injection - IVPB 500 mg BID [facility] Administration Mupirocin 1 applic 09/06/18 10:00 09/09/18 22:30 Bactroban Ointment (For Decolonization) - NS 09/11/18 09:59 1 applic BID [facility] Administration Pantoprazole Sodium 40 mg 09/06/18 10:00 09/09/18 09:20 Protonix Iv IVPUSH 40 mg DAILY [facility] Administration IMAGING: CT chest 09/06 showed: Honeycombing and cystic changes w/ pleural thickening and small calcifications on R lung apex. Bibasal atelectatic changes w/ mild pleural thickening and trace b/l pleural effusion; cannot r/o superimposed infiltrates. No evidence of SBO. CTAP 09/06: unremarkable spleen/liver. GB overdistended w/ tiny stones layering at fundus. Pancreas and adrenal glands both unremarkable. ASSESSMENT/PLAN: Patient is a 78 year old female with significant past medical history of HTN, HLD, OA, Restless leg syndrome was admitted with septic shock and was found to have multiple brain lesions with a midline shift admitted in ICU for further evaluation. Neurology Multiple brain lesions with edema and a midline shift Unknown etiology of the brain lesions- questionable brain mets (unknown primary source) Extubated today at 9:25 am, tolerating well on venti mask, saturation 100 %. Evaluated by Neurology (Dr. Denton) Evaluated by Neuro surg (Dr. Mariee who recommends CT head with iv contrast but patient got extubated today, unstable to go for CT) Continue IV Decadron 6 mg Q6H Continue Keppra 500 BID Alzheimer's Dementia: hold home meds Previous craniotomy: details unknown. Try to get records from PCP. Pulmonary Acute Respiratory Failure likely secondary to septic shock-Improving Extubated today. CXR in AM Cardiology Elevated troponins likely du to demand ischemia, unlikely ACS ECHO: grossly normal LV systolic function with no significant valvular abnormalities Hypertension: came in hypotensive in Septic shock responded to IV fluids GI GERD: Protonix 40 Daily Elevated transaminitis: CT abd/pelvis (09/06) was done which was unremarkable. Now the liver enzymes are trending up, will order bedside USG of abdomen Renal CROW likely secondary to dehydration-Resolved Hypernatremia- Resolved Hypokalemia- Resolved ID Septic Shock- unknown etiology, on admission Temp was 106.1 F (likely central ) Blood cultures/Urine cultures negative CXR 09/10 showed bibasilar changes Continue IV Flagyl and IV Cefepime Vancomycin trough today was 13.8 (readjust the dose) Hematology Normocytic anemia-H/H Stable Prophylaxis For GI: IV Protonix 40 Daily For DVT: SCD's. Heparin not given due to elevated INR, will repeat it tomorrow and probably start on ppx if INR is normal. FEN IV LR @ 50 mls/hr Electrolytes WNL Tube feeds osmolite Dispo: On admission, plan was to transfer to [facility] and was accepted, was awaiting for a bed. Didn't get a call back from [facility]. Patient was evaluated by Neurosurg, patient is not a surgical candidate. Hence will cancel the transfer. Will try calling her family today. Case seen and discussed with Dr. Louie. Visit type - Emergency Visit Emergency Visit: Yes ED Registration Date: 09/06/18 Care time: The patient presented to the Emergency Department on the above date and was hospitalized for further evaluation of their emergent condition. - New Patient This patient is new to me today: No - Critical Care Critical Care patient: Yes Total Critical Care Time (in minutes): 40 Critical Care Statement: The care of this patient involved high complexity decision making to prevent further life threatening deterioration of the patient 's condition and/or to evaluate & treat vital organ system(s) failure or risk of failure. - Discharge Referral Referred to [facility] No
--- NOTE | 2018-09-10 11:44 | PN ---
Progress Note, Physician - Current Medication List Current Medications: Active Medications Albuterol/Ipratropium (Duoneb -) 1 amp NEB RQID [facility] Last Admin: 09/10/18 07:56 Dose: 1 amp Chlorhexidine Gluconate (Hibiclens For Decolonization -) 1 applic TP BID [facility] Last Admin: 09/10/18 10:29 Dose: Not Given Chlorhexidine Gluconate (Peridex -) 15 ml MM BID [facility] Last Admin: 09/10/18 10:28 Dose: 15 ml Dexamethasone Sodium Phosphate (Decadron Injection -) 6 mg IVPUSH Q6H-IV [facility] Last Admin: 09/10/18 10:27 Dose: 6 mg Metronidazole (Flagyl 500mg Premixed Ivpb -) 500 mg in 100 mls @ 100 mls/hr IVPB TID [facility] Last Admin: 09/10/18 06:30 Dose: 100 mls/hr Cefepime HCl 2 gm/ Dextrose 100 mls @ 200 mls/hr IVPB BID [facility]; Protocol Last Admin: 09/09/18 22:38 Dose: 200 mls/hr Lactated Ringer's (Lactated Ringers Solution) 1,000 ml in 1,000 mls @ 50 mls/ hr IV ASDIR [facility] Last Admin: 09/10/18 10:45 Dose: 50 mls/hr Levetiracetam (Keppra Injection -) 500 mg IVPB BID [facility] Last Admin: 09/10/18 10:26 Dose: 500 mg Mupirocin (Bactroban Ointment (For Decolonization) -) 1 applic NS BID [facility] Stop: 09/11/18 09:59 Last Admin: 09/10/18 10:27 Dose: 1 applic Pantoprazole Sodium (Protonix Iv) 40 mg IVPUSH DAILY [facility] Last Admin: 09/10/18 10:28 Dose: 40 mg - Objective Vital Signs: Vital Signs Temperature 97.4 F L 09/10/18 10:00 Pulse Rate 69 09/10/18 10:00 Respiratory Rate 16 09/10/18 10:00 Blood Pressure 129/69 09/10/18 10:00 O2 Sat by Pulse Oximetry (%) 100 09/10/18 09:00 Cardiovascular: Yes: S1, S2 Respiratory: Yes: On Venti-Mask Gastrointestinal: Yes: Normal Bowel Sounds, Soft Labs: CBC, BMP 09/10/18 05:30 09/10/18 05:30 INR, PTT INR 1.40 (0.83-1.09) H 09/06/18 05:15 Fibrinogen 238.0 mg/dL (238-498) 09/06/18 02:08 Problem List - Problems (1) Neoplasm of brain causing mass effect on adjacent structures Assessment/Plan: Events noted Continue with decadron ns on case--follow up Code(s): D49.6 - NEOPLASM OF UNSPECIFIED BEHAVIOR OF BRAIN (2) Elevated troponin Assessment/Plan: Monitor trends cardio Code(s): R74.8 - ABNORMAL LEVELS OF OTHER SERUM ENZYMES (3) Septic shock Assessment/Plan: -must r/o sepsis vs central fever -cultures Microbiology 09/05/18 23:03 Blood - Peripheral Venous Blood Culture - Preliminary NO GROWTH OBTAINED AFTER 96 HOURS, INCUBATION TO CONTINUE FOR 1 DAYS. 09/05/18 22:50 Blood - Peripheral Venous Blood Culture - Preliminary NO GROWTH OBTAINED AFTER 96 HOURS, INCUBATION TO CONTINUE FOR 1 DAYS. 09/05/18 23:02 Urine - Urine [place] Urine Culture - Final NO GROWTH OBTAINED -cefepime and flagyl--ABX per ID Code(s): A41.9 - SEPSIS, UNSPECIFIED ORGANISM; R65.21 - SEVERE SEPSIS WITH SEPTIC SHOCK
[2018-09-10] MEDS ORDERED: PT OWN MED DRAWER 7, Y5N ONE (11:50)
[2018-09-10] MEDS: CEFEPIME 2 GM in DEXTROSE 5%-WATER - 100 ML IVPB SCH ×2 (11:54→21:13)
[2018-09-10 12:28] LABS: ANISOCYTOSIS 2+; MACROCYTOSIS 0; OVALOCYTE 1+; PLATELET ESTIMATE NORMAL
[2018-09-10] MEDS ORDERED: VANCOMYCIN 1 GRAM (PRE-DOCKED) 1,000 MG/250 ML BAG IVPB ONE (13:42)
--- NOTE | 2018-09-10 13:42 | PN ---
Progress Note, Physician History of Present Illness: Extubated Poorly responsive No acute distress WBC 17K on steroids BC (-) - Current Medication List Current Medications: Active Medications Albuterol/Ipratropium (Duoneb -) 1 amp NEB RQID [facility] Last Admin: 09/10/18 12:18 Dose: 1 amp Chlorhexidine Gluconate (Hibiclens For Decolonization -) 1 applic TP BID [facility] Last Admin: 09/10/18 10:29 Dose: Not Given Chlorhexidine Gluconate (Peridex -) 15 ml MM BID [facility] Last Admin: 09/10/18 10:28 Dose: 15 ml Dexamethasone Sodium Phosphate (Decadron Injection -) 6 mg IVPUSH Q6H-IV [facility] Last Admin: 09/10/18 10:27 Dose: 6 mg Metronidazole (Flagyl 500mg Premixed Ivpb -) 500 mg in 100 mls @ 100 mls/hr IVPB TID [facility] Last Admin: 09/10/18 06:30 Dose: 100 mls/hr Cefepime HCl 2 gm/ Dextrose 100 mls @ 200 mls/hr IVPB BID [facility]; Protocol Last Admin: 09/10/18 11:54 Dose: 200 mls/hr Lactated Ringer's (Lactated Ringers Solution) 1,000 ml in 1,000 mls @ 50 mls/ hr IV ASDIR [facility] Last Admin: 09/10/18 10:45 Dose: 50 mls/hr Levetiracetam (Keppra Injection -) 500 mg IVPB BID [facility] Last Admin: 09/10/18 10:26 Dose: 500 mg Mupirocin (Bactroban Ointment (For Decolonization) -) 1 applic NS BID [facility] Stop: 09/11/18 09:59 Last Admin: 09/10/18 10:27 Dose: 1 applic Pantoprazole Sodium (Protonix Iv) 40 mg IVPUSH DAILY [facility] Last Admin: 09/10/18 10:28 Dose: 40 mg - Objective Vital Signs: Vital Signs Temperature 97.4 F L 09/10/18 10:00 Pulse Rate 69 09/10/18 12:00 Respiratory Rate 15 09/10/18 12:00 Blood Pressure 137/76 09/10/18 12:00 O2 Sat by Pulse Oximetry (%) 100 09/10/18 09:00 Constitutional: Yes: No Distress Eyes: Yes: Conjunctiva Clear Cardiovascular: Yes: Regular Rate and Rhythm, S1, S2 Respiratory: Yes: Diminished Gastrointestinal: Yes: Normal Bowel Sounds, Soft. No: Tenderness Edema: No Labs: CBC, BMP 09/10/18 05:30 09/10/18 05:30 INR, PTT INR 1.40 (0.83-1.09) H 09/06/18 05:15 Fibrinogen 238.0 mg/dL (238-498) 09/06/18 02:08 Assessment/Plan Brain masses Respiratory failure S/P extubation Bronchiectasis Fever/ leukocytosis Continue empiric cefepime/ flagyl Redose vancomycin
--- NOTE | 2018-09-10 17:18 | PN ---
Progress Note, Physician History of Present Illness: Pt seen and examined at bedside. She is now extubated. Pt is drowsy. - Current Medication List Current Medications: Active Medications Albuterol/Ipratropium (Duoneb -) 1 amp NEB RQID PENDING SALE TO [facility] Last Admin: 09/10/18 16:49 Dose: 1 amp Chlorhexidine Gluconate (Hibiclens For Decolonization -) 1 applic TP BID PENDING SALE TO [facility] Last Admin: 09/10/18 10:29 Dose: Not Given Chlorhexidine Gluconate (Peridex -) 15 ml MM BID PENDING SALE TO [facility] Last Admin: 09/10/18 10:28 Dose: 15 ml Dexamethasone Sodium Phosphate (Decadron Injection -) 6 mg IVPUSH Q6H-IV PENDING SALE TO [facility] Last Admin: 09/10/18 14:53 Dose: 6 mg Metronidazole (Flagyl 500mg Premixed Ivpb -) 500 mg in 100 mls @ 100 mls/hr IVPB TID PENDING SALE TO [facility] Last Admin: 09/10/18 14:53 Dose: 100 mls/hr Cefepime HCl 2 gm/ Dextrose 100 mls @ 200 mls/hr IVPB BID PENDING SALE TO [facility]; Protocol Last Admin: 09/10/18 11:54 Dose: 200 mls/hr Lactated Ringer's (Lactated Ringers Solution) 1,000 ml in 1,000 mls @ 50 mls/ hr IV ASDIR PENDING SALE TO [facility] Last Admin: 09/10/18 10:45 Dose: 50 mls/hr Levetiracetam (Keppra Injection -) 500 mg IVPB BID PENDING SALE TO [facility] Last Admin: 09/10/18 10:26 Dose: 500 mg Mupirocin (Bactroban Ointment (For Decolonization) -) 1 applic NS BID PENDING SALE TO [facility] Stop: 09/11/18 09:59 Last Admin: 09/10/18 10:27 Dose: 1 applic Pantoprazole Sodium (Protonix Iv) 40 mg IVPUSH DAILY PENDING SALE TO [facility] Last Admin: 09/10/18 10:28 Dose: 40 mg - Objective Vital Signs: Vital Signs Temperature 97.4 F L 09/10/18 10:00 Pulse Rate 69 09/10/18 14:00 Respiratory Rate 15 09/10/18 14:00 Blood Pressure 111/71 09/10/18 14:00 O2 Sat by Pulse Oximetry (%) 100 09/10/18 09:00 Constitutional: Yes: Calm Eyes: Yes: Conjunctiva Clear Cardiovascular: Yes: S1, S2 Respiratory: Yes: On Venti-Mask, Other (bilateral air entry) Gastrointestinal: Yes: Soft Genitourinary: Yes: De Anda Present Musculoskeletal: Yes: Muscle Weakness Edema: LUE: Trace, RUE: Trace Neurological: Yes: Lethargy Labs: CBC, BMP 09/10/18 05:30 09/10/18 05:30 INR, PTT INR 1.40 (0.83-1.09) H 09/06/18 05:15 Fibrinogen 238.0 mg/dL (238-498) 09/06/18 02:08 - ....Imaging Chest X-ray: Report Reviewed Problem List - Problems (1) CROW (acute kidney injury) Code(s): N17.9 - ACUTE KIDNEY FAILURE, UNSPECIFIED (2) Hypotension Code(s): I95.9 - HYPOTENSION, UNSPECIFIED Assessment/Plan Current Medications Generic Name Dose Route Start Last Admin Trade Name Freq PRN Reason Stop Dose Admin Albuterol/Ipratropium 1 amp 09/06/18 12:00 09/10/18 16:49 Duoneb - NEB 1 amp RQID GARRISON Administration Chlorhexidine Gluconate 1 applic 09/09/18 13:30 09/10/18 10:29 Hibiclens For Decolonization - TP Not Given BID GARRISON Chlorhexidine Gluconate 15 ml 09/09/18 22:00 09/10/18 10:28 Peridex - MM 15 ml BID GARRISON Administration Dexamethasone Sodium Phosphate 6 mg 09/06/18 09:00 09/10/18 14:53 Decadron Injection - IVPUSH 6 mg Q6H-IV GARRISON Administration Metronidazole 500 mg in 100 mls @ 100 mls/hr 09/07/18 06:00 09/10/18 14:53 Flagyl 500mg Premixed Ivpb - IVPB 100 mls/hr TID GARRISON Administration Cefepime HCl 2 gm/ Dextrose 100 mls @ 200 mls/hr 09/07/18 22:00 09/10/18 11: 54 IVPB 200 mls/hr BID GARRISON Administration Protocol Lactated Ringer's 1,000 ml in 1,000 mls @ 50 mls/hr 09/09/18 13:40 09/10/18 10:45 Lactated Ringers Solution IV 50 mls/hr ASDIR GARRISON Administration Levetiracetam 500 mg 09/06/18 06:15 09/10/18 10:26 Keppra Injection - IVPB 500 mg BID GARRISON Administration Mupirocin 1 applic 09/06/18 10:00 09/10/18 10:27 Bactroban Ointment (For Decolonization) - NS 09/11/18 09:59 1 applic BID GARRISON Administration Pantoprazole Sodium 40 mg 09/06/18 10:00 09/10/18 10:28 Protonix Iv IVPUSH 40 mg DAILY GARRISON Administration Impression 1. CROW 2. shock 3. hypotension 4. acute resp failure 5. brain masses with midline shift 6. lactic acidosis 7. positive troponins 8. hypernatremia 9. hypokalemia Plan - renal function is improved - can stop fluids once feeds started - monitor pulse ox - sodium is improved - replace phos - discussed with ICU team
[2018-09-11] MEDS ORDERED: INSULIN (NOVOLOG) ASPART 100 UNITS/ML 10ML VIAL ONE (03:16)
[2018-09-11] MEDS: DEXAMETHASONE SOD PHOSPHATE 10 MG/1 ML VIAL IVPUSH SCH ×4 (03:30→21:19)
[2018-09-11 05:49] LABS: HEMATOCRIT 33.2 % (32.4-45.2); HEMOGLOBIN 10.5 GM/dL (10.7-15.3); MCH 28.9 pg (25.7-33.7); MCHC 31.5 g/dl (32.0-36.0); MEAN CELL VOLUME 91.8 fl (80-96); MEAN PLT VOLUME 9.8 fl (7.5-11.1); RBC 3.62 M/mm3 (3.60-5.2); RDW 13.3 % (11.6-15.6)
[2018-09-11 06:27] LABS: BLOOD UREA NITROGEN 16 mg/dL (7-18); CHLORIDE 100 mmol/L (98-107); CO2 30 mmol/L (21-32); CREATININE 0.5 mg/dL (0.55-1.3); GLUCOSE,RANDOM 208 mg/dL (74-106); POTASSIUM 4.1 mmol/L (3.5-5.1); SODIUM 137 mmol/L (136-145)
[2018-09-11 06:28] LABS: ALBUMIN 2.3 g/dl (3.4-5.0); ALK PHOS 80 U/L (45-117); ANION GAP 7 MMOL/L (8-16); BILIRUBIN,TOTAL 0.8 mg/dL (0.2-1); MAGNESIUM 1.9 mg/dL (1.8-2.4); SGOT/AST 119 U/L (15-37); SGPT/ALT 268 U/L (13-61); TOT PROT 5.5 g/dl (6.4-8.2)
[2018-09-11] MEDS: ALBUTEROL SO4 2.5/IPRATROPIUM 0.5 INH SOL 3 ML VIAL.NEB. NEB SCH ×4 (07:25→20:59)
--- NOTE | 2018-09-11 07:45 | PN ---
Physical Exam: SUBJECTIVE: Patient seen and examined at bedside. No acute events overnight. Pt opens eyes spontaneously, but does not follow commands. Nonverbal. Comfortable. OBJECTIVE: Vital Signs Period Temp Pulse Resp BP Sys/Fried Pulse Ox Last 24 Hr 97.3 F-98.6 F 60-74 14-18 102-137/50-76 100 GENERAL: The patient is awake, in no acute distress, venti mask @ 40 %. Opens eyes spontaneously. De Anda in place. HEAD: Normal with no signs of trauma. EYES: No pallor or icterus. ENT: Ears normal, moist mucous membranes. NECK: Supple. LUNGS: B/L decreased breath sounds, no wheezes, no crackles, no accessory muscle use. HEART: Regular rate and rhythm, S1, S2 with systolic murmur. ABDOMEN: Soft, nontender, no organomegaly. EXTREMITIES: 2+ pulses, warm, well-perfused, no edema. NEUROLOGICAL: No facial droops. Opens eyes to verbal stimuli. SKIN: Warm, dry, normal turgor, no rashes or lesions noted CBCD WBC 20.0 K/mm3 (4.0-10.0) H 09/11/18 05:15 RBC 3.62 M/mm3 (3.60-5.2) 09/11/18 05:15 Hgb 10.5 GM/dL (10.7-15.3) L 09/11/18 05:15 Hct 33.2 % (32.4-45.2) 09/11/18 05:15 MCV 91.8 fl (80-96) 09/11/18 05:15 MCHC 31.5 g/dl (32.0-36.0) L 09/11/18 05:15 RDW 13.3 % (11.6-15.6) 09/11/18 05:15 Plt Count 252 K/MM3 (134-434) 09/10/18 05:30 MPV 9.8 fl (7.5-11.1) 09/11/18 05:15 CMP Sodium 137 mmol/L (136-145) 09/11/18 05:15 Potassium 4.1 mmol/L (3.5-5.1) 09/11/18 05:15 Chloride 100 mmol/L (98-107) 09/11/18 05:15 Carbon Dioxide 30 mmol/L (21-32) 09/11/18 05:15 Anion Gap 7 MMOL/L (8-16) L 09/11/18 05:15 BUN 16 mg/dL (7-18) 09/11/18 05:15 Creatinine 0.5 mg/dL (0.55-1.3) L 09/11/18 05:15 Creat Clearance w eGFR > 60 (>60) 09/11/18 05:15 Calcium 9.0 mg/dL (8.5-10.1) 09/11/18 05:15 Total Bilirubin 0.8 mg/dL (0.2-1) 09/11/18 05:15 AST 119 U/L (15-37) H 09/11/18 05:15 ALT 268 U/L (13-61) H 09/11/18 05:15 Alkaline Phosphatase 80 U/L (45-117) 09/11/18 05:15 Total Protein 5.5 g/dl (6.4-8.2) L 09/11/18 05:15 Albumin 2.3 g/dl (3.4-5.0) L 09/11/18 05:15 Active Medications Albuterol/Ipratropium (Duoneb -) 1 amp NEB RQID [facility]ARRISON Last Admin: 09/10/18 20:10 Dose: 1 amp Chlorhexidine Gluconate (Hibiclens For Decolonization -) 1 applic TP BID [facility]ISON Last Admin: 09/10/18 21:13 Dose: 1 applic Chlorhexidine Gluconate (Peridex -) 15 ml MM BID [facility] Last Admin: 09/10/18 21:13 Dose: 15 ml Dexamethasone Sodium Phosphate (Decadron Injection -) 6 mg IVPUSH Q6H-IV [facility] Last Admin: 09/11/18 03:30 Dose: 6 mg Metronidazole (Flagyl 500mg Premixed Ivpb -) 500 mg in 100 mls @ 100 mls/hr IVPB TID [facility] Last Admin: 09/11/18 05:05 Dose: 100 mls/hr Cefepime HCl 2 gm/ Dextrose 100 mls @ 200 mls/hr IVPB BID [facility]; Protocol Last Admin: 09/10/18 21:13 Dose: 200 mls/hr Lactated Ringer's (Lactated Ringers Solution) 1,000 ml in 1,000 mls @ 50 mls/ hr IV ASDIR [facility] Last Admin: 09/10/18 21:11 Dose: Not Given Levetiracetam (Keppra Injection -) 500 mg IVPB BID [facility] Last Admin: 09/10/18 21:13 Dose: 500 mg Mupirocin (Bactroban Ointment (For Decolonization) -) 1 applic NS BID [facility] Stop: 09/11/18 09:59 Last Admin: 09/10/18 21:14 Dose: 1 applic Pantoprazole Sodium (Protonix Iv) 40 mg IVPUSH DAILY [facility] Last Admin: 09/10/18 10:28 Dose: 40 mg IMAGING: CT chest 09/06 showed: Honeycombing and cystic changes w/ pleural thickening and small calcifications on R lung apex. Bibasal atelectatic changes w/ mild pleural thickening and trace b/l pleural effusion; cannot r/o superimposed infiltrates. No evidence of SBO. CTAP 09/06: unremarkable spleen/liver. GB overdistended w/ tiny stones layering at fundus. Pancreas and adrenal glands both unremarkable. ASSESSMENT/PLAN: Patient is a 78 year old female with significant past medical history of HTN, HLD, OA, Restless leg syndrome was admitted with septic shock and was found to have multiple brain lesions with a midline shift admitted in ICU for further evaluation. Neurology #Multiple brain lesions with edema and a midline shift -Unknown etiology of the brain lesions- questionable brain mets (unknown primary source) -Extubated yesterday, tolerating well on venti mask, saturation 100 %. -Spoke to [facility]. Pt's baseline mental status, pt able to speak ([place] language- Tagalog only), however is usually confused due to dementia. She is completely dependent on staff for ADLs, does not walk and is wheelchair bound. She is also on pureed/thick liquid diet. -Evaluated by Neurology (Dr. Denton) -Evaluated by Neuro surg (Dr. Mariee) -Continue IV Decadron 6 mg Q6H -Continue Keppra 500 BID -Per neurosurg rec, will get head CT w/ contrast #Alzheimer's Dementia: hold home meds -Previous craniotomy: details unknown. Try to get records from PCP. Pulmonary #Acute Respiratory Failure likely secondary to septic shock-Improving -Extubated. CXR today showed weak inspiration with apical capping on the R, increased lung markings, R skin fold artifacts and fluids with atelectasis or infiltrate in the L base. -Stable today. Cardiology #Elevated troponins likely due to demand ischemia, unlikely ACS -ECHO: grossly normal LV systolic function with no significant valvular abnormalities #Hypertension: came in hypotensive in Septic shock responded to IV fluids GI #GERD: Protonix 40 Daily #Elevated transaminitis: CT abd/pelvis (09/06) was done which was unremarkable. Now the liver enzymes are trending up, will order bedside USG of abdomen -Abd U/s: Fatty liver vs. hepatocellular disease. R renal simple cyst measuring 4 cm. No gallstones identified. Renal #CROW likely secondary to dehydration-Resolved #Hypernatremia- Resolved #Hypokalemia- Resolved ID #Septic Shock- unknown etiology, on admission Temp was 106.1 F (likely central) -Blood cultures/Urine cultures negative -CXR 09/10 showed bibasilar changes -Continue IV Flagyl and IV Cefepime -Vancomycin trough was 13.8 (readjust the dose) Hematology #Normocytic anemia-H/H Stable Prophylaxis -For GI: IV Protonix 40 Daily -For DVT: INR now wnl. Will start Heparin 5000U SQ TID FEN -IV LR @ 50 mls/hr -Electrolytes WNL -Tube feeds osmolite Dispo: Original transfer to [facility] canceled as pt was evaluated by neurosurg (Dr. Mariee) here, patient is not a surgical candidate; no intervention recommended to be done at this time. Attempted to call daughter, Keith Cowan today . Left message to call back. Visit type - Emergency Visit Emergency Visit: Yes ED Registration Date: 09/06/18 Care time: The patient presented to the Emergency Department on the above date and was hospitalized for further evaluation of their emergent condition. - New Patient This patient is new to me today: No - Critical Care Critical Care patient: Yes Total Critical Care Time (in minutes): 36 Critical Care Statement: The care of this patient involved high complexity decision making to prevent further life threatening deterioration of the patient 's condition and/or to evaluate & treat vital organ system(s) failure or risk of failure.
[2018-09-11 08:43] LABS: PLATELET COUNT 277 K/MM3 (134-434)
--- NOTE | 2018-09-11 08:49 | PN ---
Progress Note (short form) - Note Progress Note: NEUROSURGERY Extubated PE: T max 98.6, following simple commands grasping w R hand HEENT- healed R hemipheric incision; Neck- supple; Cor- RR; Lungs- decreased BS ; Abd- benign; Ext- B UE/LE edema CN- PERRL, difficult to assess fully; Motor- R UE slight withdrawal to pain, no L UE movement; R LE movement to pain >> L; Sensation- difficult to assess; DTR - hyporeflexic, B toes upgoing WBC 20, Hgb 10..5 Blood cultures negative x2 Head CT- R parietal > frontal dural-based isodense mass with mass effect, edema , and R to L shift. Prior R craniectomy and cranioplasty R parietal > frontal isodense possibly dural based lesions possibly invasive/ malignant meningiomas, with edema/mass effect Sepsis on broad spectrum iv abx Keppra for sz prophylaxis Surgery for brain lesions is not recommended given poor baseline neurological and medical condition including sepsis, and unlikelihood of tolerating general anesthesia Comfort care D/w ICU team
[2018-09-11 09:07] LABS: INR 0.91 (0.83-1.09); PROTHROMBIN TIME (PATIENT) 10.7 SEC (9.7-13.0)
[2018-09-11] MEDS: levETIRAcetam 500 MG/5 ML INJECTION VIAL IVPB SCH ×2 (09:29→21:20)
[2018-09-11] MEDS ORDERED: PT OWN MED DRAWER 7, Y5N ONE ×2 (09:30→16:58)
[2018-09-11] MEDS: CEFEPIME 2 GM in DEXTROSE 5%-WATER - 100 ML IVPB SCH ×2 (09:30→21:20)
[2018-09-11] MEDS: PANTOPRAZOLE SODIUM 40 MG VIAL IVPUSH SCH (09:31)
[2018-09-11] MEDS: CHLORHEXIDINE GLUCONATE 0.12% 15ML CUP MM SCH (09:31)
[2018-09-11] MEDS: CHLORHEXIDINE GLUCONATE 4% CLEANSER FOR DECOLONIZATION TP SCH (10:10)
[2018-09-11] MEDS ORDERED: LACTATED RINGERS SOLUTION 1,000 ML/1,000 ML INFUS.BAG IV SCH (11:30)
--- NOTE | 2018-09-11 11:32 | CONSULT ---
Admitting History and Physical - Admission History of Present Illness: Per EMR- Patient is a 78 year old female with a PMHx of HTN, HLD, Dementia, GERD, OA who was BIBEMS from the care home for altered mental status and unresponsiveness. According to medical records, patient was in her usual state of health in the care home and in the evening she became unresponsive. In the ED patient was found to be tachycardic, tachypneic, desaturated to the 80's with a fever of 106.2. Patient was eventually intubated and transferred to the ICU. CT of the head was done and showed multiple masses with brain edema, mass effect and 6mm shift from the mdiline with effacement of the right ventricle. Extubated 09/10 This is my first consult with this pt. 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 History of Recent Travel: No History - Admission Reason For Visit: SEPTIC SHOCK - Diagnostics X-ray: Report Reviewed CT Scan: Report Reviewed MRI: Report Reviewed - General Mental Status: Awake and Alert Attention: Distractible, Mild Impairment Ability to Follow Directions: Fair (simple whole body inconsistently in Stateless eg say "ah", squeeze my hand/let go, stick out tongue.) - Hearing Hearing: Functional Hearing Aide: (unable to access) Speech Evaluation - Communication Primary Language: [facility] Secondary Language: ANGOLAN (baseline function?) Communication: Yes: Non-Communicable Oral Expression Ability: Yes: Non-Verbal (said "ah" upon command-APHONIC. Extubated yesterday. Baseline?) - Speech Characteristics Voice Loudness: Moderately Soft/Quiet Voice Phonatory-based Quality: Yes: Weak, Dysphonia - Swallow Evaluation/Bedside Assessment Current Nutritional Intake: NPO, NG Tube Dentition: Yes: Missing Teeth Laryngeal Elevation: Impaired Laryngeal Movement: Labored,delay initiation Rate of Intake: Slow/Holding Labial Seal: WFL Chewing: Impaired Oral Prep Time: Increased Pocketing: Present Bilaterally Coughing/Throat Clear: No Recommendations - Speech Evaluation, Impression/Plan Impression: Pt follows simple whole body inconsistently in Stateless eg say "ah", squeeze my hand/let go, stick out tongue. Aphonia, extubated yesterday, baseline vocal quality? Verbal premorbidly? Stateless? Accepted puree, with oral holding, weak swallow- not yet functional. Oral cavity needed to be suctioned of residue. - Disposition Discharge to: To be Determined - Dysphagia Impressions/Plan Swallowing Skills: Impaired Dysphagia Impressions: Suspect Aspiration *Silent aspiration: cannot be R/O at bedside Dysphagia Treatment Plan: Other (To follow for re-evaluation as voice/swallow improves.) - Recommendations Diet Consistency: Other (NGT)
--- NOTE | 2018-09-11 11:53 | PN ---
Teaching Attending Note Name of Resident: Naomi Manuel ATTENDING PHYSICIAN STATEMENT I saw and evaluated the patient. I reviewed the resident's note and discussed the case with the resident. I agree with the resident's findings and plan as documented. SUBJECTIVE: Pt seen and examined in the ICU. Remains extubated on ventimask 40%. Opens eyes , intermittently following commands per staff. OBJECTIVE: Vital Signs Period Temp Pulse Resp BP Sys/Fried Pulse Ox Last 24 Hr 97.2 F-98.6 F 60-74 08-20 102-137/50-76 Intake & Output 09/08/18 09/09/18 09/10/18 09/11/18 23:59 23:59 23:59 23:59 Intake Total 3530 3708 3202 1580 Output Total 800 2250 2750 Balance 2730 9717 554 7384 Weight 60.328 kg 70.1 kg 69.1 kg 69.626 kg Gen: extubated, awake Heart: RRR Lung: decreased breath sounds at the bases Abd: soft, nontender Ext: no edema CBC, BMP 09/11/18 05:15 09/11/18 05:15 Active Medications Albuterol/Ipratropium (Duoneb -) 1 amp NEB RQID GARRISON Dexamethasone Sodium Phosphate (Decadron Injection -) 6 mg IVPUSH Q6H-IV GARRISON Heparin Sodium (Porcine) (Heparin -) 5,000 unit SQ TID GARRISON Cefepime HCl 2 gm/ Dextrose 100 mls @ 200 mls/hr IVPB BID GARRISON; Protocol Metronidazole (Flagyl 500mg Premixed Ivpb -) 500 mg in 100 mls @ 100 mls/hr IVPB Q8H-IV GARRISON Lactated Ringer's (Lactated Ringers Solution) 1,000 ml in 1,000 mls @ 50 mls/ hr IV ASDIR GARRISON Levetiracetam (Keppra Injection -) 500 mg IVPB BID GARRISON Pantoprazole Sodium (Protonix Iv) 40 mg IVPUSH DAILY GARRISON ASSESSMENT AND PLAN: Multiple Brain Masses with midline shift s/p Acute Hypoxic Respiratory Failure Shock resolved Acute Kidney Injury improving Lactic Acidosis resolved +Troponins likely Demand Ischemia - complete empiric antibiotics - continue decadron, empiric antiepileptics - aspiration precautions - taper Fio2 to keep SpO2 >90% - swallow eval - DVT/GI prophylaxis - can monitor on floor
--- NOTE | 2018-09-11 13:13 | PN ---
Progress Note (short form) - Note Progress Note: now extubated on nasal canulla Vital Signs Period Temp Pulse Resp BP Sys/Fried Pulse Ox Last 24 Hr 97.2 F-98.6 F 60-74 11-18 102-130/50-74 100 cor-rrr lungs clear abd soft,nt ext trace edema CBC, BMP 09/11/18 05:15 09/11/18 05:15 Microbiology 09/05/18 23:03 Blood - Peripheral Venous Blood Culture - Final NO GROWTH AFTER 5 DAYS INCUBATION 09/05/18 22:50 Blood - Peripheral Venous Blood Culture - Final NO GROWTH AFTER 5 DAYS INCUBATION 09/05/18 23:02 Urine - Urine De Anda Urine Culture - Final NO GROWTH OBTAINED cxray basilar infiltrates Current Medications Albuterol/Ipratropium (Duoneb -) 1 amp NEB RQID GARRISON Dexamethasone Sodium Phosphate (Decadron Injection -) 6 mg IVPUSH Q6H-IV GARRISON Heparin Sodium (Porcine) (Heparin -) 5,000 unit SQ TID GARRISON Cefepime HCl 2 gm/ Dextrose 100 mls @ 200 mls/hr IVPB BID [facility]ISON; Protocol Metronidazole (Flagyl 500mg Premixed Ivpb -) 500 mg in 100 mls @ 100 mls/hr IVPB Q8H-IV GARRISON Lactated Ringer's (Lactated Ringers Solution) 1,000 ml in 1,000 mls @ 50 mls/ hr IV ASDIR GARRISON Levetiracetam (Keppra Injection -) 500 mg IVPB BID GARRISON Pantoprazole Sodium (Protonix Iv) 40 mg IVPUSH DAILY GARRISON a/p fever/leukocytosis hypotension resolved crow resolved brain masses with edema now extubated continue cefepime/flagyl- ?aspiration- dose adjusted for resolving crow awaiting repeat ct scan with contrast of the head Problem List - Problems (1) Septic shock Code(s): A41.9 - SEPSIS, UNSPECIFIED ORGANISM; R65.21 - SEVERE SEPSIS WITH SEPTIC SHOCK (2) Fever Code(s): R50.9 - FEVER, UNSPECIFIED (3) Hypotension Code(s): I95.9 - HYPOTENSION, UNSPECIFIED (4) 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
--- NOTE | 2018-09-11 13:50 | PN ---
Progress Note, Physician Chief Complaint: patient seen and examined s/p extubation FAUSTINO noted seen donfidelia recommend brain surgery at this time - possible comfort care - Current Medication List Current Medications: Active Medications Albuterol/Ipratropium (Duoneb -) 1 amp NEB RQID GARRISON Dexamethasone Sodium Phosphate (Decadron Injection -) 6 mg IVPUSH Q6H-IV GARRISON Heparin Sodium (Porcine) (Heparin -) 5,000 unit SQ TID GARRISON Cefepime HCl 2 gm/ Dextrose 100 mls @ 200 mls/hr IVPB BID GARRISON; Protocol Metronidazole (Flagyl 500mg Premixed Ivpb -) 500 mg in 100 mls @ 100 mls/hr IVPB Q8H-IV GARRISON Lactated Ringer's (Lactated Ringers Solution) 1,000 ml in 1,000 mls @ 50 mls/ hr IV ASDIR G[facility]ISON Levetiracetam (Keppra Injection -) 500 mg IVPB BID GARRISON Pantoprazole Sodium (Protonix Iv) 40 mg IVPUSH DAILY GARRISON - Objective Vital Signs: Vital Signs Temperature 97.2 F L 09/11/18 10:00 Pulse Rate 72 09/11/18 12:00 Respiratory Rate 13 09/11/18 12:00 Blood Pressure 113/60 09/11/18 12:00 O2 Sat by Pulse Oximetry (%) 100 09/11/18 12:00 Constitutional: Yes: Calm Cardiovascular: Yes: Regular Rate and Rhythm, S1, S2 Respiratory: Yes: Diminished Gastrointestinal: Yes: Normal Bowel Sounds, Soft Labs: CBC, BMP 09/11/18 05:15 09/11/18 05:15 INR, PTT INR 0.91 (0.83-1.09) 09/11/18 05:15 Fibrinogen 238.0 mg/dL (238-498) 09/06/18 02:08 Problem List - Problems (1) Hypotension Assessment/Plan: iv pressors- off cultures no growth cefepime and flagyl acute resp failure s/p intubation now extubated CROW- ranl function improved on ivf keep MAP > 65 Microbiology 09/05/18 23:02 Urine - Urine De Anda Urine Culture - Final NO GROWTH OBTAINED 09/05/18 23:03 Blood - Peripheral Venous Blood Culture - Preliminary NO GROWTH OBTAINED AFTER 24 HOURS, INCUBATION TO CONTINUE FOR 4 DAYS. 09/05/18 22:50 Blood - Peripheral Venous Blood Culture - Preliminary NO GROWTH OBTAINED AFTER 24 HOURS, INCUBATION TO CONTINUE FOR 4 DAYS. Code(s): I95.9 - HYPOTENSION, UNSPECIFIED (2) Neoplasm of brain causing mass effect on adjacent structures Assessment/Plan: trevor HARMON consulted do not recommend surgery at this time repeat CT head pending Code(s): D49.6 - NEOPLASM OF UNSPECIFIED BEHAVIOR OF BRAIN (3) Elevated troponin Assessment/Plan: troponin trending down,cardiology consulted echo done Code(s): R74.8 - ABNORMAL LEVELS OF OTHER SERUM ENZYMES
[2018-09-11] MEDS: HEPARIN NA (PORCINE) 5,000 UNITS/ML 1ML VIAL SQ SCH ×2 (14:45→21:19)
--- NOTE | 2018-09-11 16:17 | PN ---
Progress Note, Physician History of Present Illness: Pt seen and examined at bedside. She remains in ICU. She is extubated. She is not verbal. - Current Medication List Current Medications: Active Medications Albuterol/Ipratropium (Duoneb -) 1 amp NEB RQID [facility] Last Admin: 09/11/18 11:20 Dose: 1 amp Dexamethasone Sodium Phosphate (Decadron Injection -) 6 mg IVPUSH Q6H-IV [facility] Last Admin: 09/11/18 14:45 Dose: 6 mg Heparin Sodium (Porcine) (Heparin -) 5,000 unit SQ TID [facility] Last Admin: 09/11/18 14:45 Dose: 5,000 unit Cefepime HCl 2 gm/ Dextrose 100 mls @ 200 mls/hr IVPB BID [facility]; Protocol Metronidazole (Flagyl 500mg Premixed Ivpb -) 500 mg in 100 mls @ 100 mls/hr IVPB Q8H-IV [facility] Lactated Ringer's (Lactated Ringers Solution) 1,000 ml in 1,000 mls @ 50 mls/ hr IV ASDIR [facility] Last Admin: 09/11/18 14:41 Dose: 50 mls/hr Levetiracetam (Keppra Injection -) 500 mg IVPB BID [facility] Pantoprazole Sodium (Protonix Iv) 40 mg IVPUSH DAILY [facility] - Objective Vital Signs: Vital Signs Temperature 97.3 F L 09/11/18 14:00 Pulse Rate 72 09/11/18 14:00 Respiratory Rate 16 09/11/18 14:00 Blood Pressure 113/60 09/11/18 14:00 O2 Sat by Pulse Oximetry (%) 100 09/11/18 12:00 Constitutional: Yes: Calm Eyes: Yes: Conjunctiva Clear HENT: Yes: Atraumatic Neck: Yes: Supple Cardiovascular: Yes: S1, S2 Respiratory: Yes: On Venti-Mask Gastrointestinal: Yes: Soft Genitourinary: Yes: [place] Present Musculoskeletal: Yes: Muscle Weakness Edema: No Neurological: Yes: Lethargy Labs: CBC, BMP 09/11/18 05:15 09/11/18 05:15 INR, PTT INR 0.91 (0.83-1.09) 09/11/18 05:15 Fibrinogen 238.0 mg/dL (238-498) 09/06/18 02:08 Problem List - Problems (1) CROW (acute kidney injury) Code(s): N17.9 - ACUTE KIDNEY FAILURE, UNSPECIFIED (2) Hypotension Code(s): I95.9 - HYPOTENSION, UNSPECIFIED Assessment/Plan Current Medications Generic Name Dose Route Start Last Admin Trade Name Freq PRN Reason Stop Dose Admin Albuterol/Ipratropium 1 amp 09/11/18 12:00 09/11/18 11:20 Duoneb - NEB 1 amp RQID [facility] Administration Dexamethasone Sodium Phosphate 6 mg 09/11/18 15:00 09/11/18 14:45 Decadron Injection - IVPUSH 6 mg Q6H-IV [facility] Administration Heparin Sodium (Porcine) 5,000 unit 09/11/18 14:00 09/11/18 14:45 Heparin - SQ 5,000 unit TID [facility] Administration Cefepime HCl 2 gm/ Dextrose 100 mls @ 200 mls/hr 09/11/18 22:00 IVPB BID [facility] Protocol Metronidazole 500 mg in 100 mls @ 100 mls/hr 09/11/18 18:00 Flagyl 500mg Premixed Ivpb - IVPB Q8H-IV [facility] Lactated Ringer's 1,000 ml in 1,000 mls @ 50 mls/hr 09/11/18 11:30 09/11/18 14:41 Lactated Ringers Solution IV 50 mls/hr ASDIR [facility] Administration Levetiracetam 500 mg 09/11/18 22:00 Keppra Injection - IVPB BID [facility] Pantoprazole Sodium 40 mg 09/12/18 10:00 Protonix Iv IVPUSH DAILY [facility] Impression 1. CROW 2. shock 3. hypotension 4. acute resp failure 5. brain masses with midline shift 6. lactic acidosis 7. positive troponins 8. hypernatremia 9. hypokalemia Plan - can d/c fluids as she is on feeds - replace phos - monitor pulse ox - sodium is improved - discussed with ICU team
[2018-09-11] MEDS: NAPH,MB-DB/K PH,MBDB POWDER PACKET PO SCH ×2 (17:18→21:20)
[2018-09-12] MEDS: DEXAMETHASONE SOD PHOSPHATE 10 MG/1 ML VIAL IVPUSH SCH ×4 (03:00→17:08)
[2018-09-12 05:37] LABS: HEMATOCRIT 31.3 % (32.4-45.2); HEMOGLOBIN 9.9 GM/dL (10.7-15.3); MCHC 31.8 g/dl (32.0-36.0); MEAN CELL VOLUME 91.2 fl (80-96); MEAN PLT VOLUME 9.5 fl (7.5-11.1); PLATELET COUNT 283 K/MM3 (134-434); RBC 3.43 M/mm3 (3.60-5.2); RDW 12.8 % (11.6-15.6); WHITE BLOOD COUNT 17.5 K/mm3 (4.0-10.0)
[2018-09-12] MEDS: NAPH,MB-DB/K PH,MBDB POWDER PACKET PO SCH ×3 (06:08→21:01)
[2018-09-12] MEDS: HEPARIN NA (PORCINE) 5,000 UNITS/ML 1ML VIAL SQ SCH ×3 (06:09→21:01)
[2018-09-12 06:10] LABS: ALBUMIN 2.1 g/dl (3.4-5.0); ALK PHOS 85 U/L (45-117); ANION GAP 7 MMOL/L (8-16); BILIRUBIN,TOTAL 0.7 mg/dL (0.2-1); BLOOD UREA NITROGEN 21 mg/dL (7-18); CALCIUM 8.8 mg/dL (8.5-10.1); CHLORIDE 100 mmol/L (98-107); CO2 28 mmol/L (21-32); CREATININE 0.5 mg/dL (0.55-1.3); GLUCOSE,RANDOM 241 mg/dL (74-106); MAGNESIUM 1.8 mg/dL (1.8-2.4); PHOSPHOROUS 2.1 mg/dL (2.5-4.9); POTASSIUM 4.5 mmol/L (3.5-5.1); SGOT/AST 69 U/L (15-37); SGPT/ALT 220 U/L (13-61); SODIUM 135 mmol/L (136-145); TOT PROT 4.9 g/dl (6.4-8.2)
[2018-09-12] MEDS: ALBUTEROL SO4 2.5/IPRATROPIUM 0.5 INH SOL 3 ML VIAL.NEB. NEB SCH ×4 (07:20→20:30)
--- NOTE | 2018-09-12 07:26 | PN ---
Physical Exam: SUBJECTIVE: Patient seen and examined at bedside. No acute events overnight. OBJECTIVE: Vital Signs Period Temp Pulse Resp BP Sys/Fried Pulse Ox Last 24 Hr 97.0 F-98.4 F 61-72 -18 104-130/57-81 100-100 GENERAL: Awake, on NC. HEAD: Normal with no signs of trauma. EYES: No pallor or icterus. ENT: Ears normal, moist mucous membranes. NG tube in place. NECK: Supple. LUNGS: B/L decreased breath sounds, no wheezes, no crackles, no accessory muscle use. HEART: Regular rate and rhythm, S1, S2 with systolic murmur. ABDOMEN: Soft, nontender, no organomegaly. EXTREMITIES: 2+ pulses, warm, well-perfused, no edema. NEUROLOGICAL: No facial droops. Opens eyes to verbal stimuli. 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) SKIN: Warm, dry, normal turgor, no rashes or lesions noted CBCD WBC 17.5 K/mm3 (4.0-10.0) H 09/12/18 05:15 RBC 3.43 M/mm3 (3.60-5.2) L 09/12/18 05:15 Hgb 9.9 GM/dL (10.7-15.3) L 09/12/18 05:15 Hct 31.3 % (32.4-45.2) L 09/12/18 05:15 MCV 91.2 fl (80-96) 09/12/18 05:15 MCHC 31.8 g/dl (32.0-36.0) L 09/12/18 05:15 RDW 12.8 % (11.6-15.6) 09/12/18 05:15 Plt Count 283 K/MM3 (134-434) 09/12/18 05:15 MPV 9.5 fl (7.5-11.1) 09/12/18 05:15 CMP Sodium 135 mmol/L (136-145) L 09/12/18 05:15 Potassium 4.5 mmol/L (3.5-5.1) 09/12/18 05:15 Chloride 100 mmol/L (98-107) 09/12/18 05:15 Carbon Dioxide 28 mmol/L (21-32) 09/12/18 05:15 Anion Gap 7 MMOL/L (8-16) L 09/12/18 05:15 BUN 21 mg/dL (7-18) H 09/12/18 05:15 Creatinine 0.5 mg/dL (0.55-1.3) L 09/12/18 05:15 Creat Clearance w eGFR > 60 (>60) 09/12/18 05:15 Calcium 8.8 mg/dL (8.5-10.1) 09/12/18 05:15 Total Bilirubin 0.7 mg/dL (0.2-1) 09/12/18 05:15 AST 69 U/L (15-37) H 09/12/18 05:15 ALT 220 U/L (13-61) H 09/12/18 05:15 Alkaline Phosphatase 85 U/L (45-117) 09/12/18 05:15 Total Protein 4.9 g/dl (6.4-8.2) L 09/12/18 05:15 Albumin 2.1 g/dl (3.4-5.0) L 09/12/18 05:15 Active Medications Albuterol/Ipratropium (Duoneb -) 1 amp NEB RQID [facility] Last Admin: 09/11/18 20:59 Dose: 1 amp Dexamethasone Sodium Phosphate (Decadron Injection -) 6 mg IVPUSH Q6H-IV [facility] Last Admin: 09/12/18 03:00 Dose: 6 mg Heparin Sodium (Porcine) (Heparin -) 5,000 unit SQ TID [facility] Last Admin: 09/12/18 06:09 Dose: 5,000 unit Cefepime HCl 2 gm/ Dextrose 100 mls @ 200 mls/hr IVPB BID [facility]; Protocol Last Admin: 09/11/18 21:20 Dose: 200 mls/hr Metronidazole (Flagyl 500mg Premixed Ivpb -) 500 mg in 100 mls @ 100 mls/hr IVPB Q8H-IV [facility] Last Admin: 09/12/18 02:36 Dose: 100 mls/hr Levetiracetam (Keppra Injection -) 500 mg IVPB BID [facility] Last Admin: 09/11/18 21:20 Dose: 500 mg Pantoprazole Sodium (Protonix Iv) 40 mg IVPUSH DAILY [facility] Potassium Phos/Sodium Phos (Phos-Nak Packet -) 1 packet PO TID [facility] Stop: 09/13/18 06:01 Last Admin: 09/12/18 06:08 Dose: 1 packet ASSESSMENT/PLAN: IMAGING: CT chest 09/06 showed: Honeycombing and cystic changes w/ pleural thickening and small calcifications on R lung apex. Bibasal atelectatic changes w/ mild pleural thickening and trace b/l pleural effusion; cannot r/o superimposed infiltrates. No evidence of SBO. CTAP 09/06: unremarkable spleen/liver. GB overdistended w/ tiny stones layering at fundus. Pancreas and adrenal glands both unremarkable. ASSESSMENT/PLAN: Patient is a 78 year old female with significant past medical history of HTN, HLD, OA, Restless leg syndrome was admitted with septic shock and was found to have multiple brain lesions with a midline shift admitted in ICU for further evaluation. Neurology #Multiple brain lesions with edema and a midline shift -Unknown etiology of the brain lesions- questionable brain mets (unknown primary source) -Extubated yesterday, tolerating well on venti mask, saturation 100 %. -Spoke to [facility]. Pt's baseline mental status, pt able to speak ([place] language- [place] only), however is usually confused due to dementia. She is completely dependent on staff for ADLs, does not walk and is wheelchair bound. She is also on pureed/thick liquid diet. -Evaluated by Neurology (Dr. Denton) -Evaluated by Neuro surg (Dr. Mariee) -Taper IV Decadron 6 mg Q6H ---> 4mg Q6H -Continue Keppra 500 BID -No further imaging indicated as it would not change current management since surgical intervention is not recommended at this time. #Alzheimer's Dementia: hold home meds -Previous craniotomy: details unknown. Try to get records from PCP. Pulmonary #Acute Respiratory Failure likely secondary to septic shock-Improving -Extubated. CXR today showed weak inspiration with apical capping on the R, increased lung markings, R skin fold artifacts and fluids with atelectasis or infiltrate in the L base. -Stable today. Cardiology #Elevated troponins likely due to demand ischemia, unlikely ACS -ECHO: grossly normal LV systolic function with no significant valvular abnormalities #Hypertension: came in hypotensive in Septic shock responded to IV fluids GI #GERD: Protonix 40 Daily #Elevated transaminitis: CT abd/pelvis (09/06) was done which was unremarkable. Now the liver enzymes are trending up, will order bedside USG of abdomen -Abd U/s: Fatty liver vs. hepatocellular disease. R renal simple cyst measuring 4 cm. No gallstones identified. Renal #CROW likely secondary to dehydration-Resolved #Hypernatremia- Resolved #Hypokalemia- Resolved ID #Septic Shock- unknown etiology, on admission Temp was 106.1 F (likely central) -Blood cultures/Urine cultures negative -CXR 09/10 showed bibasilar changes -Continue IV Flagyl and IV Cefepime -Vancomycin trough was 13.8 (readjust the dose) Hematology #Normocytic anemia-H/H Stable Prophylaxis -For GI: IV Protonix 40 Daily -For DVT: INR now wnl. Will start Heparin 5000U SQ TID FEN -IV LR @ 50 mls/hr -Electrolytes WNL -Tube feeds osmolite Dispo: Original transfer to [facility] canceled as pt was evaluated by neurosurg (Dr. Mariee) here, patient is not a surgical candidate; no intervention recommended to be done at this time. Attempted to call daughter, Keith Cowan . Left message to call back. Visit type - Emergency Visit Emergency Visit: Yes ED Registration Date: 09/06/18 Care time: The patient presented to the Emergency Department on the above date and was hospitalized for further evaluation of their emergent condition. - New Patient This patient is new to me today: No - Critical Care Critical Care patient: Yes Total Critical Care Time (in minutes): 36 Critical Care Statement: The care of this patient involved high complexity decision making to prevent further life threatening deterioration of the patient 's condition and/or to evaluate & treat vital organ system(s) failure or risk of failure.
--- NOTE | 2018-09-12 08:17 | PN ---
Progress Note (short form) - Note Progress Note: NEUROSURGERY Remains extubated PE: AF, VSS, following simple commands grasping w R hand only, not doing much else HEENT- healed R hemispheric incision; Neck- supple; Cor- RR; Lungs- decreased BS ; Abd- benign; Ext- B UE/LE edema CN- PERRL, difficult to assess fully; Motor- R UE more movement, no L UE movement; R LE movement to pain >> L; Sensation- difficult to assess; DTR- hyporeflexic, B toes upgoing R > L WBC 17.5 Blood cultures negative x2 Head CT- R parietal > frontal dural-based isodense mass with mass effect, edema , and R to L shift. Prior R craniectomy and cranioplasty R parietal > frontal isodense possibly dural based lesions possibly invasive/ malignant meningiomas, with edema/mass effect Sepsis on Cefepime and Flagyl Keppra for sz prophylaxis Surgery for brain lesions is not recommended given poor baseline neurological and medical condition including sepsis, and unlikelihood of tolerating general anesthesia OK for CT head with contrast from ID standpoint but of limited value from neurosurgical standpoint given the above Comfort care D/w ICU team
--- NOTE | 2018-09-12 09:36 | PN ---
Progress Note, Physician - Current Medication List Current Medications: Active Medications Albuterol/Ipratropium (Duoneb -) 1 amp NEB RQID [facility] Last Admin: 09/12/18 07:20 Dose: 1 amp Dexamethasone Sodium Phosphate (Decadron Injection -) 6 mg IVPUSH Q6H-IV [facility] Last Admin: 09/12/18 07:59 Dose: 6 mg Heparin Sodium (Porcine) (Heparin -) 5,000 unit SQ TID [facility] Last Admin: 09/12/18 06:09 Dose: 5,000 unit Cefepime HCl 2 gm/ Dextrose 100 mls @ 200 mls/hr IVPB BID [facility]; Protocol Last Admin: 09/11/18 21:20 Dose: 200 mls/hr Metronidazole (Flagyl 500mg Premixed Ivpb -) 500 mg in 100 mls @ 100 mls/hr IVPB Q8H-IV [facility] Last Admin: 09/12/18 02:36 Dose: 100 mls/hr Levetiracetam (Keppra Injection -) 500 mg IVPB BID [facility] Last Admin: 09/11/18 21:20 Dose: 500 mg Pantoprazole Sodium (Protonix Iv) 40 mg IVPUSH DAILY [facility] Potassium Phos/Sodium Phos (Phos-Nak Packet -) 1 packet PO TID [facility] Stop: 09/13/18 06:01 Last Admin: 09/12/18 06:08 Dose: 1 packet - Objective Vital Signs: Vital Signs Temperature 96.9 F L 09/12/18 08:00 Pulse Rate 70 09/12/18 08:00 Respiratory Rate 18 09/12/18 09:00 Blood Pressure 95/71 09/12/18 08:00 O2 Sat by Pulse Oximetry (%) 100 09/12/18 09:00 Cardiovascular: Yes: S1, S2 Respiratory: Yes: Diminished Gastrointestinal: Yes: Normal Bowel Sounds, Soft Labs: CBC, BMP 09/12/18 05:15 09/12/18 05:15 INR, PTT INR 0.91 (0.83-1.09) 09/11/18 05:15 Fibrinogen 238.0 mg/dL (238-498) 09/06/18 02:08 Problem List - Problems (1) Neoplasm of brain causing mass effect on adjacent structures Code(s): D49.6 - NEOPLASM OF UNSPECIFIED BEHAVIOR OF BRAIN (2) Elevated troponin Code(s): R74.8 - ABNORMAL LEVELS OF OTHER SERUM ENZYMES (3) Septic shock Code(s): A41.9 - SEPSIS, UNSPECIFIED ORGANISM; R65.21 - SEVERE SEPSIS WITH SEPTIC SHOCK Assessment/Plan - Problems (1) Hypotension Assessment/Plan: iv pressors- off cultures no growth cefepime and flagyl acute resp failure s/p intubation now extubated CROW- ranl function improved on ivf keep MAP > 65 Microbiology 09/05/18 23:02 Urine - Urine De Anda Urine Culture - Final NO GROWTH OBTAINED 09/05/18 23:03 Blood - Peripheral Venous Blood Culture - Preliminary NO GROWTH OBTAINED AFTER 24 HOURS, INCUBATION TO CONTINUE FOR 4 DAYS. 09/05/18 22:50 Blood - Peripheral Venous Blood Culture - Preliminary NO GROWTH OBTAINED AFTER 24 HOURS, INCUBATION TO CONTINUE FOR 4 DAYS. Code(s): I95.9 - HYPOTENSION, UNSPECIFIED (2) Neoplasm of brain causing mass effect on adjacent structures Assessment/Plan: carlos and rasheed HARMON consulted do not recommend surgery at this time repeat CT head pending Code(s): D49.6 - NEOPLASM OF UNSPECIFIED BEHAVIOR OF BRAIN (3) Elevated troponin Assessment/Plan: troponin trending down,cardiology consulted echo done Code(s): R74.8 - ABNORMAL LEVELS OF OTHER SERUM ENZYMES
[2018-09-12] MEDS: CEFEPIME 2 GM in DEXTROSE 5%-WATER - 100 ML IVPB SCH ×2 (09:45→21:02)
[2018-09-12] MEDS: levETIRAcetam 500 MG/5 ML INJECTION VIAL IVPB SCH ×2 (09:47→21:01)
[2018-09-12] MEDS: PANTOPRAZOLE SODIUM 40 MG VIAL IVPUSH SCH (09:47)
[2018-09-12] MEDS ORDERED: MAGNESIUM SULF 50% (8.12 MEQ/2 ML-1 GM VIAL) IVPB ONE (11:00)
--- NOTE | 2018-09-12 11:44 | PN ---
Teaching Attending Note Name of Resident: Naomi Manuel ATTENDING PHYSICIAN STATEMENT I saw and evaluated the patient. I reviewed the resident's note and discussed the case with the resident. I agree with the resident's findings and plan as documented. SUBJECTIVE: Pt seen and examined in the ICU. Pt nonverbal, appears comfortable. No fevers recorded. OBJECTIVE: Vital Signs Period Temp Pulse Resp BP Sys/Fried Pulse Ox Last 24 Hr 96.4 F-98.4 F 61-72 13-18 95-121/57-81 100-100 Intake & Output 09/09/18 09/10/18 09/11/18 09/12/18 23:59 23:59 23:59 23:59 Intake Total 3708 3202 1730 1100 Output Total 2250 2750 600 Balance 0622 182 8262 1100 Weight 70.1 kg 69.1 kg 69.626 kg 69.626 kg Gen: NAD at rest Heart: RRR Lung: decreased breath sounds at the bases Abd: soft, nontender Ext: no edema CBC, BMP 09/12/18 05:15 09/12/18 05:15 Active Medications Albuterol/Ipratropium (Duoneb -) 1 amp NEB RQID [facility] Last Admin: 09/12/18 07:20 Dose: 1 amp Dexamethasone Sodium Phosphate (Decadron Injection -) 4 mg IVPUSH Q6H [facility] Heparin Sodium (Porcine) (Heparin -) 5,000 unit SQ TID [facility] Last Admin: 09/12/18 06:09 Dose: 5,000 unit Cefepime HCl 2 gm/ Dextrose 100 mls @ 200 mls/hr IVPB BID [facility]; Protocol Last Admin: 09/12/18 09:45 Dose: 200 mls/hr Metronidazole (Flagyl 500mg Premixed Ivpb -) 500 mg in 100 mls @ 100 mls/hr IVPB Q8H-IV [facility] Last Admin: 09/12/18 09:47 Dose: 100 mls/hr Levetiracetam (Keppra Injection -) 500 mg IVPB BID [facility] Last Admin: 09/12/18 09:47 Dose: 500 mg Pantoprazole Sodium (Protonix Iv) 40 mg IVPUSH DAILY [facility] Last Admin: 09/12/18 09:47 Dose: 40 mg Potassium Phos/Sodium Phos (Phos-Nak Packet -) 1 packet PO TID [facility] Stop: 09/13/18 06:01 Last Admin: 09/12/18 06:08 Dose: 1 packet ASSESSMENT AND PLAN: Multiple Brain Masses with midline shift s/p Acute Hypoxic Respiratory Failure Shock resolved Acute Kidney Injury improving Lactic Acidosis resolved +Troponins likely Demand Ischemia - complete empiric antibiotics - taper decadron per neurosurgery - empiric antiepileptics - aspiration precautions - taper Fio2 to keep SpO2 >90% - swallow eval - DVT/GI prophylaxis - can monitor on floor
--- NOTE | 2018-09-12 12:15 | PN ---
Progress Note, Physician History of Present Illness: Pt seen and examined at bedside. She remains in the ICU. She is awake but not responsive to verbal stimuli. She is tolerating feeds. - Current Medication List Current Medications: Active Medications Albuterol/Ipratropium (Duoneb -) 1 amp NEB RQID [facility] Last Admin: 09/12/18 11:20 Dose: 1 amp Dexamethasone Sodium Phosphate (Decadron Injection -) 4 mg IVPUSH Q6H [facility] Heparin Sodium (Porcine) (Heparin -) 5,000 unit SQ TID [facility] Last Admin: 09/12/18 06:09 Dose: 5,000 unit Cefepime HCl 2 gm/ Dextrose 100 mls @ 200 mls/hr IVPB BID [facility]; Protocol Last Admin: 09/12/18 09:45 Dose: 200 mls/hr Metronidazole (Flagyl 500mg Premixed Ivpb -) 500 mg in 100 mls @ 100 mls/hr IVPB Q8H-IV [facility] Last Admin: 09/12/18 09:47 Dose: 100 mls/hr Levetiracetam (Keppra Injection -) 500 mg IVPB BID [facility] Last Admin: 09/12/18 09:47 Dose: 500 mg Pantoprazole Sodium (Protonix Iv) 40 mg IVPUSH DAILY [facility] Last Admin: 09/12/18 09:47 Dose: 40 mg Potassium Phos/Sodium Phos (Phos-Nak Packet -) 1 packet PO TID [facility] Stop: 09/13/18 06:01 Last Admin: 09/12/18 06:08 Dose: 1 packet - Objective Vital Signs: Vital Signs Temperature 96.4 F L 09/12/18 10:00 Pulse Rate 63 09/12/18 10:00 Respiratory Rate 15 09/12/18 10:00 Blood Pressure 103/59 L 09/12/18 10:00 O2 Sat by Pulse Oximetry (%) 100 09/12/18 09:00 Constitutional: Yes: Calm Eyes: Yes: Conjunctiva Clear HENT: Yes: Atraumatic Neck: Yes: Supple Cardiovascular: Yes: S1, S2 Respiratory: Yes: On Venti-Mask Gastrointestinal: Yes: Soft Genitourinary: Yes: [place] Present Musculoskeletal: Yes: Muscle Weakness Edema: No Neurological: Yes: Lethargy Labs: CBC, BMP 09/12/18 05:15 09/12/18 05:15 INR, PTT INR 0.91 (0.83-1.09) 09/11/18 05:15 Fibrinogen 238.0 mg/dL (238-498) 09/06/18 02:08 Problem List - Problems (1) CROW (acute kidney injury) Code(s): N17.9 - ACUTE KIDNEY FAILURE, UNSPECIFIED (2) Hypotension Code(s): I95.9 - HYPOTENSION, UNSPECIFIED Assessment/Plan Current Medications Generic Name Dose Route Start Last Admin Trade Name Freq PRN Reason Stop Dose Admin Albuterol/Ipratropium 1 amp 09/11/18 12:00 09/12/18 11:20 Duoneb - NEB 1 amp RQID [facility] Administration Dexamethasone Sodium Phosphate 4 mg 09/12/18 11:00 Decadron Injection - IVPUSH Q6H [facility] Heparin Sodium (Porcine) 5,000 unit 09/11/18 14:00 09/12/18 06:09 Heparin - SQ 5,000 unit TID [facility] Administration Cefepime HCl 2 gm/ Dextrose 100 mls @ 200 mls/hr 09/11/18 22:00 09/12/18 09: 45 IVPB 200 mls/hr BID [facility] Administration Protocol Metronidazole 500 mg in 100 mls @ 100 mls/hr 09/11/18 18:00 09/12/18 09:47 Flagyl 500mg Premixed Ivpb - IVPB 100 mls/hr Q8H-IV [facility] Administration Levetiracetam 500 mg 09/11/18 22:00 09/12/18 09:47 Keppra Injection - IVPB 500 mg BID [facility] Administration Pantoprazole Sodium 40 mg 09/12/18 10:00 09/12/18 09:47 Protonix Iv IVPUSH 40 mg DAILY [facility] Administration Potassium Phos/Sodium Phos 1 packet 09/11/18 16:17 09/12/18 06:08 Phos-Nak Packet - PO 09/13/18 06:01 1 packet TID [facility] Administration Impression 1. CROW 2. shock 3. hypotension 4. acute resp failure 5. brain masses with midline shift 6. lactic acidosis 7. positive troponins 8. hypernatremia 9. hypokalemia Plan - pt is off of fluids - cont with tube feeds - replace phos - monitor lytes - renal function is improved - glucose control - will follow prn
--- NOTE | 2018-09-12 14:09 | PN ---
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 Follows occasional whole body commands. Upon repetition of "ah", voice still Aphonic. Non verbal.Track with eyes. Continue NGT. What are pt's end of life wishes?
--- NOTE | 2018-09-12 17:45 | PN ---
Progress Note (short form) - Note Progress Note: Patient seen and examined Responsive to verbal and tactile stimuli Last Vital Signs Temp Pulse Resp BP Pulse Ox 96.4 F L 69 16 115/65 100 09/12/18 10:00 09/12/18 14:47 09/12/18 14:47 09/12/18 14:47 09/12/18 09:00 S/P crainotomy Lungs - [id number] breath sounds Cor-RSR Abd- soft Ext-SCD CBC, BMP 09/12/18 05:15 09/12/18 05:15 Current Medications Generic Name Dose Route Start Last Admin Trade Name Freq PRN Reason Stop Dose Admin Albuterol/Ipratropium 1 amp 09/11/18 12:00 09/12/18 16:20 Duoneb - NEB 1 amp RQID [facility] Administration Dexamethasone Sodium Phosphate 4 mg 09/12/18 11:00 09/12/18 17:08 Decadron Injection - IVPUSH 4 mg Q6H [facility] Administration Heparin Sodium (Porcine) 5,000 unit 09/11/18 14:00 09/12/18 14:22 Heparin - SQ 5,000 unit TID [facility] Administration Cefepime HCl 2 gm/ Dextrose 100 mls @ 200 mls/hr 09/11/18 22:00 09/12/18 09: 45 IVPB 200 mls/hr BID [facility] Administration Protocol Metronidazole 500 mg in 100 mls @ 100 mls/hr 09/11/18 18:00 09/12/18 17:08 Flagyl 500mg Premixed Ivpb - IVPB 100 mls/hr Q8H-IV [facility] Administration Levetiracetam 500 mg 09/11/18 22:00 09/12/18 09:47 Keppra Injection - IVPB 500 mg BID [facility] Administration Pantoprazole Sodium 40 mg 09/12/18 10:00 09/12/18 09:47 Protonix Iv IVPUSH 40 mg DAILY [facility] Administration Potassium Phos/Sodium Phos 1 packet 09/11/18 16:17 09/12/18 14:22 Phos-Nak Packet - PO 09/13/18 06:01 1 packet TID [facility] Administration Multiple Brain Masses with midline shift s/p Acute Hypoxic Respiratory Failure Shock resolved Continued ongoing ICU management/neurological care.
--- NOTE | 2018-09-12 17:52 | PN ---
Progress Note (short form) - Note Progress Note: nad awake responsive Vital Signs Period Temp Pulse Resp BP Sys/Fried Pulse Ox Last 24 Hr 96.4 F-98.4 F 61-70 15-19 95-121/57-81 100-100 cor-rrr lungs decreased bs at bases abd soft,nt ext trace edema CBC, BMP 09/12/18 05:15 09/12/18 05:15 Microbiology 09/05/18 23:03 Blood - Peripheral Venous Blood Culture - Final NO GROWTH AFTER 5 DAYS INCUBATION 09/05/18 22:50 Blood - Peripheral Venous Blood Culture - Final NO GROWTH AFTER 5 DAYS INCUBATION 09/05/18 23:02 Urine - Urine [place] Urine Culture - Final NO GROWTH OBTAINED cxray basilar infiltrates Current Medications Albuterol/Ipratropium (Duoneb -) 1 amp NEB RQID [facility] Last Admin: 09/12/18 16:20 Dose: 1 amp Dexamethasone Sodium Phosphate (Decadron Injection -) 4 mg IVPUSH Q6H [facility] Last Admin: 09/12/18 17:08 Dose: 4 mg Heparin Sodium (Porcine) (Heparin -) 5,000 unit SQ TID [facility] Last Admin: 09/12/18 14:22 Dose: 5,000 unit Cefepime HCl 2 gm/ Dextrose 100 mls @ 200 mls/hr IVPB BID [facility]; Protocol Last Admin: 09/12/18 09:45 Dose: 200 mls/hr Metronidazole (Flagyl 500mg Premixed Ivpb -) 500 mg in 100 mls @ 100 mls/hr IVPB Q8H-IV [facility] Last Admin: 09/12/18 17:08 Dose: 100 mls/hr Levetiracetam (Keppra Injection -) 500 mg IVPB BID [facility] Last Admin: 09/12/18 09:47 Dose: 500 mg Pantoprazole Sodium (Protonix Iv) 40 mg IVPUSH DAILY [facility] Last Admin: 09/12/18 09:47 Dose: 40 mg Potassium Phos/Sodium Phos (Phos-Nak Packet -) 1 packet PO TID [facility] Stop: 09/13/18 06:01 Last Admin: 09/12/18 14:22 Dose: 1 packet a/p fever/leukocytosis-improved, leukocytosis partially due to steroids hypotension resolved crow resolved brain masses with edema continue cefepime/flagyl- ?aspiration- dose adjusted for resolving crow f/u ct scan overall prognosis is poor Problem List - Problems (1) Septic shock Code(s): A41.9 - SEPSIS, UNSPECIFIED ORGANISM; R65.21 - SEVERE SEPSIS WITH SEPTIC SHOCK (2) Fever Code(s): R50.9 - FEVER, UNSPECIFIED (3) Hypotension Code(s): I95.9 - HYPOTENSION, UNSPECIFIED (4) 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
[2018-09-12] MEDS: DEXAMETHASONE SOD PHOSPHATE 4 MG/1 ML VIAL IVPUSH SCH (22:50)
[2018-09-13] MEDS: DEXAMETHASONE SOD PHOSPHATE 4 MG/1 ML VIAL IVPUSH SCH ×4 (02:35→20:54)
[2018-09-13] MEDS: HEPARIN NA (PORCINE) 5,000 UNITS/ML 1ML VIAL SQ SCH ×3 (06:01→21:03)
[2018-09-13] MEDS: NAPH,MB-DB/K PH,MBDB POWDER PACKET PO SCH (06:01)
[2018-09-13 06:59] LABS: HEMATOCRIT 34.3 % (32.4-45.2); HEMOGLOBIN 10.6 GM/dL (10.7-15.3); MCH 28.7 pg (25.7-33.7); MCHC 31.1 g/dl (32.0-36.0); MEAN CELL VOLUME 92.4 fl (80-96); PLATELET COUNT 315 K/MM3 (134-434); RBC 3.71 M/mm3 (3.60-5.2); WHITE BLOOD COUNT 17.7 K/mm3 (4.0-10.0)
[2018-09-13 07:21] LABS: ALBUMIN 2.3 g/dl (3.4-5.0); ALK PHOS 98 U/L (45-117); ANION GAP 7 MMOL/L (8-16); BILIRUBIN,TOTAL 0.7 mg/dL (0.2-1); BLOOD UREA NITROGEN 24 mg/dL (7-18); CALCIUM 9.2 mg/dL (8.5-10.1); CHLORIDE 100 mmol/L (98-107); CO2 30 mmol/L (21-32); CREATININE 0.5 mg/dL (0.55-1.3); GLUCOSE,RANDOM 209 mg/dL (74-106); MAGNESIUM 2.2 mg/dL (1.8-2.4); PHOSPHOROUS 2.2 mg/dL (2.5-4.9); POTASSIUM 4.8 mmol/L (3.5-5.1); SGOT/AST 65 U/L (15-37); SGPT/ALT 216 U/L (13-61); SODIUM 136 mmol/L (136-145); TOT PROT 5.3 g/dl (6.4-8.2)
--- NOTE | 2018-09-13 07:52 | PN ---
Progress Note (short form) - Note Progress Note: NEUROSURGERY Remains extubated PE: Tmax 98.1, AF, BP 100's/50's Following simple commands grasping w R hand Eyes closed HEENT- healed R hemispheric incision; Neck- supple; Cor- RR; Lungs- decreased BS at bases; Abd- benign; Ext- B UE/LE edema slightly better CN- PERRL, difficult to assess fully; Motor- R UE more movement, no L UE movement; R LE movement to pain >> L; Sensation- difficult to assess; DTR- hyporeflexic, B toes upgoing R > L Blood cultures negative Head CT- R parietal > frontal dural-based isodense mass with mass effect, edema , and R to L shift. Prior R craniectomy and cranioplasty R parietal > frontal isodense possibly dural based lesions possibly invasive/ malignant meningiomas, with edema/mass effect Sepsis on Cefepime and Flagyl Keppra for sz prophylaxis Comfort care D/w ICU team
[2018-09-13] MEDS: ALBUTEROL SO4 2.5/IPRATROPIUM 0.5 INH SOL 3 ML VIAL.NEB. NEB SCH ×4 (08:36→20:07)
--- NOTE | 2018-09-13 10:05 | PN ---
Progress Note, Physician Chief Complaint: IN BED , UNRESPONSIVE EVENTS AND NOTES REVIEWED - Current Medication List Current Medications: Active Medications Albuterol/Ipratropium (Duoneb -) 1 amp NEB RQID [facility] Last Admin: 09/13/18 08:36 Dose: 1 amp Dexamethasone Sodium Phosphate (Decadron Injection -) 4 mg IVPUSH Q6H-IV [facility] Last Admin: 09/13/18 02:35 Dose: 4 mg Heparin Sodium (Porcine) (Heparin -) 5,000 unit SQ TID [facility] Last Admin: 09/13/18 06:01 Dose: 5,000 unit Cefepime HCl 2 gm/ Dextrose 100 mls @ 200 mls/hr IVPB BID [facility]; Protocol Last Admin: 09/12/18 21:02 Dose: 200 mls/hr Metronidazole (Flagyl 500mg Premixed Ivpb -) 500 mg in 100 mls @ 100 mls/hr IVPB Q8H-IV [facility] Last Admin: 09/13/18 02:35 Dose: 100 mls/hr Levetiracetam (Keppra Injection -) 500 mg IVPB BID [facility] Last Admin: 09/12/18 21:01 Dose: 500 mg Pantoprazole Sodium (Protonix Iv) 40 mg IVPUSH DAILY [facility] Last Admin: 09/12/18 09:47 Dose: 40 mg - Objective Vital Signs: Vital Signs Temperature 98.1 F 09/13/18 06:00 Pulse Rate 68 09/13/18 06:00 Respiratory Rate 16 09/13/18 06:00 Blood Pressure 123/68 09/13/18 06:00 O2 Sat by Pulse Oximetry (%) 100 09/12/18 21:00 Constitutional: Yes: Other Eyes: Yes: Other Cardiovascular: Yes: Regular Rate and Rhythm Respiratory: Yes: Diminished Gastrointestinal: Yes: Soft Genitourinary: Yes: [place] Present Musculoskeletal: Yes: Muscle Weakness Neurological: Yes: Aphasia, Unresponsive Psychiatric: Yes: Other Labs: CBC, BMP 09/13/18 06:00 09/13/18 06:00 INR, PTT INR 0.91 (0.83-1.09) 09/11/18 05:15 Fibrinogen 238.0 mg/dL (238-498) 09/06/18 02:08 Problem List - Problems (1) CROW (acute kidney injury) Code(s): N17.9 - ACUTE KIDNEY FAILURE, UNSPECIFIED (2) Elevated troponin Code(s): R74.8 - ABNORMAL LEVELS OF OTHER SERUM ENZYMES (3) Fever Code(s): R50.9 - FEVER, UNSPECIFIED (4) Hypotension Code(s): I95.9 - HYPOTENSION, UNSPECIFIED (5) Neoplasm of brain causing mass effect on adjacent structures Code(s): D49.6 - NEOPLASM OF UNSPECIFIED BEHAVIOR OF BRAIN (6) Septic shock Code(s): A41.9 - SEPSIS, UNSPECIFIED ORGANISM; R65.21 - SEVERE SEPSIS WITH SEPTIC SHOCK (7) Anemia Code(s): D64.9 - ANEMIA, UNSPECIFIED Qualifiers: Other causes of anemia: chronic disease, other (8) Depression Code(s): F32.9 - MAJOR DEPRESSIVE DISORDER, SINGLE EPISODE, UNSPECIFIED Assessment/Plan PATIENT IS UNRESPONSIVE WITH POOR QUALITY OF LIFE. PATIENT NEEDS A REVIEW OF HER GOALS OF CARE FROM PREVIOUS RECORDS OR FROM A FAMILY MEMBER. RECOMMENDING HOSPICE CARE
[2018-09-13] MEDS ORDERED: PT OWN MED DRAWER 7, Y5N ONE (10:33)
[2018-09-13] MEDS: PANTOPRAZOLE SODIUM 40 MG VIAL IVPUSH SCH (10:51)
[2018-09-13] MEDS: levETIRAcetam 500 MG/5 ML INJECTION VIAL IVPB SCH ×2 (10:51→22:02)
[2018-09-13] MEDS: CEFEPIME 2 GM in DEXTROSE 5%-WATER - 100 ML IVPB SCH ×2 (13:04→21:03)
--- NOTE | 2018-09-13 13:05 | PN ---
Progress Note, Physician History of Present Illness: pulmonary eyes open,poorly responsive,-resp distress - Current Medication List Current Medications: Active Medications Albuterol/Ipratropium (Duoneb -) 1 amp NEB RQID [facility] Last Admin: 09/13/18 11:46 Dose: 1 amp Dexamethasone Sodium Phosphate (Decadron Injection -) 4 mg IVPUSH Q6H-IV [facility] Last Admin: 09/13/18 10:51 Dose: 4 mg Heparin Sodium (Porcine) (Heparin -) 5,000 unit SQ TID [facility] Last Admin: 09/13/18 06:01 Dose: 5,000 unit Cefepime HCl 2 gm/ Dextrose 100 mls @ 200 mls/hr IVPB BID [facility]; Protocol Last Admin: 09/12/18 21:02 Dose: 200 mls/hr Metronidazole (Flagyl 500mg Premixed Ivpb -) 500 mg in 100 mls @ 100 mls/hr IVPB Q8H-IV [facility] Last Admin: 09/13/18 10:51 Dose: 100 mls/hr Levetiracetam (Keppra Injection -) 500 mg IVPB BID [facility] Last Admin: 09/13/18 10:51 Dose: 500 mg Pantoprazole Sodium (Protonix Iv) 40 mg IVPUSH DAILY [facility] Last Admin: 09/13/18 10:51 Dose: 40 mg - Objective Vital Signs: Vital Signs Temperature 96.7 F L 09/13/18 10:00 Pulse Rate 70 09/13/18 10:00 Respiratory Rate 16 09/13/18 10:00 Blood Pressure 112/60 09/13/18 10:00 O2 Sat by Pulse Oximetry (%) 100 09/12/18 21:00 Constitutional: Yes: Well Nourished, Other (poorly responsive) Eyes: Yes: WNL HENT: Yes: WNL Neck: Yes: WNL Cardiovascular: Yes: Regular Rate and Rhythm, S1, S2 Respiratory: Yes: Diminished Extremities: Yes: WNL Edema: Yes Labs: CBC, BMP 09/13/18 06:00 09/13/18 06:00 INR, PTT INR 0.91 (0.83-1.09) 09/11/18 05:15 Fibrinogen 238.0 mg/dL (238-498) 09/06/18 02:08 Problem List - Problems (1) CROW (acute kidney injury) Code(s): N17.9 - ACUTE KIDNEY FAILURE, UNSPECIFIED (2) Elevated troponin Code(s): R74.8 - ABNORMAL LEVELS OF OTHER SERUM ENZYMES (3) Neoplasm of brain causing mass effect on adjacent structures Code(s): D49.6 - NEOPLASM OF UNSPECIFIED BEHAVIOR OF BRAIN (4) Anemia Code(s): D64.9 - ANEMIA, UNSPECIFIED Qualifiers: Other causes of anemia: chronic disease, other Assessment/Plan ASSESSMENT AND PLAN: Multiple Brain Masses with midline shift s/p Acute Hypoxic Respiratory Failure Shock resolved Acute Kidney Injury improving Lactic Acidosis resolved +Troponins likely Demand Ischemia - taper decadron per neurosurgery - empiric antiepileptics - aspiration precautions - taper Fio2 to keep SpO2 >90% - swallow eval - DVT/GI prophylaxis DR LOPEZ
--- NOTE | 2018-09-13 14:10 | PN ---
Progress Note (short form) - Note Progress Note: nad afebrile Vital Signs Period Temp Pulse Resp BP Sys/Fried Pulse Ox Last 24 Hr 96.7 F-98.1 F 60-70 15-16 100-123/55-68 100-100 cor-rrr llungs decreased bs at bases abd soft,nt ext +edema CBC, BMP 09/13/18 06:00 09/13/18 06:00 Microbiology 09/05/18 23:03 Blood - Peripheral Venous Blood Culture - Final NO GROWTH AFTER 5 DAYS INCUBATION 09/05/18 22:50 Blood - Peripheral Venous Blood Culture - Final NO GROWTH AFTER 5 DAYS INCUBATION 09/05/18 23:02 Urine - Urine [place] Urine Culture - Final NO GROWTH OBTAINED cxray basilar infiltrates a/p fever/leukocytosis-improved, leukocytosis partially due to steroids hypotension resolved crow resolved brain masses with edema continue cefepime/flagyl- ?aspiration- dose adjusted for resolving crow f/u ct scan overall prognosis is poor Problem List - Problems (1) Septic shock Code(s): A41.9 - SEPSIS, UNSPECIFIED ORGANISM; R65.21 - SEVERE SEPSIS WITH SEPTIC SHOCK (2) Fever Code(s): R50.9 - FEVER, UNSPECIFIED (3) Hypotension Code(s): I95.9 - HYPOTENSION, UNSPECIFIED (4) 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
--- NOTE | 2018-09-13 14:23 | PN ---
Progress Note, BUSINESS CONTINUITY SPECIALIST - Note Progress Note: Pt now on [address]. Lethargic. Seems comfortable. Not SOB. Upper extremities swollen. NGT in place. Selected Entries 09/12/18 09/12/18 09/12/18 02:00 06:00 08:00 Breakfast Temperature 97.2 F L 98.4 F 96.9 F L 09/12/18 09/12/18 09/13/18 10:00 20:19 02:00 Breakfast Temperature 96.4 F L 97.1 F L 97.4 F L 09/13/18 09/13/18 09/13/18 06:00 10:00 11:59 Breakfast NPO Temperature 98.1 F 96.7 F L Laboratory Tests 09/11/18 09/12/18 09/13/18 05:15 05:15 06:00 WBC 20.0 H 17.5 H 17.7 H Maintain HOB elevated. Poor prognosis for functional recovery. Pt is a full code. What are pt's end of life wishes? Followed by Palliative care.
[2018-09-14] MEDS: DEXAMETHASONE SOD PHOSPHATE 4 MG/1 ML VIAL IVPUSH SCH ×4 (03:02→21:32)
[2018-09-14] MEDS: HEPARIN NA (PORCINE) 5,000 UNITS/ML 1ML VIAL SQ SCH ×3 (05:58→21:32)
[2018-09-14] MEDS ORDERED: PT OWN MED DRAWER 7, Y5N ONE (09:31)
[2018-09-14] MEDS: CEFEPIME 2 GM in DEXTROSE 5%-WATER - 100 ML IVPB SCH ×2 (09:35→21:42)
[2018-09-14] MEDS: PANTOPRAZOLE SODIUM 40 MG VIAL IVPUSH SCH (09:35)
--- NOTE | 2018-09-14 10:06 | PN ---
Progress Note (short form) - Note Progress Note: NEUROSURGERY Remains extubated PE: Tmax 97.4, AF, BP OK Following simple commands grasping w R hand sluggishly Not fully awake HEENT- healed R hemispheric incision; Neck- supple; Cor- RR; Lungs- decreased BS at bases; Abd- benign; Ext- B UE/LE edema slightly better CN- PERRL, difficult to assess fully; Motor- R UE more movement, no L UE movement; R LE movement to pain >> L; Sensation- difficult to assess Blood cultures negative R parietal > frontal isodense possibly dural based lesions possibly invasive/ malignant meningiomas, with edema/mass effect Sepsis on Cefepime and Flagyl Keppra for sz prophylaxis Comfort care D/w ICU team
[2018-09-14] MEDS: ALBUTEROL SO4 2.5/IPRATROPIUM 0.5 INH SOL 3 ML VIAL.NEB. NEB SCH ×4 (10:08→19:35)
[2018-09-14] MEDS: levETIRAcetam 500 MG/5 ML INJECTION VIAL IVPB SCH ×2 (10:36→21:33)
--- NOTE | 2018-09-14 10:51 | PN ---
Progress Note, Physician Chief Complaint: UNRESPONSIVE STILL PALLIAITVE CARE AND SOCIAL WORKERS ARE STILL WAITING ON FAMILY OR NEXT OF KIN - Current Medication List Current Medications: Active Medications Albuterol/Ipratropium (Duoneb -) 1 amp NEB RQID [facility] Last Admin: 09/14/18 10:08 Dose: 1 amp Dexamethasone Sodium Phosphate (Decadron Injection -) 4 mg IVPUSH Q6H-IV [facility] Last Admin: 09/14/18 09:35 Dose: 4 mg Heparin Sodium (Porcine) (Heparin -) 5,000 unit SQ TID [facility] Last Admin: 09/14/18 05:58 Dose: 5,000 unit Cefepime HCl 2 gm/ Dextrose 100 mls @ 200 mls/hr IVPB BID [facility]; Protocol Last Admin: 09/14/18 09:35 Dose: 200 mls/hr Metronidazole (Flagyl 500mg Premixed Ivpb -) 500 mg in 100 mls @ 100 mls/hr IVPB Q8H-IV [facility] Last Admin: 09/14/18 10:36 Dose: 100 mls/hr Levetiracetam (Keppra Injection -) 500 mg IVPB BID [facility] Last Admin: 09/14/18 10:36 Dose: 500 mg Pantoprazole Sodium (Protonix Iv) 40 mg IVPUSH DAILY [facility] Last Admin: 09/14/18 09:35 Dose: 40 mg - Objective Vital Signs: Vital Signs Temperature 97.8 F 09/14/18 06:00 Pulse Rate 70 09/14/18 06:00 Respiratory Rate 18 09/14/18 06:00 Blood Pressure 143/65 09/14/18 06:00 O2 Sat by Pulse Oximetry (%) 99 09/13/18 21:00 Constitutional: Yes: No Distress Cardiovascular: Yes: Regular Rate and Rhythm Respiratory: Yes: Diminished Gastrointestinal: Yes: Other Genitourinary: Yes: Incontinence Musculoskeletal: Yes: Muscle Weakness Edema: Yes Peripheral Pulses WNL: Yes Neurological: Yes: Unresponsive ...Motor Strength: LUE, LLE, RUE, RLE Psychiatric: Yes: Other Labs: CBC, BMP 09/13/18 06:00 09/13/18 06:00 INR, PTT INR 0.91 (0.83-1.09) 09/11/18 05:15 Fibrinogen 238.0 mg/dL (238-498) 09/06/18 02:08 Problem List - Problems (1) CROW (acute kidney injury) Code(s): N17.9 - ACUTE KIDNEY FAILURE, UNSPECIFIED (2) Elevated troponin Code(s): R74.8 - ABNORMAL LEVELS OF OTHER SERUM ENZYMES (3) Fever Code(s): R50.9 - FEVER, UNSPECIFIED (4) Hypotension Code(s): I95.9 - HYPOTENSION, UNSPECIFIED (5) Neoplasm of brain causing mass effect on adjacent structures Code(s): D49.6 - NEOPLASM OF UNSPECIFIED BEHAVIOR OF BRAIN (6) Septic shock Code(s): A41.9 - SEPSIS, UNSPECIFIED ORGANISM; R65.21 - SEVERE SEPSIS WITH SEPTIC SHOCK (7) Anemia Code(s): D64.9 - ANEMIA, UNSPECIFIED Qualifiers: Other causes of anemia: chronic disease, other (8) Depression Code(s): F32.9 - MAJOR DEPRESSIVE DISORDER, SINGLE EPISODE, UNSPECIFIED Assessment/Plan PATIENT IS UNRESPONSIVE WITH POOR QUALITY OF LIFE. PATIENT NEEDS A REVIEW OF HER GOALS OF CARE FROM PREVIOUS RECORDS OR FROM A FAMILY MEMBER. RECOMMENDING HOSPICE CARE
--- NOTE | 2018-09-14 14:21 | PN ---
Progress Note, NURSES MEDICAL ASSISTANTS PHLEBOTOMISTS - Note Progress Note: Pt now on [address]. Lethargic. Seems comfortable. Not SOB. Upper extremities swollen. NGT in place. Selected Entries 09/12/18 09/12/18 09/12/18 02:00 06:00 08:00 Breakfast Temperature 97.2 F L 98.4 F 96.9 F L 09/12/18 09/12/18 09/13/18 10:00 20:19 02:00 Breakfast Temperature 96.4 F L 97.1 F L 97.4 F L 09/13/18 09/13/18 09/13/18 06:00 10:00 11:59 Breakfast NPO Temperature 98.1 F 96.7 F L Laboratory Tests 09/11/18 09/12/18 09/13/18 05:15 05:15 06:00 WBC 20.0 H 17.5 H 17.7 H Maintain HOB elevated. Poor prognosis for functional recovery. Pt is a full code. What are pt's end of life wishes? Followed by Palliative care.
--- NOTE | 2018-09-14 15:10 | PN ---
Progress Note (short form) - Note Progress Note: PULMONARY Awake but poorly responsive. Vital Signs Period Temp Pulse Resp BP Sys/Fried Pulse Ox Last 24 Hr 97.1 F-97.8 F 70-84 18-22 105-143/52-74 99 Gen: poorly responsive Heart: RRR Lung: decreased breath sounds at the bases Abd: soft, nontender Ext: no edema CBC, BMP 09/13/18 06:00 09/13/18 06:00 Active Medications Albuterol/Ipratropium (Duoneb -) 1 amp NEB RQID [facility] Last Admin: 09/14/18 12:42 Dose: 1 amp Dexamethasone Sodium Phosphate (Decadron Injection -) 4 mg IVPUSH Q6H-IV [facility] Last Admin: 09/14/18 14:38 Dose: 4 mg Heparin Sodium (Porcine) (Heparin -) 5,000 unit SQ TID [facility] Last Admin: 09/14/18 14:37 Dose: 5,000 unit Cefepime HCl 2 gm/ Dextrose 100 mls @ 200 mls/hr IVPB BID [facility]; Protocol Last Admin: 09/14/18 09:35 Dose: 200 mls/hr Metronidazole (Flagyl 500mg Premixed Ivpb -) 500 mg in 100 mls @ 100 mls/hr IVPB Q8H-IV [facility] Last Admin: 09/14/18 10:36 Dose: 100 mls/hr Levetiracetam (Keppra Injection -) 500 mg IVPB BID [facility] Last Admin: 09/14/18 10:36 Dose: 500 mg Pantoprazole Sodium (Protonix Iv) 40 mg IVPUSH DAILY [facility] Last Admin: 09/14/18 09:35 Dose: 40 mg A/P Multiple Brain Masses with midline shift s/p Acute Hypoxic Respiratory Failure Shock resolved Acute Kidney Injury improving Lactic Acidosis resolved +Troponins likely Demand Ischemia - complete empiric antibiotics - taper decadron per neurosurgery - empiric antiepileptics - aspiration precautions - taper Fio2 to keep SpO2 >90% - swallow eval - DVT/GI prophylaxis
[2018-09-15] MEDS: DEXAMETHASONE SOD PHOSPHATE 4 MG/1 ML VIAL IVPUSH SCH ×4 (02:39→20:09)
[2018-09-15] MEDS: HEPARIN NA (PORCINE) 5,000 UNITS/ML 1ML VIAL SQ SCH ×3 (06:57→22:27)
[2018-09-15] MEDS: ALBUTEROL SO4 2.5/IPRATROPIUM 0.5 INH SOL 3 ML VIAL.NEB. NEB SCH ×4 (07:30→21:00)
--- NOTE | 2018-09-15 09:40 | PN ---
Progress Note (short form) - Note Progress Note: nad afebrile clinically unchanged opens eyes does not follow commands Vital Signs Period Temp Pulse Resp BP Sys/Fried Pulse Ox Last 24 Hr 97.1 F-98.3 F 69-80 18-22 105-135/57-73 98 cor-rrr llungs decreased bs at bases abd soft,nt ext +edema CBC, BMP 09/13/18 06:00 09/13/18 06:00 Microbiology 09/05/18 23:03 Blood - Peripheral Venous Blood Culture - Final NO GROWTH AFTER 5 DAYS INCUBATION 09/05/18 22:50 Blood - Peripheral Venous Blood Culture - Final NO GROWTH AFTER 5 DAYS INCUBATION 09/05/18 23:02 Urine - Urine [place] Urine Culture - Final NO GROWTH OBTAINED a/p fever/leukocytosis-improved, leukocytosis partially due to steroids hypotension resolved crow resolved brain masses with edema day #10 antibiotics will d/w neurosurgery comfort care/palliative care overall prognosis is poor Problem List - Problems (1) Septic shock Code(s): A41.9 - SEPSIS, UNSPECIFIED ORGANISM; R65.21 - SEVERE SEPSIS WITH SEPTIC SHOCK (2) Fever Code(s): R50.9 - FEVER, UNSPECIFIED (3) Hypotension Code(s): I95.9 - HYPOTENSION, UNSPECIFIED (4) 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
[2018-09-15] MEDS: PANTOPRAZOLE SODIUM 40 MG VIAL IVPUSH SCH (09:45)
[2018-09-15] MEDS: levETIRAcetam 500 MG/5 ML INJECTION VIAL IVPB SCH ×2 (10:55→22:27)
[2018-09-15] MEDS: CEFEPIME 2 GM in DEXTROSE 5%-WATER - 100 ML IVPB SCH ×2 (11:43→22:27)
--- NOTE | 2018-09-15 13:34 | PN ---
Progress Note (short form) - Note Progress Note: DISCUSSED WITH JAYCE FROM PALLIATIVE CARE AWAITING CALL BACK FROM [facility] FROM THE [facility] THEY ARE DISCUSSING WITH THEIR KENNEL SUPERVISOR AND WILL BE OPTING FOR HOSPICE CARE. CONTINUE CURRENT MEDS AND PLAN OF CARE FULL CODE FOR NOW Problem List - Problems (1) CROW (acute kidney injury) Code(s): N17.9 - ACUTE KIDNEY FAILURE, UNSPECIFIED (2) Elevated troponin Code(s): R74.8 - ABNORMAL LEVELS OF OTHER SERUM ENZYMES (3) Fever Code(s): R50.9 - FEVER, UNSPECIFIED (4) Hypotension Code(s): I95.9 - HYPOTENSION, UNSPECIFIED (5) Neoplasm of brain causing mass effect on adjacent structures Code(s): D49.6 - NEOPLASM OF UNSPECIFIED BEHAVIOR OF BRAIN (6) Septic shock Code(s): A41.9 - SEPSIS, UNSPECIFIED ORGANISM; R65.21 - SEVERE SEPSIS WITH SEPTIC SHOCK (7) Anemia Code(s): D64.9 - ANEMIA, UNSPECIFIED Qualifiers: Other causes of anemia: chronic disease, other (8) Depression Code(s): F32.9 - MAJOR DEPRESSIVE DISORDER, SINGLE EPISODE, UNSPECIFIED
--- NOTE | 2018-09-15 14:30 | PN ---
Progress Note, Physician History of Present Illness: PULMONARY NO CHANGE AWAKE POORLY RESPONSIVE,-RESP DISTRESS - Current Medication List Current Medications: Active Medications Albuterol/Ipratropium (Duoneb -) 1 amp NEB RQID [facility] Last Admin: 09/15/18 11:34 Dose: 1 amp Dexamethasone Sodium Phosphate (Decadron Injection -) 4 mg IVPUSH Q6H-IV [facility] Last Admin: 09/15/18 09:44 Dose: 4 mg Heparin Sodium (Porcine) (Heparin -) 5,000 unit SQ TID [facility] Last Admin: 09/15/18 06:57 Dose: 5,000 unit Cefepime HCl 2 gm/ Dextrose 100 mls @ 200 mls/hr IVPB BID [facility]; Protocol Last Admin: 09/15/18 11:43 Dose: 200 mls/hr Metronidazole (Flagyl 500mg Premixed Ivpb -) 500 mg in 100 mls @ 100 mls/hr IVPB Q8H-IV [facility] Last Admin: 09/15/18 09:50 Dose: 100 mls/hr Levetiracetam (Keppra Injection -) 500 mg IVPB BID [facility] Last Admin: 09/15/18 10:55 Dose: 500 mg Pantoprazole Sodium (Protonix Iv) 40 mg IVPUSH DAILY [facility] Last Admin: 09/15/18 09:45 Dose: 40 mg - Objective Vital Signs: Vital Signs Temperature 97.9 F 09/15/18 10:00 Pulse Rate 72 09/15/18 10:00 Respiratory Rate 20 09/15/18 10:00 Blood Pressure 127/60 09/15/18 10:00 O2 Sat by Pulse Oximetry (%) 98 09/14/18 21:00 Constitutional: Yes: Well Nourished, Other (POORLY RESPONSIVE) Eyes: Yes: WNL HENT: Yes: WNL Neck: Yes: WNL Cardiovascular: Yes: Regular Rate and Rhythm, S1, S2 Respiratory: Yes: CTA Bilaterally Gastrointestinal: Yes: Normal Bowel Sounds, Soft Extremities: Yes: WNL Edema: No Labs: Problem List - Problems (1) CROW (acute kidney injury) Code(s): N17.9 - ACUTE KIDNEY FAILURE, UNSPECIFIED (2) Elevated troponin Code(s): R74.8 - ABNORMAL LEVELS OF OTHER SERUM ENZYMES (3) Neoplasm of brain causing mass effect on adjacent structures Code(s): D49.6 - NEOPLASM OF UNSPECIFIED BEHAVIOR OF BRAIN (4) Anemia Code(s): D64.9 - ANEMIA, UNSPECIFIED Qualifiers: Other causes of anemia: chronic disease, other Assessment/Plan ASSESSMENT AND PLAN: Multiple Brain Masses with midline shift s/p Acute Hypoxic Respiratory Failure Shock resolved Acute Kidney Injury improving Lactic Acidosis resolved +Troponins likely Demand Ischemia - taper decadron per neurosurgery - empiric antiepileptics - aspiration precautions - taper Fio2 to keep SpO2 >90% - swallow eval - DVT/GI prophylaxis DR LOPEZ
[2018-09-15] MEDS ORDERED: PT OWN MED DRAWER 7, Y5N ONE (21:53)
[2018-09-16] MEDS: DEXAMETHASONE SOD PHOSPHATE 4 MG/1 ML VIAL IVPUSH SCH ×4 (02:34→21:05)
[2018-09-16] MEDS: HEPARIN NA (PORCINE) 5,000 UNITS/ML 1ML VIAL SQ SCH ×3 (05:48→21:06)
[2018-09-16] MEDS: ALBUTEROL SO4 2.5/IPRATROPIUM 0.5 INH SOL 3 ML VIAL.NEB. NEB SCH ×4 (07:20→21:00)
[2018-09-16] MEDS ORDERED: PT OWN MED DRAWER 7, Y5N ONE (09:32)
[2018-09-16] MEDS: PANTOPRAZOLE SODIUM 40 MG VIAL IVPUSH SCH (09:39)
--- NOTE | 2018-09-16 10:37 | PN ---
Progress Note, Physician Chief Complaint: AMS History of Present Illness: Extubated, was in ICU DNR now Attempts made by Palliative care team to get in touch with family in [place] with inability to reach them. Another attempt will be made to reach Syeda and Corinne on Tuesday, if unable to reach them, pt's family friend Lauren grigsby with pt going to [facility] on Hospice - Current Medication List Current Medications: Active Medications Albuterol/Ipratropium (Duoneb -) 1 amp NEB RQID [facility] Last Admin: 09/16/18 07:20 Dose: 1 amp Dexamethasone Sodium Phosphate (Decadron Injection -) 4 mg IVPUSH Q6H-IV [facility] Last Admin: 09/16/18 09:35 Dose: 4 mg Heparin Sodium (Porcine) (Heparin -) 5,000 unit SQ TID [facility] Last Admin: 09/16/18 05:48 Dose: 5,000 unit Cefepime HCl 2 gm/ Dextrose 100 mls @ 200 mls/hr IVPB BID [facility]; Protocol Last Admin: 09/15/18 22:27 Dose: 200 mls/hr Metronidazole (Flagyl 500mg Premixed Ivpb -) 500 mg in 100 mls @ 100 mls/hr IVPB Q8H-IV [facility] Last Admin: 09/16/18 09:46 Dose: 100 mls/hr Levetiracetam (Keppra Injection -) 500 mg IVPB BID [facility] Last Admin: 09/15/18 22:27 Dose: 500 mg Pantoprazole Sodium (Protonix Iv) 40 mg IVPUSH DAILY [facility] Last Admin: 09/16/18 09:39 Dose: 40 mg - Objective Vital Signs: Vital Signs Temperature 97.7 F 09/16/18 06:00 Pulse Rate 77 09/16/18 06:00 Respiratory Rate 22 H 09/16/18 06:00 Blood Pressure 132/69 09/16/18 06:00 O2 Sat by Pulse Oximetry (%) 99 09/15/18 21:00 Constitutional: Yes: Well Nourished, No Distress, Calm Cardiovascular: Yes: Regular Rate and Rhythm Respiratory: Yes: Regular Gastrointestinal: Yes: Normal Bowel Sounds, Soft Musculoskeletal: Yes: Muscle Weakness Neurological: Yes: Pre-Existing Deficit Labs: CBC, BMP 09/13/18 06:00 09/13/18 06:00 INR, PTT INR 0.91 (0.83-1.09) 09/11/18 05:15 Fibrinogen 238.0 mg/dL (238-498) 09/06/18 02:08 Problem List - Problems (1) Elevated troponin Assessment/Plan: -peaked at 3.82 then trended down with a relatively normal CK level -in setting of JULIANA, possible sepsis, 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, 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 with masses, edema, 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 and possible hemorrhage -no ischemia on ekg -unlikely ACS, more likely due to the above -echo showed grossly normal LV systolic function with no sig valvular abnl -would not recommend further cardiac work up at this time -would not use antiplatelets or anticoagulants for the elevated troponins due to reported possible intracranial hemorrhage Code(s): R74.8 - ABNORMAL LEVELS OF OTHER SERUM ENZYMES (2) Fever Assessment/Plan: -afebrile now Cultures: Microbiology 09/05/18 23:03 Blood - Peripheral Venous Blood Culture - Final NO GROWTH AFTER 5 DAYS INCUBATION 09/05/18 22:50 Blood - Peripheral Venous Blood Culture - Final NO GROWTH AFTER 5 DAYS INCUBATION 09/05/18 23:02 Urine - Urine De Anda Urine Culture - Final NO GROWTH OBTAINED -On IV abx -ID on board Code(s): R50.9 - FEVER, UNSPECIFIED (3) Hypotension Assessment/Plan: -MUCH IMPROVED -monitor trend Code(s): I95.9 - HYPOTENSION, UNSPECIFIED (4) Neoplasm of brain causing mass effect on adjacent structures Assessment/Plan: -seen by neurosurgery -On dexamethasone IV 4mg Q6H -On Keppra 500 mg BID IVPB Code(s): D49.6 - NEOPLASM OF UNSPECIFIED BEHAVIOR OF BRAIN (5) Septic shock Assessment/Plan: -resolved -On IV abx Code(s): A41.9 - SEPSIS, UNSPECIFIED ORGANISM; R65.21 - SEVERE SEPSIS WITH SEPTIC SHOCK (6) Anemia Assessment/Plan: -stable at this time -monitor trend -conservative measures Code(s): D64.9 - ANEMIA, UNSPECIFIED Qualifiers: Other causes of anemia: chronic disease, other Qualified Code(s): D63.8 - Anemia in other chronic diseases classified elsewhere Assessment/Plan see problem list possible hospice on Tuesday if unable to get in touch with the family in [place]
--- NOTE | 2018-09-16 10:48 | PN ---
Progress Note, Physician History of Present Illness: pulmonary no change,opens eyes,not responsive - Current Medication List Current Medications: Active Medications Albuterol/Ipratropium (Duoneb -) 1 amp NEB RQID [facility] Last Admin: 09/16/18 07:20 Dose: 1 amp Dexamethasone Sodium Phosphate (Decadron Injection -) 4 mg IVPUSH Q6H-IV [facility] Last Admin: 09/16/18 09:35 Dose: 4 mg Heparin Sodium (Porcine) (Heparin -) 5,000 unit SQ TID [facility] Last Admin: 09/16/18 05:48 Dose: 5,000 unit Cefepime HCl 2 gm/ Dextrose 100 mls @ 200 mls/hr IVPB BID [facility]; Protocol Last Admin: 09/15/18 22:27 Dose: 200 mls/hr Metronidazole (Flagyl 500mg Premixed Ivpb -) 500 mg in 100 mls @ 100 mls/hr IVPB Q8H-IV [facility] Last Admin: 09/16/18 09:46 Dose: 100 mls/hr Levetiracetam (Keppra Injection -) 500 mg IVPB BID [facility] Last Admin: 09/15/18 22:27 Dose: 500 mg Pantoprazole Sodium (Protonix Iv) 40 mg IVPUSH DAILY [facility] Last Admin: 09/16/18 09:39 Dose: 40 mg - Objective Vital Signs: Vital Signs Temperature 97.7 F 09/16/18 06:00 Pulse Rate 77 09/16/18 06:00 Respiratory Rate 22 H 09/16/18 06:00 Blood Pressure 132/69 09/16/18 06:00 O2 Sat by Pulse Oximetry (%) 99 09/15/18 21:00 Constitutional: Yes: Well Nourished, Other (poorly responsive) Eyes: Yes: WNL HENT: Yes: WNL Neck: Yes: WNL Cardiovascular: Yes: Regular Rate and Rhythm, S1, S2 Respiratory: Yes: Diminished Gastrointestinal: Yes: Normal Bowel Sounds, Soft Extremities: Yes: WNL Edema: No Labs: CBC, BMP Problem List - Problems (1) CROW (acute kidney injury) Code(s): N17.9 - ACUTE KIDNEY FAILURE, UNSPECIFIED (2) Elevated troponin Code(s): R74.8 - ABNORMAL LEVELS OF OTHER SERUM ENZYMES (3) Neoplasm of brain causing mass effect on adjacent structures Code(s): D49.6 - NEOPLASM OF UNSPECIFIED BEHAVIOR OF BRAIN (4) Anemia Code(s): D64.9 - ANEMIA, UNSPECIFIED Qualifiers: Other causes of anemia: chronic disease, other Assessment/Plan ASSESSMENT AND PLAN: Multiple Brain Masses with midline shift s/p Acute Hypoxic Respiratory Failure Shock resolved Acute Kidney Injury improving Lactic Acidosis resolved +Troponins likely Demand Ischemia - decadron per neurosurgery - empiric antiepileptics - aspiration precautions - taper Fio2 to keep SpO2 >90% - DVT/GI prophylaxis - prognosis poor DR LOPEZ
[2018-09-16] MEDS: CEFEPIME 2 GM in DEXTROSE 5%-WATER - 100 ML IVPB SCH ×2 (11:00→21:05)
--- NOTE | 2018-09-16 12:59 | PN ---
Progress Note (short form) - Note Progress Note: nad afebrile clinically unchanged opens eyes does not follow commands NAD Vital Signs Period Temp Pulse Resp BP Sys/Fried Pulse Ox Last 24 Hr 97.3 F-98.8 F 74-80 20-22 104-142/59-72 99 cor-rrr lungs decreased bs at bases abd soft,nt ext +edema +NGT CBC, BMP 09/13/18 06:00 09/13/18 06:00 Microbiology 09/05/18 23:03 Blood - Peripheral Venous Blood Culture - Final NO GROWTH AFTER 5 DAYS INCUBATION 09/05/18 22:50 Blood - Peripheral Venous Blood Culture - Final NO GROWTH AFTER 5 DAYS INCUBATION 09/05/18 23:02 Urine - Urine De Anda Urine Culture - Final NO GROWTH OBTAINED a/p fever/leukocytosis-improved, leukocytosis partially due to steroids hypotension resolved crow resolved brain masses with edema on cefepime/flagyl comfort care/palliative care overall prognosis is poor Problem List - Problems (1) Septic shock Code(s): A41.9 - SEPSIS, UNSPECIFIED ORGANISM; R65.21 - SEVERE SEPSIS WITH SEPTIC SHOCK (2) Fever Code(s): R50.9 - FEVER, UNSPECIFIED (3) Hypotension Code(s): I95.9 - HYPOTENSION, UNSPECIFIED (4) 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
[2018-09-16] MEDS: levETIRAcetam 500 MG/5 ML INJECTION VIAL IVPB SCH ×2 (13:07→21:42)
[2018-09-17] MEDS: DEXAMETHASONE SOD PHOSPHATE 4 MG/1 ML VIAL IVPUSH SCH ×4 (03:14→21:17)
[2018-09-17] MEDS: HEPARIN NA (PORCINE) 5,000 UNITS/ML 1ML VIAL SQ SCH ×3 (05:39→21:18)
[2018-09-17] MEDS: ALBUTEROL SO4 2.5/IPRATROPIUM 0.5 INH SOL 3 ML VIAL.NEB. NEB SCH ×4 (07:25→20:43)
[2018-09-17] MEDS: PANTOPRAZOLE SODIUM 40 MG VIAL IVPUSH SCH (09:01)
[2018-09-17] MEDS: levETIRAcetam 500 MG/5 ML INJECTION VIAL IVPB SCH ×2 (09:58→21:38)
[2018-09-17] MEDS: CEFEPIME 2 GM in DEXTROSE 5%-WATER - 100 ML IVPB SCH ×2 (10:57→21:17)
--- NOTE | 2018-09-17 11:18 | PN ---
Progress Note, Physician Chief Complaint: AMS History of Present Illness: Extubated, was in ICU DNR now Attempts made by Palliative care team to get in touch with family in [place] with inability to reach them. Another attempt will be made to reach Merlin on Tuesday, if unable to reach them, pt's family friend Lauren grigsby with pt going to [facility] on Hospice - Current Medication List Current Medications: Active Medications Albuterol/Ipratropium (Duoneb -) 1 amp NEB RQID [facility] Last Admin: 09/17/18 11:07 Dose: 1 amp Dexamethasone Sodium Phosphate (Decadron Injection -) 4 mg IVPUSH Q6H-IV [facility] Last Admin: 09/17/18 08:54 Dose: 4 mg Heparin Sodium (Porcine) (Heparin -) 5,000 unit SQ TID [facility] Last Admin: 09/17/18 05:39 Dose: 5,000 unit Cefepime HCl 2 gm/ Dextrose 100 mls @ 200 mls/hr IVPB BID [facility]; Protocol Last Admin: 09/17/18 10:57 Dose: 200 mls/hr Metronidazole (Flagyl 500mg Premixed Ivpb -) 500 mg in 100 mls @ 100 mls/hr IVPB Q8H-IV [facility] Last Admin: 09/17/18 09:01 Dose: 100 mls/hr Levetiracetam (Keppra Injection -) 500 mg IVPB BID [facility] Last Admin: 09/17/18 09:58 Dose: 500 mg Pantoprazole Sodium (Protonix Iv) 40 mg IVPUSH DAILY [facility] Last Admin: 09/17/18 09:01 Dose: 40 mg - Objective Vital Signs: Vital Signs Temperature 97.9 F 09/17/18 10:00 Pulse Rate 77 09/17/18 10:00 Respiratory Rate 18 09/17/18 10:00 Blood Pressure 133/61 09/17/18 10:00 O2 Sat by Pulse Oximetry (%) 99 09/16/18 21:00 Constitutional: Yes: Well Nourished, No Distress, Calm Cardiovascular: Yes: Regular Rate and Rhythm Respiratory: Yes: Regular Neurological: Yes: Pre-Existing Deficit Labs: CBC, BMP 09/13/18 06:00 09/13/18 06:00 INR, PTT INR 0.91 (0.83-1.09) 09/11/18 05:15 Fibrinogen 238.0 mg/dL (238-498) 09/06/18 02:08 Problem List - Problems (1) Elevated troponin Assessment/Plan: -peaked at 3.82 then trended down with a relatively normal CK level -in setting of JULIANA, possible sepsis, 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, 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, 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, 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 and possible hemorrhage -no ischemia on ekg -unlikely ACS, more likely due to the above -echo showed grossly normal LV systolic function with no sig valvular abnl -would not recommend further cardiac work up at this time -would not use antiplatelets or anticoagulants for the elevated troponins due to reported possible intracranial hemorrhage Code(s): R74.8 - ABNORMAL LEVELS OF OTHER SERUM ENZYMES (2) Fever Assessment/Plan: -afebrile now Cultures: Microbiology 09/05/18 23:03 Blood - Peripheral Venous Blood Culture - Final NO GROWTH AFTER 5 DAYS INCUBATION 09/05/18 22:50 Blood - Peripheral Venous Blood Culture - Final NO GROWTH AFTER 5 DAYS INCUBATION 09/05/18 23:02 Urine - Urine De Anda Urine Culture - Final NO GROWTH OBTAINED -On IV abx -ID on board Code(s): R50.9 - FEVER, UNSPECIFIED (3) Hypotension Assessment/Plan: -MUCH IMPROVED -monitor trend Code(s): I95.9 - HYPOTENSION, UNSPECIFIED (4) Neoplasm of brain causing mass effect on adjacent structures Assessment/Plan: -seen by neurosurgery -On dexamethasone IV 4mg Q6H -On Keppra 500 mg BID IVPB Code(s): D49.6 - NEOPLASM OF UNSPECIFIED BEHAVIOR OF BRAIN (5) Septic shock Assessment/Plan: -resolved -On IV abx Code(s): A41.9 - SEPSIS, UNSPECIFIED ORGANISM; R65.21 - SEVERE SEPSIS WITH SEPTIC SHOCK (6) Anemia Assessment/Plan: -stable at this time -monitor trend -conservative measures Code(s): D64.9 - ANEMIA, UNSPECIFIED Qualifiers: Other causes of anemia: chronic disease, other Assessment/Plan see problem list overall poor prognosis possible hospice on Tuesday if unable to get in touch with the family in [place]
--- NOTE | 2018-09-17 12:52 | PN ---
Progress Note, Physician History of Present Illness: pulmonary no change poorly responsive,-resp distress - Current Medication List Current Medications: Active Medications Albuterol/Ipratropium (Duoneb -) 1 amp NEB RQID [facility] Last Admin: 09/17/18 11:07 Dose: 1 amp Dexamethasone Sodium Phosphate (Decadron Injection -) 4 mg IVPUSH Q6H-IV [facility] Last Admin: 09/17/18 08:54 Dose: 4 mg Heparin Sodium (Porcine) (Heparin -) 5,000 unit SQ TID [facility] Last Admin: 09/17/18 05:39 Dose: 5,000 unit Cefepime HCl 2 gm/ Dextrose 100 mls @ 200 mls/hr IVPB BID [facility]; Protocol Last Admin: 09/17/18 10:57 Dose: 200 mls/hr Metronidazole (Flagyl 500mg Premixed Ivpb -) 500 mg in 100 mls @ 100 mls/hr IVPB Q8H-IV [facility] Last Admin: 09/17/18 09:01 Dose: 100 mls/hr Levetiracetam (Keppra Injection -) 500 mg IVPB BID [facility] Last Admin: 09/17/18 09:58 Dose: 500 mg Pantoprazole Sodium (Protonix Iv) 40 mg IVPUSH DAILY [facility] Last Admin: 09/17/18 09:01 Dose: 40 mg - Objective Vital Signs: Vital Signs Temperature 97.9 F 09/17/18 10:00 Pulse Rate 77 09/17/18 10:00 Respiratory Rate 18 09/17/18 10:00 Blood Pressure 133/61 09/17/18 10:00 O2 Sat by Pulse Oximetry (%) 99 09/16/18 21:00 Constitutional: Yes: Well Nourished, Calm Eyes: Yes: WNL HENT: Yes: WNL Neck: Yes: WNL Cardiovascular: Yes: Regular Rate and Rhythm, S1, S2 Respiratory: Yes: Diminished Gastrointestinal: Yes: Normal Bowel Sounds, Soft Extremities: Yes: WNL Edema: No Problem List - Problems (1) CROW (acute kidney injury) Code(s): N17.9 - ACUTE KIDNEY FAILURE, UNSPECIFIED (2) Elevated troponin Code(s): R74.8 - ABNORMAL LEVELS OF OTHER SERUM ENZYMES (3) Neoplasm of brain causing mass effect on adjacent structures Code(s): D49.6 - NEOPLASM OF UNSPECIFIED BEHAVIOR OF BRAIN (4) Anemia Code(s): D64.9 - ANEMIA, UNSPECIFIED Qualifiers: Other causes of anemia: chronic disease, other Assessment/Plan ASSESSMENT AND PLAN: Multiple Brain Masses with midline shift s/p Acute Hypoxic Respiratory Failure Shock resolved Acute Kidney Injury improving Lactic Acidosis resolved +Troponins likely Demand Ischemia - decadron per neurosurgery - empiric antiepileptics - aspiration precautions - O2 - DVT/GI prophylaxis - prognosis poor DR LOPEZ
[2018-09-18] MEDS: DEXAMETHASONE SOD PHOSPHATE 4 MG/1 ML VIAL IVPUSH SCH ×3 (02:22→17:33)
[2018-09-18] MEDS: HEPARIN NA (PORCINE) 5,000 UNITS/ML 1ML VIAL SQ SCH ×2 (05:10→21:09)
[2018-09-18] MEDS: ALBUTEROL SO4 2.5/IPRATROPIUM 0.5 INH SOL 3 ML VIAL.NEB. NEB SCH ×4 (07:15→20:21)
--- NOTE | 2018-09-18 09:02 | PN ---
Progress Note, Physician - Current Medication List Current Medications: Active Medications Albuterol/Ipratropium (Duoneb -) 1 amp NEB RQID [facility] Last Admin: 09/18/18 07:15 Dose: 1 amp Dexamethasone Sodium Phosphate (Decadron Injection -) 4 mg IVPUSH Q6H-IV [facility] Last Admin: 09/18/18 02:22 Dose: 4 mg Heparin Sodium (Porcine) (Heparin -) 5,000 unit SQ TID [facility] Last Admin: 09/18/18 05:10 Dose: Not Given Cefepime HCl 2 gm/ Dextrose 100 mls @ 200 mls/hr IVPB BID [facility]; Protocol Last Admin: 09/17/18 21:17 Dose: 200 mls/hr Metronidazole (Flagyl 500mg Premixed Ivpb -) 500 mg in 100 mls @ 100 mls/hr IVPB Q8H-IV [facility] Last Admin: 09/18/18 02:22 Dose: 100 mls/hr Levetiracetam (Keppra Injection -) 500 mg IVPB BID [facility] Last Admin: 09/17/18 21:38 Dose: 500 mg Pantoprazole Sodium (Protonix Iv) 40 mg IVPUSH DAILY [facility] Last Admin: 09/17/18 09:01 Dose: 40 mg - Objective Vital Signs: Vital Signs Temperature 97.8 F 09/18/18 05:19 Pulse Rate 71 09/18/18 05:19 Respiratory Rate 18 09/18/18 05:19 Blood Pressure 112/69 09/18/18 05:19 O2 Sat by Pulse Oximetry (%) 97 09/17/18 21:00 Cardiovascular: Yes: S1, S2 Respiratory: Yes: Regular, CTA Bilaterally Gastrointestinal: Yes: Normal Bowel Sounds, Soft Neurological: Yes: Lethargy Labs: CBC, BMP 09/13/18 06:00 09/13/18 06:00 INR, PTT INR 0.91 (0.83-1.09) 09/11/18 05:15 Fibrinogen 238.0 mg/dL (238-498) 09/06/18 02:08 Problem List - Problems (1) Neoplasm of brain causing mass effect on adjacent structures Code(s): D49.6 - NEOPLASM OF UNSPECIFIED BEHAVIOR OF BRAIN (2) Elevated troponin Code(s): R74.8 - ABNORMAL LEVELS OF OTHER SERUM ENZYMES (3) Septic shock Code(s): A41.9 - SEPSIS, UNSPECIFIED ORGANISM; R65.21 - SEVERE SEPSIS WITH SEPTIC SHOCK Assessment/Plan - Problems (1) Elevated troponin Assessment/Plan: -peaked at 3.82 then trended down with a relatively normal CK level -in setting of JULIANA, possible sepsis, 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, 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, 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, 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 and possible hemorrhage -no ischemia on ekg -unlikely ACS, more likely due to the above -echo showed grossly normal LV systolic function with no sig valvular abnl -would not recommend further cardiac work up at this time -would not use antiplatelets or anticoagulants for the elevated troponins due to reported possible intracranial hemorrhage Code(s): R74.8 - ABNORMAL LEVELS OF OTHER SERUM ENZYMES (2) Fever Assessment/Plan: -afebrile now Cultures: Microbiology 09/05/18 23:03 Blood - Peripheral Venous Blood Culture - Final NO GROWTH AFTER 5 DAYS INCUBATION 09/05/18 22:50 Blood - Peripheral Venous Blood Culture - Final NO GROWTH AFTER 5 DAYS INCUBATION 09/05/18 23:02 Urine - Urine De Anda Urine Culture - Final NO GROWTH OBTAINED -On IV abx -ID on board Code(s): R50.9 - FEVER, UNSPECIFIED (3) Hypotension Assessment/Plan: -MUCH IMPROVED -monitor trend Code(s): I95.9 - HYPOTENSION, UNSPECIFIED (4) Neoplasm of brain causing mass effect on adjacent structures Assessment/Plan: -seen by neurosurgery -On dexamethasone IV 4mg Q6H -On Keppra 500 mg BID IVPB Code(s): D49.6 - NEOPLASM OF UNSPECIFIED BEHAVIOR OF BRAIN (5) Septic shock Assessment/Plan: -resolved -On IV abx Code(s): A41.9 - SEPSIS, UNSPECIFIED ORGANISM; R65.21 - SEVERE SEPSIS WITH SEPTIC SHOCK (6) Anemia Assessment/Plan: -stable at this time -monitor trend -conservative measures Code(s): D64.9 - ANEMIA, UNSPECIFIED Qualifiers: Other causes of anemia: chronic disease, other Assessment/Plan see problem list overall poor prognosis possible hospice unable to get in touch with the family in [place] [employer]
[2018-09-18] MEDS: PANTOPRAZOLE SODIUM 40 MG VIAL IVPUSH SCH (10:35)
[2018-09-18] MEDS: levETIRAcetam 500 MG/5 ML INJECTION VIAL IVPB SCH ×2 (12:01→21:09)
--- NOTE | 2018-09-18 12:49 | PN ---
Progress Note (short form) - Note Progress Note: nad afebrile clinically unchanged opens eyes does not follow commands NAD Vital Signs Period Temp Pulse Resp BP Sys/Fried Pulse Ox Last 24 Hr 96.9 F-97.8 F 71-87 -18 107-134/54-69 97 cor-rrr lungs decreased bs at bases abd soft,nt ext +edema CBC, BMP 09/13/18 06:00 09/13/18 06:00 Microbiology 09/05/18 23:03 Blood - Peripheral Venous Blood Culture - Final NO GROWTH AFTER 5 DAYS INCUBATION 09/05/18 22:50 Blood - Peripheral Venous Blood Culture - Final NO GROWTH AFTER 5 DAYS INCUBATION 09/05/18 23:02 Urine - Urine De Anda Urine Culture - Final NO GROWTH OBTAINED Current Medications Albuterol/Ipratropium (Duoneb -) 1 amp NEB RQID [facility] Last Admin: 09/18/18 11:09 Dose: 1 amp Dexamethasone Sodium Phosphate (Decadron Injection -) 4 mg IVPUSH Q6H-IV [facility] Last Admin: 09/18/18 10:35 Dose: 4 mg Heparin Sodium (Porcine) (Heparin -) 5,000 unit SQ TID [facility] Last Admin: 09/18/18 05:10 Dose: Not Given Cefepime HCl 2 gm/ Dextrose 100 mls @ 200 mls/hr IVPB BID [facility]; Protocol Last Admin: 09/17/18 21:17 Dose: 200 mls/hr Metronidazole (Flagyl 500mg Premixed Ivpb -) 500 mg in 100 mls @ 100 mls/hr IVPB Q8H-IV [facility] Last Admin: 09/18/18 10:35 Dose: 100 mls/hr Levetiracetam (Keppra Injection -) 500 mg IVPB BID [facility] Last Admin: 09/18/18 12:01 Dose: 500 mg Pantoprazole Sodium (Protonix Iv) 40 mg IVPUSH DAILY [facility] Last Admin: 09/18/18 10:35 Dose: 40 mg a/p fever/leukocytosis-improved, leukocytosis partially due to steroids hypotension resolved crow resolved brain masses with edema on cefepime/flagyl day #13 d/c antibiotics palliative care evaluation in progress comfort care/palliative care overall prognosis is poor Problem List - Problems (1) Septic shock Code(s): A41.9 - SEPSIS, UNSPECIFIED ORGANISM; R65.21 - SEVERE SEPSIS WITH SEPTIC SHOCK (2) Fever Code(s): R50.9 - FEVER, UNSPECIFIED (3) Hypotension Code(s): I95.9 - HYPOTENSION, UNSPECIFIED (4) 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
[2018-09-18] MEDS: CEFEPIME 2 GM in DEXTROSE 5%-WATER - 100 ML IVPB SCH (13:24)
--- NOTE | 2018-09-18 14:16 | PN ---
Progress Note (short form) - Note Progress Note: PULMONARY Poorly responsive but arousable. Vital Signs Period Temp Pulse Resp BP Sys/Fried Pulse Ox Last 24 Hr 96.9 F-98 F 71-87 16-18 107-134/54-70 97 Gen: poorly responsive Heart: RRR Lung: decreased breath sounds at the bases Abd: soft, nontender Ext: no edema CBC, BMP 09/13/18 06:00 09/13/18 06:00 Active Medications Albuterol/Ipratropium (Duoneb -) 1 amp NEB RQID [facility] Last Admin: 09/18/18 11:09 Dose: 1 amp Dexamethasone Sodium Phosphate (Decadron Injection -) 4 mg IVPUSH Q6H-IV [facility] Last Admin: 09/18/18 10:35 Dose: 4 mg Levetiracetam (Keppra Injection -) 500 mg IVPB BID [facility] Last Admin: 09/18/18 12:01 Dose: 500 mg Pantoprazole Sodium (Protonix Iv) 40 mg IVPUSH DAILY [facility] Last Admin: 09/18/18 10:35 Dose: 40 mg A/P Multiple Brain Masses with midline shift s/p Acute Hypoxic Respiratory Failure Shock resolved Acute Kidney Injury improving Lactic Acidosis resolved +Troponins likely Demand Ischemia - completed empiric antibiotics - taper decadron per neurosurgery - empiric antiepileptics - aspiration precautions - taper Fio2 to keep SpO2 >90% - DVT/GI prophylaxis
--- NOTE | 2018-09-18 20:49 | HOSP ---
Physical Examination Vital Signs: Vital Signs Temperature 98.2 F 09/18/18 18:00 Pulse Rate 78 09/18/18 18:00 Respiratory Rate 20 09/18/18 18:00 Blood Pressure 122/60 09/18/18 18:00 O2 Sat by Pulse Oximetry (%) 98 09/18/18 10:00 Labs: CBC, BMP 09/13/18 06:00 09/13/18 06:00 Hospitalist Encounter Assessment: I received information from nursing staff that patient's daughter (Keith Perea [phone] ) called and wished to revoke patient's DNR/DNI state. No health care proxy on file so will abide by daughter's wishes at this time.
[2018-09-19] MEDS: DEXAMETHASONE SOD PHOSPHATE 4 MG/1 ML VIAL IVPUSH SCH ×3 (01:14→17:36)
[2018-09-19] MEDS: HEPARIN NA (PORCINE) 5,000 UNITS/ML 1ML VIAL SQ SCH ×3 (05:36→22:09)
[2018-09-19] MEDS: ALBUTEROL SO4 2.5/IPRATROPIUM 0.5 INH SOL 3 ML VIAL.NEB. NEB SCH ×4 (08:56→21:00)
[2018-09-19] MEDS: PANTOPRAZOLE SODIUM 40 MG VIAL IVPUSH SCH (10:18)
[2018-09-19] MEDS: levETIRAcetam 500 MG/5 ML INJECTION VIAL IVPB SCH ×2 (10:18→22:09)
--- NOTE | 2018-09-19 11:41 | PN ---
Progress Note, Physician Chief Complaint: AMS History of Present Illness: Extubated, was in ICU DNR/DNI now Attempts made by Palliative care team to get in touch with family in [place] with inability to reach them. Attempts made by and palliative care team to reach daughter via email, awaiting response - Current Medication List Current Medications: Active Medications Albuterol/Ipratropium (Duoneb -) 1 amp NEB RQID [facility] Last Admin: 09/19/18 08:56 Dose: 1 amp Dexamethasone Sodium Phosphate (Decadron Injection -) 4 mg IVPUSH Q8H-IV [facility] Last Admin: 09/19/18 10:18 Dose: 4 mg Heparin Sodium (Porcine) (Heparin -) 5,000 unit SQ TID [facility] Last Admin: 09/19/18 05:36 Dose: 5,000 unit Levetiracetam (Keppra Injection -) 500 mg IVPB BID [facility] Last Admin: 09/19/18 10:18 Dose: 500 mg Pantoprazole Sodium (Protonix Iv) 40 mg IVPUSH DAILY [facility] Last Admin: 09/19/18 10:18 Dose: 40 mg - Objective Vital Signs: Vital Signs Temperature 98.0 F 09/19/18 10:00 Pulse Rate 92 H 09/19/18 10:00 Respiratory Rate 20 09/19/18 10:00 Blood Pressure 104/56 L 09/19/18 10:00 O2 Sat by Pulse Oximetry (%) 96 09/18/18 21:00 Constitutional: Yes: Well Nourished, No Distress, Calm Cardiovascular: Yes: Regular Rate and Rhythm Respiratory: Yes: Regular Gastrointestinal: Yes: Normal Bowel Sounds, Soft Musculoskeletal: Yes: Muscle Weakness Neurological: Yes: Pre-Existing Deficit Labs: CBC, BMP 09/13/18 06:00 09/13/18 06:00 INR, PTT INR 0.91 (0.83-1.09) 09/11/18 05:15 Fibrinogen 238.0 mg/dL (238-498) 09/06/18 02:08 Problem List - Problems (1) Elevated troponin Assessment/Plan: -peaked at 3.82 then trended down with a relatively normal CK level -in setting of JULIANA, possible sepsis, 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, 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, 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, 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 and possible hemorrhage -no ischemia on ekg -unlikely ACS, more likely due to the above -echo showed grossly normal LV systolic function with no sig valvular abnl -would not recommend further cardiac work up at this time -would not use antiplatelets or anticoagulants for the elevated troponins due to reported possible intracranial hemorrhage Code(s): R74.8 - ABNORMAL LEVELS OF OTHER SERUM ENZYMES (2) Fever Assessment/Plan: -afebrile now Cultures: Microbiology 09/05/18 23:03 Blood - Peripheral Venous Blood Culture - Final NO GROWTH AFTER 5 DAYS INCUBATION 09/05/18 22:50 Blood - Peripheral Venous Blood Culture - Final NO GROWTH AFTER 5 DAYS INCUBATION 09/05/18 23:02 Urine - Urine [place] Urine Culture - Final NO GROWTH OBTAINED -On IV abx -ID on board Code(s): R50.9 - FEVER, UNSPECIFIED (3) Hypotension Assessment/Plan: -MUCH IMPROVED -monitor trend Code(s): I95.9 - HYPOTENSION, UNSPECIFIED (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
--- NOTE | 2018-09-19 14:37 | PN ---
Progress Note, Physician History of Present Illness: pulmonary AWAKE,EYES OPEN,NOT RESPONSIVE - Current Medication List Current Medications: Active Medications Albuterol/Ipratropium (Duoneb -) 1 amp NEB RQID [facility] Last Admin: 09/19/18 11:52 Dose: 1 amp Dexamethasone Sodium Phosphate (Decadron Injection -) 4 mg IVPUSH Q8H-IV [facility] Last Admin: 09/19/18 10:18 Dose: 4 mg Heparin Sodium (Porcine) (Heparin -) 5,000 unit SQ TID [facility] Last Admin: 09/19/18 14:27 Dose: 5,000 unit Levetiracetam (Keppra Injection -) 500 mg IVPB BID [facility] Last Admin: 09/19/18 10:18 Dose: 500 mg Pantoprazole Sodium (Protonix Iv) 40 mg IVPUSH DAILY [facility] Last Admin: 09/19/18 10:18 Dose: 40 mg - Objective Vital Signs: Vital Signs Temperature 97.6 F 09/19/18 14:04 Pulse Rate 89 09/19/18 14:04 Respiratory Rate 16 09/19/18 14:04 Blood Pressure 107/62 09/19/18 14:04 O2 Sat by Pulse Oximetry (%) 96 09/18/18 21:00 Constitutional: Yes: Well Nourished, Other (UNRESPONSIVE) Eyes: Yes: WNL HENT: Yes: WNL Neck: Yes: Supple Cardiovascular: Yes: Regular Rate and Rhythm, S1, S2 Respiratory: Yes: Diminished Gastrointestinal: Yes: Normal Bowel Sounds, Soft Extremities: Yes: WNL Edema: No Labs: Problem List - Problems (1) CROW (acute kidney injury) Code(s): N17.9 - ACUTE KIDNEY FAILURE, UNSPECIFIED (2) Elevated troponin Code(s): R74.8 - ABNORMAL LEVELS OF OTHER SERUM ENZYMES (3) Neoplasm of brain causing mass effect on adjacent structures Code(s): D49.6 - NEOPLASM OF UNSPECIFIED BEHAVIOR OF BRAIN (4) Anemia Code(s): D64.9 - ANEMIA, UNSPECIFIED Qualifiers: Other causes of anemia: chronic disease, other Assessment/Plan ASSESSMENT AND PLAN: Multiple Brain Masses with midline shift s/p Acute Hypoxic Respiratory Failure Shock resolved Acute Kidney Injury improving Lactic Acidosis resolved +Troponins likely Demand Ischemia - decadron per neurosurgery - empiric anti-epileptics - aspiration precautions - O2 - DVT/GI prophylaxis - prognosis poor DR LOPEZ
[2018-09-19 15:16] VITALS: BMI 26.9
[2018-09-20] MEDS: DEXAMETHASONE SOD PHOSPHATE 4 MG/1 ML VIAL IVPUSH SCH ×3 (02:25→17:43)
[2018-09-20] MEDS: HEPARIN NA (PORCINE) 5,000 UNITS/ML 1ML VIAL SQ SCH ×3 (05:42→21:49)
[2018-09-20] MEDS: ALBUTEROL SO4 2.5/IPRATROPIUM 0.5 INH SOL 3 ML VIAL.NEB. NEB SCH ×2 (08:17→11:34)
--- NOTE | 2018-09-20 08:31 | PN ---
Progress Note, Physician Chief Complaint: AMS History of Present Illness: Extubated, was in ICU DNR now Attempts made by Palliative care team to get in touch with family in [place] with inability to reach them. Attempts made by SW and palliative medicine via email. Awaiting response. - Current Medication List Current Medications: Active Medications Albuterol/Ipratropium (Duoneb -) 1 amp NEB RQID [facility] Last Admin: 09/20/18 08:17 Dose: 1 amp Dexamethasone Sodium Phosphate (Decadron Injection -) 4 mg IVPUSH Q8H-IV [facility] Last Admin: 09/20/18 02:25 Dose: 4 mg Heparin Sodium (Porcine) (Heparin -) 5,000 unit SQ TID [facility] Last Admin: 09/20/18 05:42 Dose: 5,000 unit Levetiracetam (Keppra Injection -) 500 mg IVPB BID [facility] Last Admin: 09/19/18 22:09 Dose: 500 mg Pantoprazole Sodium (Protonix Iv) 40 mg IVPUSH DAILY [facility] Last Admin: 09/19/18 10:18 Dose: 40 mg - Objective Vital Signs: Vital Signs Temperature 97.9 F 09/20/18 06:00 Pulse Rate 86 09/20/18 06:00 Respiratory Rate 16 09/20/18 06:00 Blood Pressure 117/61 09/20/18 06:00 O2 Sat by Pulse Oximetry (%) 99 09/19/18 21:00 Constitutional: Yes: Well Nourished, No Distress, Calm Cardiovascular: Yes: Regular Rate and Rhythm Respiratory: Yes: Regular Gastrointestinal: Yes: Normal Bowel Sounds, Soft Musculoskeletal: Yes: Muscle Weakness Edema: No Peripheral Pulses WNL: Yes Neurological: Yes: Pre-Existing Deficit Labs: CBC, BMP 09/13/18 06:00 09/13/18 06:00 INR, PTT INR 0.91 (0.83-1.09) 09/11/18 05:15 Fibrinogen 238.0 mg/dL (238-498) 09/06/18 02:08 Problem List - Problems (1) Elevated troponin Assessment/Plan: -peaked at 3.82 then trended down with a relatively normal CK level -in setting of JULIANA, possible sepsis, 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, 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, 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, 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 and possible hemorrhage -no ischemia on ekg -unlikely ACS, more likely due to the above -echo showed grossly normal LV systolic function with no sig valvular abnl -would not recommend further cardiac work up at this time -would not use antiplatelets or anticoagulants for the elevated troponins due to reported possible intracranial hemorrhage Code(s): R74.8 - ABNORMAL LEVELS OF OTHER SERUM ENZYMES (2) Fever Assessment/Plan: -afebrile now Cultures: Microbiology 09/05/18 23:03 Blood - Peripheral Venous Blood Culture - Final NO GROWTH AFTER 5 DAYS INCUBATION 09/05/18 22:50 Blood - Peripheral Venous Blood Culture - Final NO GROWTH AFTER 5 DAYS INCUBATION 09/05/18 23:02 Urine - Urine [place] Urine Culture - Final NO GROWTH OBTAINED -On IV abx -ID on board Code(s): R50.9 - FEVER, UNSPECIFIED (3) Hypotension Assessment/Plan: -MUCH IMPROVED -monitor trend Code(s): I95.9 - HYPOTENSION, UNSPECIFIED (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
[2018-09-20] MEDS: levETIRAcetam 500 MG/5 ML INJECTION VIAL IVPB SCH ×2 (09:57→21:49)
[2018-09-20] MEDS: PANTOPRAZOLE SODIUM 40 MG VIAL IVPUSH SCH (09:57)
--- NOTE | 2018-09-20 13:35 | PN ---
Progress Note, Physician History of Present Illness: pulmonary no change,awake,not responsive - Current Medication List Current Medications: Active Medications Albuterol/Ipratropium (Duoneb -) 1 amp NEB RQID [facility] Last Admin: 09/20/18 11:34 Dose: 1 amp Dexamethasone Sodium Phosphate (Decadron Injection -) 4 mg IVPUSH Q8H-IV [facility] Last Admin: 09/20/18 09:57 Dose: 4 mg Heparin Sodium (Porcine) (Heparin -) 5,000 unit SQ TID [facility] Last Admin: 09/20/18 05:42 Dose: 5,000 unit Levetiracetam (Keppra Injection -) 500 mg IVPB BID [facility] Last Admin: 09/20/18 09:57 Dose: 500 mg Pantoprazole Sodium (Protonix Iv) 40 mg IVPUSH DAILY [facility] Last Admin: 09/20/18 09:57 Dose: 40 mg - Objective Vital Signs: Vital Signs Temperature 98.2 F 09/20/18 13:24 Pulse Rate 97 H 09/20/18 13:24 Respiratory Rate 17 09/20/18 13:24 Blood Pressure 123/69 09/20/18 13:24 O2 Sat by Pulse Oximetry (%) 99 09/19/18 21:00 Constitutional: Yes: Well Nourished, Other (unresponsive) Eyes: Yes: WNL HENT: Yes: WNL Neck: Yes: WNL Cardiovascular: Yes: Regular Rate and Rhythm, S1, S2 Respiratory: Yes: Diminished Gastrointestinal: Yes: Normal Bowel Sounds, Soft Extremities: Yes: WNL Edema: No Labs: CBC, BMP Problem List - Problems (1) CROW (acute kidney injury) Code(s): N17.9 - ACUTE KIDNEY FAILURE, UNSPECIFIED (2) Elevated troponin Code(s): R74.8 - ABNORMAL LEVELS OF OTHER SERUM ENZYMES (3) Neoplasm of brain causing mass effect on adjacent structures Code(s): D49.6 - NEOPLASM OF UNSPECIFIED BEHAVIOR OF BRAIN (4) Anemia Code(s): D64.9 - ANEMIA, UNSPECIFIED Qualifiers: Other causes of anemia: chronic disease, other Assessment/Plan ASSESSMENT AND PLAN: Multiple Brain Masses with midline shift s/p Acute Hypoxic Respiratory Failure Shock resolved Acute Kidney Injury improving Lactic Acidosis resolved +Troponins likely Demand Ischemia - decadron per neurosurgery - empiric anti-epileptics - aspiration precautions - O2 - DVT/GI prophylaxis - prognosis poor - supportive care DR LOPEZ
[2018-09-21] MEDS: DEXAMETHASONE SOD PHOSPHATE 4 MG/1 ML VIAL IVPUSH SCH ×2 (02:22→10:59)
[2018-09-21] MEDS: HEPARIN NA (PORCINE) 5,000 UNITS/ML 1ML VIAL SQ SCH (05:19)
--- NOTE | 2018-09-21 08:22 | PN ---
Progress Note, Physician - Current Medication List Current Medications: Active Medications Dexamethasone Sodium Phosphate (Decadron Injection -) 4 mg IVPUSH Q8H-IV [facility] Last Admin: 09/21/18 02:22 Dose: 4 mg Heparin Sodium (Porcine) (Heparin -) 5,000 unit SQ TID [facility] Last Admin: 09/21/18 05:19 Dose: 5,000 unit Levetiracetam (Keppra Injection -) 500 mg IVPB BID [facility] Last Admin: 09/20/18 21:49 Dose: 500 mg Pantoprazole Sodium (Protonix Iv) 40 mg IVPUSH DAILY [facility] Last Admin: 09/20/18 09:57 Dose: 40 mg - Objective Vital Signs: Vital Signs Temperature 97.3 F L 09/21/18 06:00 Pulse Rate 86 09/21/18 06:00 Respiratory Rate 20 09/21/18 06:00 Blood Pressure 107/64 09/21/18 06:00 O2 Sat by Pulse Oximetry (%) 99 09/20/18 21:00 Cardiovascular: Yes: S1, S2 Respiratory: Yes: Regular, CTA Bilaterally Gastrointestinal: Yes: Normal Bowel Sounds, Soft Neurological: Yes: Lethargy Labs: CBC, BMP 09/13/18 06:00 09/13/18 06:00 INR, PTT INR 0.91 (0.83-1.09) 09/11/18 05:15 Fibrinogen 238.0 mg/dL (238-498) 09/06/18 02:08 Problem List - Problems (1) Neoplasm of brain causing mass effect on adjacent structures Code(s): D49.6 - NEOPLASM OF UNSPECIFIED BEHAVIOR OF BRAIN (2) Elevated troponin Code(s): R74.8 - ABNORMAL LEVELS OF OTHER SERUM ENZYMES (3) Septic shock Code(s): A41.9 - SEPSIS, UNSPECIFIED ORGANISM; R65.21 - SEVERE SEPSIS WITH SEPTIC SHOCK Assessment/Plan - Problems (1) Elevated troponin Assessment/Plan: -peaked at 3.82 then trended down with a relatively normal CK level -in setting of JULIANA, possible sepsis, 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, and 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, 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, 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 and possible hemorrhage -no ischemia on ekg -unlikely ACS, more likely due to the above -echo showed grossly normal LV systolic function with no sig valvular abnl -would not recommend further cardiac work up at this time -would not use antiplatelets or anticoagulants for the elevated troponins due to reported possible intracranial hemorrhage Code(s): R74.8 - ABNORMAL LEVELS OF OTHER SERUM ENZYMES (2) Fever Assessment/Plan: -afebrile now Cultures: Microbiology 09/05/18 23:03 Blood - Peripheral Venous Blood Culture - Final NO GROWTH AFTER 5 DAYS INCUBATION 09/05/18 22:50 Blood - Peripheral Venous Blood Culture - Final NO GROWTH AFTER 5 DAYS INCUBATION 09/05/18 23:02 Urine - Urine [place] Urine Culture - Final NO GROWTH OBTAINED -On IV abx -ID on board Code(s): R50.9 - FEVER, UNSPECIFIED (3) Hypotension Assessment/Plan: -MUCH IMPROVED -monitor trend Code(s): I95.9 - HYPOTENSION, UNSPECIFIED (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
[2018-09-21] MEDS: levETIRAcetam 500 MG/5 ML INJECTION VIAL IVPB SCH (10:59)
[2018-09-21] MEDS: PANTOPRAZOLE SODIUM 40 MG VIAL IVPUSH SCH (10:59)
--- NOTE | 2018-09-21 11:16 | PN ---
Progress Note (short form) - Note Progress Note: PULMONARY Poorly responsive, no fevers recorded. Vital Signs Period Temp Pulse Resp BP Sys/Fried Pulse Ox Last 24 Hr 97.3 F-98.5 F 86-97 16-20 107-134/46-73 99 Gen: poorly responsive Heart: RRR Lung: decreased breath sounds at the bases Abd: soft, nontender Ext: no edema CBC, BMP 09/13/18 06:00 09/13/18 06:00 Active Medications Dexamethasone Sodium Phosphate (Decadron Injection -) 4 mg IVPUSH Q8H-IV [facility] Last Admin: 09/21/18 10:59 Dose: 4 mg Heparin Sodium (Porcine) (Heparin -) 5,000 unit SQ TID [facility] Last Admin: 09/21/18 05:19 Dose: 5,000 unit Levetiracetam (Keppra Injection -) 500 mg IVPB BID [facility] Last Admin: 09/21/18 10:59 Dose: 500 mg Pantoprazole Sodium (Protonix Iv) 40 mg IVPUSH DAILY [facility] Last Admin: 09/21/18 10:59 Dose: 40 mg A/P Multiple Brain Masses with midline shift s/p Acute Hypoxic Respiratory Failure Shock resolved Acute Kidney Injury improving Lactic Acidosis resolved +Troponins likely Demand Ischemia - completed empiric antibiotics - taper decadron per neurosurgery - empiric antiepileptics - aspiration precautions - taper Fio2 to keep SpO2 >90% - DVT/GI prophylaxis
--- NOTE | 2018-09-21 12:11 | DS ---
Physical Examination Vital Signs: Vital Signs Temperature 97.3 F L 09/21/18 06:00 Pulse Rate 86 09/21/18 06:00 Respiratory Rate 20 09/21/18 06:00 Blood Pressure 107/64 09/21/18 06:00 O2 Sat by Pulse Oximetry (%) 99 09/20/18 21:00 Labs: CBC, BMP 09/13/18 06:00 09/13/18 06:00 Discharge Summary Reason For Visit: SEPTIC SHOCK Current Active Problems Elevated troponin (Acute) Fever (Acute) Hypotension (Acute) Neoplasm of brain causing mass effect on adjacent structures (Acute) Septic shock (Acute) Hospital Course: CHIEF COMPLAINT: unresponsiveness PCP: Kylie History obtained from EMR as patient is unresponsive and nonverbal HISTORY OF PRESENT ILLNESS: 78 yo female w/ pmh of HTN, HLD, dementia, and parkinson's BIBA from [place] for unresponsiveness. Patient was in her usual state of health at 6pm on 09/05. Upon arrival patient was non-responsive w/ noted rectal temperature of 106.2. Patient was intubated for 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 and right IJ was placed for pressor administration. Broad spectrum antibiotics- vancomycin and zosyn were administered. ER course was notable for: (1) right IJ (2) intubation (3) zosyn, vancomycin CT head done R parietal > frontal isodense possibly dural based lesions possibly invasive/ malignant meningiomas, with edema/mass effect Sepsis on Cefepime and Flagyl Keppra for sz prophylaxis seen by FAUSTINO not a candidate for surgery on dexamethasone NG tube in place for feeds Condition: Guarded - Instructions Diet, Activity, Other Instructions: taper decadron from bid to once daily over 3 days then stop ng tube for tube feeds glucerna full code Referrals: Erma De Souza MD [Staff Physician] - Disposition: [facility] - Home Medications Comprehensive Discharge Medication List: Ambulatory Orders Calcium Carbonate [Oyster Shell Calcium] 500 mg PO DAILY 07/08/16 Gabapentin 300 mg PO TID 07/08/16 Pramipexole Di-HCl [Mirapex] 0.125 mg PO DAILY 07/08/16 Ranitidine [Zantac -] 150 mg PO DAILY 07/08/16 Simvastatin 20 mg PO DAILY 07/08/16 Albuterol 2.5/Ipratropium 0.5 [Duoneb -] 3 ml IH QID 09/06/18 Heparin - 5,000 unit SQ BID 09/06/18 Polyvinyl Alcohol [Artificial Tears] 1 drop OD DAILY 09/06/18
[2018-09-21 13:30] VITALS: BP 116/59; PULSE 89; TEMP 99.1
[2018-09-21] MEDS ORDERED: DEXAMETHASONE SOD PHOSPHATE 4 MG/1 ML VIAL IVPUSH SCH (22:00)
== END 2018-09-21 13:41 | disposition hospice, inpatient (51) | DRG 870 ==
LOC: JER 22:19 → JERBED 09-06 00:27 → JICU 09-06 05:44 → J5S 09-12 21:41
PROVIDERS: ADMIT Internal Medicine; ATTEND Family Medicine
PROC: 5A1955Z Respiratory Ventilation, Greater than 96 Consecutive Hours (ICD-10-PCS; principal; 2018-09-06)
PROC: 0BH17EZ Insertion of Endotracheal Airway into Trachea, Via Natural or Artificial Opening (ICD-10-PCS; 2018-09-06)
PROC: 05HM33Z Insertion of Infusion Device into Right Internal Jugular Vein, Percutaneous Approach (ICD-10-PCS; 2018-09-06)
PROC: B543ZZA Ultrasonography of Right Jugular Veins, Guidance (ICD-10-PCS; 2018-09-06)
PROC: 0DH67UZ Insertion of Feeding Device into Stomach, Via Natural or Artificial Opening (ICD-10-PCS; 2018-09-06)
PROC: 3E0G76Z Introduction of Nutritional Substance into Upper GI, Via Natural or Artificial Opening (ICD-10-PCS; 2018-09-06)
DX: A41.9 Sepsis, unspecified organism (principal); R65.21 Severe sepsis with septic shock; G93.6 Cerebral edema; J96.01 Acute respiratory failure with hypoxia; E87.0 Hyperosmolality and hypernatremia; E87.2 Acidosis; N17.9 Acute kidney failure, unspecified; D68.9 Coagulation defect, unspecified; I24.8 Other forms of acute ischemic heart disease; I10 Essential (primary) hypertension; E78.5 Hyperlipidemia, unspecified; G20 Parkinson's disease; F02.80 Dementia in other diseases classified elsewhere, unspecified severity, without behavioral disturbance, psychotic disturbance, mood disturbance, and anxiety; K21.9 Gastro-esophageal reflux disease without esophagitis; G30.9 Alzheimer's disease, unspecified; G25.81 Restless legs syndrome; G62.9 Polyneuropathy, unspecified; E86.0 Dehydration; E87.6 Hypokalemia; D49.6 Neoplasm of unspecified behavior of brain; D64.9 Anemia, unspecified; F32.9 Major depressive disorder, single episode, unspecified
CPT/HCPCS: 36415; 36430; 36600; 70450-TC; 71045-TC-FY; 71250-TC; 74176-TC; 76705-TC; 80048; 80053; 81003; 81015; 82375; 82436; 82550; 82553; 82570; 82803; 83050; 83605; 83735; 83935; 84100; 84133; 84300; 84484; 84540; 85025; 85027; 85379; 85384; 85610; 85730; 86850; 86900; 86901; 87040; 87086; 93005; 93010; 93306-TC; 94002; 94640; 97161-GP; 99285-25; G0480; J0131; J1100; J1644; P9017